=== PATIENT | male | born 1945 | race Caucasian/White ===

== ENCOUNTER 2016-07-11 18:16 | Emergency (ER) | payer MEDICARE, MEDICAID ==
--- NOTE | 2016-07-11 18:32 | ED Physician Chart ---
Chief Complaint/HPI - Patient Information Date Seen:: 07/11/16 Time Seen:: 18:25 Chief Complaint:: Urinary retention for at least 3 hours. History of Present Illness:: Pt has h/o BPH with prior urinary retention, requiring Jerome catheterization. Pt was managed by his urologist Dr. Shaikh. Pt has had recurrence of urinary retention for at least 3 hours prior to arrival to this ER. No new medication use. Pt has had much pressure in suprapubic area. No fever. No N/V/D with last BM this morning, normal in color/consistency. No hematochezia or melena. Allergies:: NKA Vitals:: see Nurse Note. Historian:: Patient Family MD/PCP:: unknown LMP:: N/A Review:: Nurse's Note Reviewed Review of Systems - Review of Systems General/Constitutional: No fever, No chills, No weight loss, No weakness, No diaphoresis, No edema, No loss of appetite Skin: No skin lesions, No rash, No bruising Head: No headache, No light-headedness Eyes: No loss of vision, No pain, No diplopia ENT: Earache Neck: No neck pain, No swelling, No thyromegaly, No stiffness, No mass noted Cardio Vascular: No chest pain, No palpitations, No PND, No orthopnea, No edema Pulmonary: No SOB, No cough, No sputum, No wheezing GI: No nausea, No vomiting, No diarrhea, Pain (suprapubic pressure pain due to urinary retention, see HPI.), No melena, No hematochezia, No constipation, No hematemesis G/U: No dysuria, No frequency, No hematuria, Other (urinary retention, see HPI.) Musculoskeletal: No bone or joint pain, No back pain, No muscle pain Endocrine: No polyuria, No polydipsia Psychiatric: No prior psych history Hematopoietic: No bruising, No lymphadenopathy Allergic/Immuno: No urticaria, No angioedema Neurological: No syncope, No focal symptoms, No weakness, No paresthesia, No headache, No seizure, No dizziness, No confusion, No vertigo Past Medical History - Past Medical History Past Medical History: Other (BPH, colon CA '94, s/p surgical resection, on remission.) Family History: None Social History: Smoker (One cigar every 3 days. Pt has been informed about health risks associated with tobacco and has been advised to quit. Pt acknowledges understanding.), Alcohol (Occasional), Single, Other (lives with her brother.) Employment:: unemployed. Surgical History: other (partial colonic resection in .) Psychiatricy History: None Medication: None Family Medical History - Family Member Mother History Unknown: Yes Ethnicity: Non- Living Status: Still Living Physical Exam - Physical Examination General/Constitutional: Awake, Well-developed, well-nourished, Alert, GCS 15, Non-toxic appearing, Ambulatory Other Gen/Cons comments:: Breathes comfortably, speaks clearly, and ambulates without difficulty. Pt has mild distress due to urinary retention. Eyes: Lids, conjuctiva normal Skin: Nl inspection, No rash, No skin lesions, No ecchymosis, Well hydrated, No lymphadenopathy ENMT: External ears, nose nl, Nasal exam nl, Lips, teeth, gums nl, Oropharynx nl Neck: Nontender, Full ROM w/o pain, No nuchal rigidity, No mass, No stridor Respiratory: Nl effort/Exclusion, Clear to Auscultation, No Wheeze/Rhonchi/Rales Cardio Vascular: RRR, No murmur, gallop, rubs, NL S1 S2 GI: No organomegaly, No hernia, Normal BS's, No mass/bruits, No McBurney tenderness Other GI comments:: suprapubic distension noticed with tenderness. No R/G. Pt declined rectal exam as he was diagnosed with BPH in the past with the same symptom. Pt prefers to be followed by his urologist Dr. Shaikh for further evaluation tomorrow. : No CVA tenderness, NL external genitalia Other comments:: Normal male external genitalia. Testes are descended bilaterally. No scrotal tenderness or swelling. No penile discharge or bleeding. No inguinal lymphadenopathy. Extremities: No edema Neuro/Psych: Alert/oriented (oriented x 3), Judgement/insight normal, Mood normal, Normal gait, No focal deficits Labs/Radiology/EKG Results - Lab Results Results: Laboratory Tests 07/11/16 07/11/16 07/11/16 18:45 19:17 19:17 WBC 7.6 RBC 5.29 Hgb 15.8 Hct 46.5 MCV 87.9 MCH 29.9 MCHC Differential 34.0 RDW 12.7 Plt Count 161 MPV 8.5 Neutrophils % 72.4 Lymphocytes % 19.2 L Monocytes % 6.6 Eosinophils % 1.7 Basophils % 0.1 PT 10.9 INR 1.05 PTT (Actin FS) 27.9 Sodium Potassium Chloride Carbon Dioxide Anion Gap BUN Creatinine Est GFR ( Amer) Est GFR (Non-Af Amer) BUN/Creatinine Ratio Glucose Calcium Urine Source JEROME [place] Urine Color STRAW Urine Clarity CLEAR Urine pH 5.5 Ur Specific [place] Urine Protein NEGATIVE Urine Glucose (UA) NEGATIVE Urine Ketones NEGATIVE Urine Blood TRACE Urine Nitrate NEGATIVE Urine Bilirubin NEGATIVE Urine Urobilinogen 0.2 Ur Leukocyte Esterase NEGATIVE Urine RBC 0-1 Urine WBC 0-2 Ur Epithelial Cells RARE Urine Bacteria FEW 07/11/16 19:17 WBC RBC Hgb Hct MCV MCH MCHC Differential RDW Plt Count MPV Neutrophils % Lymphocytes % Monocytes % Eosinophils % Basophils % PT INR PTT (Actin FS) Sodium 138 Potassium 3.8 Chloride 108 H Carbon Dioxide 23.0 Anion Gap 10.8 BUN 11 Creatinine 0.9 Est GFR ( Amer) TNP Est GFR (Non-Af Amer) TNP BUN/Creatinine Ratio 12.2 Glucose 108 H Calcium 9.4 Urine Source Urine Color Urine Clarity Urine pH Ur Specific [place] Urine Protein Urine Glucose (UA) Urine Ketones Urine Blood Urine Nitrate Urine Bilirubin Urine Urobilinogen Ur Leukocyte Esterase Urine RBC Urine WBC Ur Epithelial Cells Urine Bacteria ED Septic Shock - . Is Septic Shock (SBP<90, OR Lactate>4 mmol\L) present?: No Reassessment (Disposition) - Reassessment Reassessment:: 1930 Pt has been repeatedly evaluated. Pt feels much better after Jerome catherization. Awaiting lab results. 2004 Pt remains stable without suprapubic pain or discomfort. Jerome catheter functions properly with good urine flow. Lab results just became available. Lab findings have been reviewed with pt. Pt requests to go home now and does not want further observation/management in hospital. Aftercare instructions given. Instructions on Jerome catheter and bag care is to be provided by nursing staff prior to discharge. Reassessment Condition:: Improved - Diagnosis Diagnosis:: Urinary retention due to BPH, stable and resolved with Jerome catheter insertion. - Aftercare/Follow up Instructions Aftercare/Follow-Up Instructions:: Refer to Discharge Instructions Notes:: Jerome catheter and bag care as instructed. F/U with urologist Dr. Shaikh in one day for follow up and further care. Return to ER immediately if condition worsens or if any further questions/ problems. Medication Prescribed:: None - Patient Disposition Discharge/Transfer:: Home Time:: 20:10 Condition at Disposition:: Stable, Improved
[2016-07-11 19:20] LABS: % BASOPHILS 0.1 % (0.0-2.0); % EOSINOPHILS 1.7 % (0.0-5.0); % LYMPHOCYTES 19.2 % (20.0-50.0); % MONOCYTES 6.6 % (2.0-10.0); % NEUTROPHILS 72.4 % (40.0-80.0); HEMATOCRIT 46.5 % (39.0-49.0); HEMOGLOBIN 15.8 gm/dL (12.6-17.4); MEAN CELL VOLUME 87.9 fl (80-99); MEAN CORPUSCULAR HEMOGLOBIN 29.9 pg (27.0-31.0); MEAN PLATELET VOLUME 8.5 fl; NEUTROPHILE ABSOLUTE 5.5 Th/cmm (1.8-8.0); PLATELET COUNT 161 Th/cmm (150-400); RED BLOOD COUNT 5.29 Mil/cmm (3.80-5.80); RED CELL DISTRIBUTION WIDTH 12.7 % (11.5-20.0); WHITE BLOOD COUNT 7.6 Th/cmm (4.8-10.8)
[2016-07-11 19:36] LABS: INR 1.05 (0.5-1.4); PROTHROMBIN TIME (TEST) 10.9 SECONDS (9.5-11.5)
[2016-07-11 19:39] LABS: ANION GAP 10.8 (7.0-16.0); BUN - UREA NITROGEN 11 mg/dL (7-25); BUN/CREATININE RATIO 12.2; CALCIUM SERUM 9.4 mg/dL (8.6-10.3); CHLORIDE 108 mEq/L (98-107); CREATININE - SERUM 0.9 mg/dL (0.7-1.3); GLUCOSE 108 mg/dL (70-105); POTASSIUM SERUM 3.8 mEq/L (3.5-5.1); SODIUM SERUM 138 mEq/L (136-145)
[2016-07-11 19:48] LABS: URINE BILIRUBIN NEGATIVE (NEGATIVE); URINE BLOOD TRACE (NEGATIVE); URINE COLOR STRAW; URINE GLUCOSE (UA) NEGATIVE (NEGATIVE); URINE KETONE NEGATIVE (NEGATIVE); URINE PH 5.5; URINE PROTEIN NEGATIVE (NEGATIVE); URINE UROBILINOGEN 0.2 E.U./dL (0.2 - 1.0)
[2016-07-11 19:49] LABS: URINE BACTERIA FEW /hpf (NONE SEEN); URINE EPITHELIAL CELLS RARE /lpf (FEW); URINE RBC 0-1 /hpf (0-5); URINE WBC 0-2 /hpf (0-5)
== END 2016-07-11 20:25 | disposition home or self-care (01) ==
LOC: ER 18:16
DX: N40.0 Benign prostatic hyperplasia without lower urinary tract symptoms (principal); R33.9 Retention of urine, unspecified; F17.210 Nicotine dependence, cigarettes, uncomplicated; Z43.5 Encounter for attention to cystostomy; Z98.890 Other specified postprocedural states
CPT/HCPCS: 36415-UA; 80048-TC; 81001-TC; 85025-TC; 85610-TC; Z7502; Z7610

== ENCOUNTER 2016-07-12 11:15 | Emergency (ER) | payer MEDICARE, MEDICAID ==
--- NOTE | 2016-07-12 11:41 | ED Physician Chart ---
Male Urogenital HPI - General Chief complaint: Urinary Retention Stated complaint: DISCOMFORT ON CATHETER Time Seen by Provider: 07/12/16 11:20 Source: patient, family Mode of arrival: ambulatory Limitations: no limitations - History of Present Illness Complaint: other (Null Catheter Discomfort) Onset (ago): day(s) Duration: intermittent Location: penis Severity: mild Severity scale (1-10): 2 Quality: dull Improves with: none Worsens with: none indwelling catheter Reports: denies other symptoms - Related Data Home Medications Medication Instructions Recorded Confirmed NK [No Home Meds] 07/12/16 07/12/16 Allergies Allergy/AdvReac Type Severity Reaction Status Date / Time No Known Allergies Allergy Verified 07/11/16 18:30 Family Medical History - Family Member Mother History Unknown: Yes Ethnicity: Non- Living Status: Still Living Physical Exam - General Limitations: no limitations General appearance: alert, in no apparent distress - Head Head exam: atraumatic - Eye Eye exam: Present: normal appearance, PERRL, EOMI - ENT ENT exam: normal exam - Expanded ENT Exam Mouth exam: Present: normal external inspection Teeth exam: Present: normal inspection Throat exam: Present: normal inspection - Neck Neck exam: Present: normal inspection - Chest Chest inspection: Present: normal inspection - Respiratory Respiratory exam: Present: normal lung sounds bilaterally - Cardiovascular Cardiovascular exam: Present: regular rate, normal rhythm - Abdominal Exam Abdominal exam: Present: soft - Rectal Exam Rectal exam: Present: prostate enlargement - exam: Present: normal inspection, other (Null Catheter in place) - Extremities Exam Extremities exam: Present: normal inspection, full ROM - Expanded Upper Extremity Exam Shoulder exam: Present: normal inspection, full ROM Arm exam: Present: Normal inspection, Full ROM Elbow exam: Present: Normal Inspection, Full ROM Forearm/Wrist exam: Present: Normal inspection, Full ROM Hand exam: Present: normal inspection, full ROM - Expanded Lower Extremity Exam Hip/Pelvis exam: Present: normal inspection, full ROM Upper leg exam: Present: normal inspection, full ROM Knee exam: Present: normal inspection, full ROM Lower leg exam: Present: normal inspection, full ROM Ankle exam: Present: normal inspection, full ROM Foot/toe exam: Present: normal inspection, full ROM Neurovascular/Tendon exam: Present: normal capillary refill Gait: observed and normal - Back Exam Back exam: Present: normal inspection, full ROM - Neurological Exam Neurological exam: Present: alert, oriented X3, CN II-XII intact, normal gait, reflexes normal - Psychiatric Psychiatric exam: Present: normal affect, normal mood - Skin Skin exam: Present: warm, intact Disposition Clinical Impression: URINARY RETENTION AND DISCONTINUATION FOLEYY Disposition: PT DISCHARGED HOME Condition: Stable Instructions: Prostatitis, [id number], Urinary Retention, Acute, Male Additional Instructions: ACIs given for BPH, UR, and Null Catheter Removal DXs; RTER prn if existing s/ s reoccur and/or get worse and/or any other new s/s occur; Refer to Urologist JC; F/U with PMD in one day or prn; RTER prn if concerned Referrals: , Primary [Other] ED Discharge Plan - Patient Disposition Instructions: Prostatitis, [id number], Urinary Retention, Acute, Male Accepting Physician: , Primary [Other]
== END 2016-07-12 12:22 | disposition home or self-care (01) ==
LOC: ER 11:15
DX: R33.9 Retention of urine, unspecified (principal)
CPT/HCPCS: Z7502

== ENCOUNTER 2016-09-27 10:25 | Emergency (ER) | payer MEDICARE, MEDICAID ==
--- NOTE | 2016-09-27 11:24 | ED Physician Chart ---
Chief Complaint/HPI - Patient Information Date Seen:: 09/27/16 Time Seen:: 10:35 Chief Complaint:: chest pain for 3 months intermittantly, sleep disorder and anxiety. History of Present Illness:: Patient with complicated, multifaceted symptom complaint some of which have been present for years intermittently getting worse over the last 3 months. Patient states that he has had antecedent history of depression diagnosed over 10 years ago that stopped taking medication because he felt it might not be helping him. Over the last 3 months, perhaps as long as a year the patient describes vague abdominal tightness which radiates up into the central chest area and the throat. The patient does not say that this is painful but it does produce an associated anxiety. Patient states that it is worse after eating, worse when trying to sleep at night, and sometimes worse after drinking the water. The patient has been taking Pepto-Bismol almost every day for several months which seems to help. Patient also uses Tylenol PM at night which she states is helpful as well. Specifically the patient denies nausea, vomiting, diarrhea, shortness of breath, diaphoresis, association with exercise, cough, unexplained weight loss or night sweats. The tightness does not radiate to the back or into the lower abdomen. Allergies:: Allergies Allergy/AdvReac Type Severity Reaction Status Date / Time No Known Allergies Allergy Verified 07/11/16 18:30 Vitals:: Vital Signs - 8 hr 09/27/16 10:46 Temp 97.3 F HR 85 RR 16 BP 192/92 O2 Sat % 100 Historian:: Patient Review:: Nurse's Note Reviewed Review of Systems - Review of Systems General/Constitutional: No fever, No chills, No weight loss, No weakness, No diaphoresis, No edema, No loss of appetite Skin: Skin lesions ("mole' on abd for years, unchanging per pt.), No rash, No bruising Head: No headache, No light-headedness Eyes: No loss of vision, No pain Neck: No neck pain, No thyromegaly, No mass noted Cardio Vascular: Chest pain, No palpitations, No edema (not pain but pressure, worse laying flat) Pulmonary: No SOB, No cough, No sputum, No wheezing GI: No nausea, No vomiting, No diarrhea, Pain (midepigastrium) G/U: No dysuria, No frequency, No hematuria Musculoskeletal: No bone or joint pain, No back pain Psychiatric: Depression, Anxiety, No suicidal ideation Hematopoietic: No bruising Allergic/Immuno: No angioedema Neurological: No syncope, No focal symptoms, No weakness, No headache, No confusion Past Medical History - Past Medical History Obtainable: Yes Past Medical History: Other (colon ca, bad teeth, depression/anxiety) Family History: None, Cancer Social History: Smoker (ex), Alcohol (occ), No Drug Use, Single Surgical History: other (hemicolectomy 1993, bowel obstruction 1999) Medication: Reviewed (OTC) Family Medical History - Family Member Mother History Unknown: Yes Ethnicity: Non- Living Status: Still Living Physical Exam - Physical Examination General/Constitutional: Awake, Well-developed, well-nourished, Alert, No distress, GCS 15, Non-toxic appearing Other Gen/Cons comments:: In general the patient is a 71-year-old male lying quietly on the gurney in no apparent distress. Vital signs are stable and the skin vital signs are entirely normal. HEENT is remarkable for poor dentition with multiple rotted tooth stumps at the gingival margin. The neck is unremarkable for lymph adenopathy, thyromegaly, stridor, and he has full range of motion with non- tenderness. Chest exam is remarkable for clear breath sounds bilaterally with no rales no rubs no rhonchi and no asymmetry of the breath sounds. Cardiovascular exam is unremarkable for murmur, and the peripheral pulses are all symmetrical. The abdominal exam is unremarkable for distention, tenderness , mass, bruit, and there is no evidence of hernia. There is a black brown irregular mole on the anterior abdominal scan which the patient says this been unchanged for quite some time. There is evidence of a lower abdominal surgical scar which is well-healed and lacks any malignant features of mass, necrosis, or fixed underlying lesion. Bowel sounds are normal and has no evidence of organomegaly. Examination of the extremities is normal and symmetrical. Neurological exam is remarkable for 5 over 5 strength, normal deep tendon reflexes, no evidence of tremor, no cerebellar signs, negative drift, and cranial nerves II through XII show symmetrical motor function. Mental status exam is essentially normal except for perhaps mild anxiety but the patient has no cognitive impairment and gives a cogent, reliable history. Labs/Radiology/EKG Results - Lab Results Results: There is a normal troponin and we are currently awaiting a TSH which may be a send out. - EKG Interpretations EKG Time:: 10:36 Rate & Rhythm: nsr @ 85 Pool: P35, QRS 98, QTc 451 Comments:: There are no prior EKGs available for comparison. There are traumatic S deflections in V3 lead V1 and V2 which may represent the beginning of an incomplete right bundle-branch block or interventricular conduction defect. There are no dictations of acute coronary syndrome. Assessment - Assessment General Assessment: Medical decision makin-year-old male with years to months of long-standing problems needs emergency reevaluation for acute coronary syndrome, but the vast majority of his symptoms are most consistent with GERD, hiatal hernia, just abated by underlying depression and anxiety disorder. The patient has not had regular medical follow-up since his hemicolectomy for colon cancer in 1993 and I have recommended to him that he seek clinical follow-up for all of his chronic issues and the patient verbalizes understanding of this recommendation. I have also asked the patient to serially evaluate the mole on his abdomen and to consider dental extraction of rotted teeth for overall health reasons. ED Septic Shock - . Is Septic Shock (SBP<90, OR Lactate>4 mmol\\L) present?: No - <6hrs of presentation: Vital Signs: Vital Signs - 8 hr 09/27/16 10:46 Temp 97.3 F HR 85 RR 16 BP 192/92 O2 Sat % 100 Reassessment (Disposition) - Reassessment Reassessment Condition:: Improved - Diagnosis Diagnosis:: #1. Chronic intermittent chest tightness, uncharacterized. #2. Generalized anxiety with prior history of depression. #3. Severe dental caries. #4. Suspected hiatal hernia and or reflux disease. - Aftercare/Follow up Instructions Aftercare/Follow-Up Instructions:: Refer to Discharge Instructions, Counseled pt & family regarding lab results/diagnosis & need follow up Medication Prescribed:: Tums, liquid antacids, or OTC antacid ida. - Patient Disposition Discharge/Transfer:: Home Condition at Disposition:: Stable ED Discharge Plan - Patient Disposition Admit/Discharge/Transfer: PT DISCHARGED HOME Condition at Disposition: Stable
[2016-09-27 11:29] LABS: % BASOPHILS 0.3 % (0.0-2.0); % EOSINOPHILS 5.1 % (0.0-5.0); % LYMPHOCYTES 20.5 % (20.0-50.0); % MONOCYTES 8.4 % (2.0-10.0); % NEUTROPHILS 65.7 % (40.0-80.0); HEMATOCRIT 43.6 % (39.0-49.0); HEMOGLOBIN 14.8 gm/dL (12.6-17.4); MEAN CORPUSCULAR HEMOGLOBIN 29.8 pg (27.0-31.0); MEAN CORPUSCULAR HGB CONC 33.9 pg (28.0-36.0); MEAN PLATELET VOLUME 8.9 fl; NEUTROPHILE ABSOLUTE 3.7 Th/cmm (1.8-8.0); PLATELET COUNT 162 Th/cmm (150-400); RED BLOOD COUNT 4.96 Mil/cmm (3.80-5.80); RED CELL DISTRIBUTION WIDTH 12.8 % (11.5-20.0)
[2016-09-27 11:31] LABS: WHITE BLOOD COUNT 5.6 Th/cmm (4.8-10.8)
[2016-09-27 11:52] LABS: ALB/GLOB RATIO 1.4 (1.0-1.8); ALKALINE PHOSPHATASE 84 U/L (34-104); ANION GAP 6.2 (7.0-16.0); BILIRUBIN,TOTAL 0.8 mg/dL (0.3-1.0); BUN - UREA NITROGEN 13 mg/dL (7-25); CALCIUM SERUM 9.4 mg/dL (8.6-10.3); CARBON DIOXIDE 29.4 mEq/L (21.0-31.0); CHLORIDE 104 mEq/L (98-107); GLUCOSE 120 mg/dL (70-105); POTASSIUM SERUM 3.6 mEq/L (3.5-5.1); SGOT 17 U/L (13-39); SGPT/ALT 16 U/L (7-52); SODIUM SERUM 136 mEq/L (136-145)
== END 2016-09-27 13:04 | disposition home or self-care (01) ==
LOC: ER 10:25
DX: R07.89 Other chest pain (principal); F41.8 Other specified anxiety disorders; K02.9 Dental caries, unspecified; F17.200 Nicotine dependence, unspecified, uncomplicated
CPT/HCPCS: 36415-UA; 80053-TC; 84443-TC; 84484-TC; 85025-TC; 93005

== ENCOUNTER 2016-10-24 20:03 | Emergency (ER) | payer MEDICARE, MEDICAID ==
--- NOTE | 2016-10-24 20:31 | ED Physician Chart ---
Chief Complaint/HPI - Patient Information Date Seen:: 10/24/16 Time Seen:: 20:20 Chief Complaint:: Abdominal pain for 3 months. History of Present Illness:: Pt has had diffuse abdominal pain for about 3 months that has been worse over past few days. Pain is characterized as constant and pressure-like. Pain can be aggravated with lying down, improved with sitting or standing. No fever. No N/ V. No lightheadedness. Last BM 2 days ago which was small in quantity. Normal in color/consistency. No hematochezia or melena. Pt reportedly had colon CA about 23 years ago, s/p surgical resection and has been on remission. Pt denies gross hematuria. No urinary frequency, urgency, or dysuria. Allergies:: Allergies Allergy/AdvReac Type Severity Reaction Status Date / Time No Known Allergies Allergy Verified 10/24/16 20:09 Vitals:: Vital Signs - 8 hr 10/24/16 20:05 Temp 99.6 F HR 77 RR 18 BP 159/81 O2 Sat % 99 Historian:: Patient Family MD/PCP:: Dr. Antoine LMP:: N/A Review:: Nurse's Note Reviewed Review of Systems - Review of Systems General/Constitutional: No fever, No chills, Weight loss (about 15 pounds in 3 months.), No weakness, No edema, No loss of appetite Skin: No bruising Head: No headache, No light-headedness Eyes: No loss of vision, No diplopia ENT: No earache, No nasal drainage, No sore throat, No tinnitus Neck: No neck pain, No swelling, No stiffness, No mass noted Cardio Vascular: No chest pain, No palpitations, No orthopnea, No edema Pulmonary: No SOB, No cough, No wheezing GI: No nausea, No vomiting, No diarrhea, Pain, No melena, No hematochezia, Constipation (?), No hematemesis G/U: No dysuria, No frequency, No hematuria Musculoskeletal: No bone or joint pain, No back pain, No muscle pain Endocrine: No polyuria, No polydipsia Psychiatric: Prior psych history, No depression, No anxiety, No suicidal ideation, No homicidal ideation, No auditory hallucination Hematopoietic: No bruising, No lymphadenopathy Allergic/Immuno: No urticaria, No angioedema Neurological: No syncope, No focal symptoms, No weakness, No paresthesia, No headache, No seizure, No dizziness, No confusion, No vertigo Past Medical History - Past Medical History Past Medical History: Other (Prior colon CA about 22 y/a, s/p partial colectomy , on remission. BPH) Family History: Cancer (sister.) Social History: Non Smoker (former smoker. Pt has stopped tobacco use about 2 months ago.), Alcohol (occasional), No Drug Use, Single, Other (lives with his brother.) Surgical History: other (partial colectomy due to CA about 22 y/a. Surgery for SBO in 1999) Psychiatricy History: Depression Medication: Reviewed Family Medical History - Family Member Mother History Unknown: Yes Ethnicity: Non- Living Status: Still Living Physical Exam - Physical Examination General/Constitutional: Awake, Well-developed, well-nourished, Alert, No distress, GCS 15, Non-toxic appearing, Ambulatory Other Gen/Cons comments:: Breathes comfortably, speaks clearly, and interacts normally. Head: Atraumatic Eyes: Lids, conjuctiva normal, PERRL, EOMI Other Eyes comments:: anicteric sclera. Skin: Nl inspection, No rash, No skin lesions, No ecchymosis, Well hydrated, No lymphadenopathy ENMT: External ears, nose nl, Nasal exam nl, Oropharynx nl Neck: Nontender, Full ROM w/o pain, No JVD, No nuchal rigidity, No mass, No stridor Respiratory: Nl effort/Exclusion, Clear to Auscultation, No Wheeze/Rhonchi/Rales Cardio Vascular: RRR, No murmur, gallop, rubs GI: No tenderness/rebounding/guarding, No organomegaly, No hernia, Normal BS's, Nondistended, No mass/bruits, No McBurney tenderness Other GI comments:: Vague diffuse discomfort with palpation. Negative James's, Demario's, and Grimes Sullivan's signs. Well healed extensive surgical scar noticed extending from upper to lower abdomen at midline. No R/G. No detectable mass or HSM. : No CVA tenderness Extremities: No tenderness or effusion, Full ROM, normal strength in all extremities, No edema Neuro/Psych: Alert/oriented (oriented x 3), Judgement/insight normal, Mood normal, Normal gait, No focal deficits Labs/Radiology/EKG Results - Lab Results Results: Laboratory Tests 10/24/16 10/24/16 10/24/16 20:10 20:10 20:10 WBC 8.5 D RBC 4.87 Hgb 14.6 Hct 43.8 MCV 89.8 MCH 29.9 MCHC Differential 33.3 RDW 12.7 Plt Count 184 MPV 9.3 Neutrophils % 63.8 Lymphocytes % 22.4 Monocytes % 9.5 Eosinophils % 3.7 Basophils % 0.6 PT 10.4 INR 1.00 PTT (Actin FS) 25.9 L Sodium 135 L Potassium 3.6 Chloride 105 Carbon Dioxide 26.7 Anion Gap 6.9 L BUN 17 Creatinine 1.1 Est GFR ( Amer) TNP Est GFR (Non-Af Amer) TNP BUN/Creatinine Ratio 15.5 Glucose 100 Calcium 9.4 Total Bilirubin 0.9 AST 17 ALT 13 Alkaline Phosphatase 87 Creatine Kinase 72 Troponin I Total Protein 7.2 Albumin 4.2 Globulin 3.0 Albumin/Globulin Ratio 1.4 Amylase 55 Lipase 14 10/24/16 20:10 WBC RBC Hgb Hct MCV MCH MCHC Differential RDW Plt Count MPV Neutrophils % Lymphocytes % Monocytes % Eosinophils % Basophils % PT INR PTT (Actin FS) Sodium Potassium Chloride Carbon Dioxide Anion Gap BUN Creatinine Est GFR ( Amer) Est GFR (Non-Af Amer) BUN/Creatinine Ratio Glucose Calcium Total Bilirubin AST ALT Alkaline Phosphatase Creatine Kinase Troponin I < 0.01 L Total Protein Albumin Globulin Albumin/Globulin Ratio Amylase Lipase Laboratory Last Values WBC 8.5 Th/cmm (4.8-10.8) D 10/24/16 20:10 RBC 4.87 Mil/cmm (3.80-5.80) 10/24/16 20:10 Hgb 14.6 gm/dL (12.6-17.4) 10/24/16 20:10 Hct 43.8 % (39.0-49.0) 10/24/16 20:10 MCV 89.8 fl (80-99) 10/24/16 20:10 MCH 29.9 pg (27.0-31.0) 10/24/16 20:10 MCHC Differential 33.3 pg (28.0-36.0) 10/24/16 20:10 RDW 12.7 % (11.5-20.0) 10/24/16 20:10 Plt Count 184 Th/cmm (150-400) 10/24/16 20:10 MPV 9.3 fl 10/24/16 20:10 Neutrophils % 63.8 % (40.0-80.0) 10/24/16 20:10 Lymphocytes % 22.4 % (20.0-50.0) 10/24/16 20:10 Monocytes % 9.5 % (2.0-10.0) 10/24/16 20:10 Eosinophils % 3.7 % (0.0-5.0) 10/24/16 20:10 Basophils % 0.6 % (0.0-2.0) 10/24/16 20:10 PT 10.4 SECONDS (9.5-11.5) 10/24/16 20:10 INR 1.00 (0.5-1.4) 10/24/16 20:10 PTT (Actin FS) 25.9 SECONDS (26.0-38.0) L 10/24/16 20:10 Sodium 135 mEq/L (136-145) L 10/24/16 20:10 Potassium 3.6 mEq/L (3.5-5.1) 10/24/16 20:10 Chloride 105 mEq/L (98-107) 10/24/16 20:10 Carbon Dioxide 26.7 mEq/L (21.0-31.0) 10/24/16 20:10 Anion Gap 6.9 (7.0-16.0) L 10/24/16 20:10 BUN 17 mg/dL (7-25) 10/24/16 20:10 Creatinine 1.1 mg/dL (0.7-1.3) 10/24/16 20:10 Est GFR ( Amer) TNP 10/24/16 20:10 Est GFR (Non-Af Amer) TNP 10/24/16 20:10 BUN/Creatinine Ratio 15.5 10/24/16 20:10 Glucose 100 mg/dL (70-105) 10/24/16 20:10 Calcium 9.4 mg/dL (8.6-10.3) 10/24/16 20:10 Total Bilirubin 0.9 mg/dL (0.3-1.0) 10/24/16 20:10 AST 17 U/L (13-39) 10/24/16 20:10 ALT 13 U/L (7-52) 10/24/16 20:10 Alkaline Phosphatase 87 U/L (34-104) 10/24/16 20:10 Creatine Kinase 72 U/L (30-223) 10/24/16 20:10 Troponin I < 0.01 ng/mL (0.01-0.05) L 10/24/16 20:10 Total Protein 7.2 gm/dL (6.0-8.3) 10/24/16 20:10 Albumin 4.2 gm/dL (4.2-5.5) 10/24/16 20:10 Globulin 3.0 gm/dL 10/24/16 20:10 Albumin/Globulin Ratio 1.4 (1.0-1.8) 10/24/16 20:10 Amylase 55 U/L (29-103) 10/24/16 20:10 Lipase 14 U/L (11-82) 10/24/16 20:10 Urine Source CLEAN C 10/24/16 22:00 Urine Color YELLOW 10/24/16 22:00 Urine Clarity SLIGHT HAZY (CLEAR) 10/24/16 22:00 Urine pH 5.0 10/24/16 22:00 Ur Specific [place] 1.030 (1.005-1.030) 10/24/16 22:00 Urine Protein 30 mg/dL (NEGATIVE) H 10/24/16 22:00 Urine Glucose (UA) NEGATIVE mg/dL (NEGATIVE) 10/24/16 22:00 Urine Ketones NEGATIVE mg/dL (NEGATIVE) 10/24/16 22:00 Urine Blood NEGATIVE (NEGATIVE) 10/24/16 22:00 Urine Nitrate NEGATIVE (NEGATIVE) 10/24/16 22:00 Urine Bilirubin NEGATIVE (NEGATIVE) 10/24/16 22:00 Urine Urobilinogen 0.2 E.U./dL (0.2 - 1.0) 10/24/16 22:00 Ur Leukocyte Esterase NEGATIVE (NEGATIVE) 10/24/16 22:00 Urine RBC NONE SEEN /hpf (0-5) 10/24/16 22:00 Urine WBC 0-2 /hpf (0-5) 10/24/16 22:00 Ur Epithelial Cells OCCASIONAL /lpf (FEW) 10/24/16 22:00 Calcium Oxalate Crystal FEW /hpf 10/24/16 22:00 Urine Bacteria FEW /hpf (NONE SEEN) 10/24/16 22:00 Urine Mucus MODERATE /lpf (FEW) 10/24/16 22:00 - Radiology Results Results: CT of abdomen and pelvis: Multiple liver cysts, largest one 9 cm near medial inferior edge of the liver at the bipin hepatis. GB impacted with stones. No hydro. No free fluid. Air distended colon, fecal impaction rectum. No diverticulitis. Appendix not seen. Enlarged prostates. T-11 bone island. Official report per Dr. West sexton, radiologist. - EKG Interpretations EKG Time:: 20:50 Rate & Rhythm: NSR with VR 70 Comments:: No acute ischemic changes. ED Septic Shock - . Is Septic Shock (SBP<90, OR Lactate>4 mmol\L) present?: No - <6hrs of presentation: Vital Signs: Vital Signs - 8 hr 10/24/16 20:05 Temp 99.6 F HR 77 RR 18 BP 159/81 O2 Sat % 99 Reassessment (Disposition) - Reassessment Reassessment:: 2049 Pain medication was offered, but pt declined and stated that his pain is tolerable. 2154 Pt remains stable. EKG, CT report and available lab findings have been reviewed with pt. Awaiting remaining lab studies. 2299 Remaining lab results just became available. Pt denies any abdominal pain at the present and does not want any pain control. Pt states that he just feels constipated. Pt has been taking po well without N/V. Discussed with pt at length and admission to hospital was offered, pt decides to go home now and does not want any further observation/management in hospital. He prefers to try using fleet enema at home and will follow with PCP Dr. Antoine tomorrow. Aftercare instructions have been given. Copies of lab findings and CT report are to be given to pt per nursing staff to take to PCP Dr. Antoine tomorrow for followup. Reassessment Condition:: Improved - Diagnosis Diagnosis:: Chronic abdominal pain by hx with fecal impaction, incidental findings of hepatic cyst, and gallstones on abdominal CT. Pt currently does not have abdominal pain but has h/o constipation. Stable. - Aftercare/Follow up Instructions Aftercare/Follow-Up Instructions:: Refer to Discharge Instructions Notes:: No solid food for now. Clear liquid only. May take milk of magnesia 30 ml po q6h as directed for fecal impaction up to 2 doses. May use Fleet enema one per rectum 3 hours after milk of magnesia [id number] up to 2 doses. Abdominal pain instructions given. Bowel retraining instructions given. F/U with PCP Dr. Antoine in one day for recheck. Return to ER immediately if conditon worsens or if any further questions/problems. Medication Prescribed:: None - Patient Disposition Discharge/Transfer:: Home Time:: 11:10 Condition at Disposition:: Stable, Improved
[2016-10-24 20:43] LABS: % BASOPHILS 0.6 % (0.0-2.0); % EOSINOPHILS 3.7 % (0.0-5.0); % LYMPHOCYTES 22.4 % (20.0-50.0); % MONOCYTES 9.5 % (2.0-10.0); % NEUTROPHILS 63.8 % (40.0-80.0); HEMATOCRIT 43.8 % (39.0-49.0); HEMOGLOBIN 14.6 gm/dL (12.6-17.4); MEAN CELL VOLUME 89.8 fl (80-99); MEAN CORPUSCULAR HEMOGLOBIN 29.9 pg (27.0-31.0); MEAN CORPUSCULAR HGB CONC 33.3 pg (28.0-36.0); MEAN PLATELET VOLUME 9.3 fl; NEUTROPHILE ABSOLUTE 5.4 Th/cmm (1.8-8.0); PLATELET COUNT 184 Th/cmm (150-400); RED BLOOD COUNT 4.87 Mil/cmm (3.80-5.80); RED CELL DISTRIBUTION WIDTH 12.7 % (11.5-20.0)
[2016-10-24 20:46] LABS: WHITE BLOOD COUNT 8.5 Th/cmm (4.8-10.8)
[2016-10-24 20:50] LABS: PROTHROMBIN TIME (TEST) 10.4 SECONDS (9.5-11.5)
[2016-10-24 20:57] LABS: ALB/GLOB RATIO 1.4 (1.0-1.8); ALKALINE PHOSPHATASE 87 U/L (34-104); AMYLASE SERUM 55 U/L (29-103); ANION GAP 6.9 (7.0-16.0); BILIRUBIN,TOTAL 0.9 mg/dL (0.3-1.0); BUN - UREA NITROGEN 17 mg/dL (7-25); BUN/CREATININE RATIO 15.5; CALCIUM SERUM 9.4 mg/dL (8.6-10.3); CARBON DIOXIDE 26.7 mEq/L (21.0-31.0); CHLORIDE 105 mEq/L (98-107); CREATININE - SERUM 1.1 mg/dL (0.7-1.3); GLUCOSE 100 mg/dL (70-105); LIPASE 14 U/L (11-82); POTASSIUM SERUM 3.6 mEq/L (3.5-5.1); SGOT 17 U/L (13-39); SGPT/ALT 13 U/L (7-52); SODIUM SERUM 135 mEq/L (136-145)
[2016-10-24 22:33] LABS: URINE COLOR YELLOW
[2016-10-24 22:34] LABS: URINE BACTERIA FEW /hpf (NONE SEEN); URINE BILIRUBIN NEGATIVE (NEGATIVE); URINE BLOOD NEGATIVE (NEGATIVE); URINE CALCIUM OXALATE CRYSTALS FEW /hpf; URINE EPITHELIAL CELLS OCCASIONAL /lpf (FEW); URINE GLUCOSE (UA) NEGATIVE (NEGATIVE); URINE KETONE NEGATIVE (NEGATIVE); URINE PROTEIN 30 mg/dL (NEGATIVE); URINE RBC NONE SEEN /hpf (0-5); URINE UROBILINOGEN 0.2 E.U./dL (0.2 - 1.0); URINE WBC 0-2 /hpf (0-5)
--- NOTE | 2016-10-25 14:28 | Diagnostic Imaging Report ---
Exam: CT examination of the pelvis HISTORY: pain Total DLP equals 401 CTDI equals 8.8 Findings. Multiple contiguous thin section abdomen pelvis obtained from lower thorax to the symphysis without the administration of intravenous oral contrast material therefore the study is limited. The study demonstrates normal aeration of lung parenchyma the bases. Mild atelectatic change in the right base appreciated There is evidence of for multiple liver cysts, largest one measuring 9 cm in diameter near the bipin hepatis. The adrenal glands are normal The kidneys demonstrate no evidence of obstructive uropathy or nephrolithiasis. Mild calcification of the abdominal aorta appreciated. Large amount of fecal content is noted in the rectum. There is evidence for impaction of the gallbladder with calculi. There is evidence for air distention of colon likely most likely nonspecific. Appendix is not seen. There is no evidence of diverticulitis. Prostate gland is enlarged. Incidentally noted T11 bone island. IMPRESSION: 1. Atelectasis right lung base 2. Cholelithiasis, gallbladder impacted with calculi 3. Multiple liver cysts. Largest one measuring 9 cm diameter in the bipin hepatis. 4. Air distended colon with fecal impaction content in the rectum.
== END 2016-10-24 23:35 | disposition home or self-care (01) ==
LOC: ER 20:03
DX: R10.84 Generalized abdominal pain (principal); K59.00 Constipation, unspecified
CPT/HCPCS: 36415-UA; 80053-TC; 81001-TC; 82150-TC; 82550-TC; 83690-TC; 84484-TC; 85025-TC; 85610-TC; 93005

== ENCOUNTER 2016-11-04 11:56 | Inpatient (IN) | payer MEDICARE, MEDICAID ==
--- NOTE | 2016-11-04 12:36 | ED Physician Chart ---
Chief Complaint/HPI - Patient Information Date Seen:: 11/04/16 Time Seen:: 12:10 Chief Complaint:: tired and weak History of Present Illness:: Patient states he's been tired and weak for last 3 months. He complains of yawning frequently. Patient has been constipated for 2 days. Patient had a CAT scan of the abdomen and pelvis on 10/25/2016 at this facility which showed gallbladder impacted with calculi and fecal impaction. Patient apparently has some vague ill-defined abdominal discomfort also. Allergies:: Allergies Allergy/AdvReac Type Severity Reaction Status Date / Time No Known Allergies Allergy Verified 11/04/16 12:16 Vitals:: Vital Signs - 8 hr 11/04/16 11/04/16 12:11 12:19 Temp 98.5 F HR 61 72 RR 16 17 BP 149/72 158/80 O2 Sat % 98 96 Historian:: Patient, Family Member Review of Systems - Review of Systems General/Constitutional: No fever, No chills Skin: No skin lesions Head: No headache Eyes: No loss of vision ENT: No earache, No sore throat Neck: No neck pain, No swelling Cardio Vascular: No chest pain, No palpitations Pulmonary: No SOB, No cough, No sputum GI: Other (see history) G/U: No dysuria, No hematuria Endocrine: No polyuria, No polydipsia Psychiatric: No prior psych history Hematopoietic: No bruising Allergic/Immuno: No urticaria Neurological: No syncope, Weakness Past Medical History - Past Medical History Past Medical History: HTN Family History: Other (atherosclerotic cardiovascular disease) Social History: Other (patient is a former smoker with a [id number] history; he drinks alcohol occasionally) Surgical History: other (colon cancer 23 years ago; laparotomy for adhesions) Medication: Reviewed Family Medical History - Family Member Mother History Unknown: Yes Ethnicity: Non- Living Status: Still Living Physical Exam - Physical Examination General/Constitutional: Well-developed, well-nourished, Alert, No distress Head: Atraumatic Eyes: Lids, conjuctiva normal, PERRL Skin: Nl inspection, No rash, No skin lesions, No ecchymosis ENMT: External ears, nose nl, Lips, teeth, gums nl, Oropharynx nl, Tonsils nl Neck: No nuchal rigidity Respiratory: Nl effort/Exclusion Other Respiratory comments:: Diffusely decreased breath sounds Cardio Vascular: RRR, No murmur, gallop, rubs, NL S1 S2 GI: No organomegaly, Normal BS's, Nondistended, No mass/bruits, No McBurney tenderness Other GI comments:: 1.5 out of 4 upper abdominal tenderness : No CVA tenderness Extremities: No edema Labs/Radiology/EKG Results - Lab Results Results: Laboratory Results - last 24 hr 11/04/16 11/04/16 11/04/16 12:37 12:37 12:41 WBC 5.6 D RBC 4.64 Hgb 13.7 Hct 42.2 MCV 90.9 MCH 29.5 MCHC Differential 32.4 RDW 12.4 Plt Count 157 MPV 8.7 Neutrophils % 62.8 Lymphocytes % 21.4 Monocytes % 9.8 Eosinophils % 5.2 H Basophils % 0.8 Sodium 136 Potassium 4.3 Chloride 106 Carbon Dioxide 28.1 Anion Gap 6.2 L BUN 14 Creatinine 1.0 Est GFR ( Amer) TNP Est GFR (Non-Af Amer) TNP BUN/Creatinine Ratio 14.0 Glucose 101 Calcium 9.6 Total Bilirubin 0.7 AST 17 ALT 13 Alkaline Phosphatase 83 Total Protein 7.0 Albumin 4.0 L Globulin 3.0 Albumin/Globulin Ratio 1.3 Lipase 14 Urine Source RANDOM Urine Color YELLOW Urine Clarity SL. CLOUDY Urine pH 6.5 Ur Specific [place] 1.025 Urine Protein NEGATIVE Urine Glucose (UA) NEGATIVE Urine Ketones NEGATIVE Urine Blood NEGATIVE Urine Nitrate NEGATIVE Urine Bilirubin NEGATIVE Urine Urobilinogen 0.2 Ur Leukocyte Esterase NEGATIVE Urine RBC NONE SEEN Urine WBC NONE SEEN Ur Epithelial Cells RARE Urine Bacteria NONE SEEN - Radiology Results Results: KUB: Some stool in colon ED Septic Shock - . Is Septic Shock (SBP<90, OR Lactate>4 mmol\L) present?: No - <6hrs of presentation: Vital Signs: Vital Signs - 8 hr 11/04/16 11/04/16 12:11 12:19 Temp 98.5 F HR 61 72 RR 16 17 BP 149/72 158/80 O2 Sat % 98 96 Reassessment (Disposition) - Reassessment Reassessment Condition:: Unchanged - Diagnosis Diagnosis:: Multiple gallstones - Patient Disposition Admitted to:: Med/Surg Spoke to:: Luis Antoine Admitting Medical Physician:: Luis Antoine Condition at Disposition:: Stable, Unchanged
[2016-11-04 12:45] LABS: % BASOPHILS 0.8 % (0.0-2.0); % EOSINOPHILS 5.2 % (0.0-5.0); % LYMPHOCYTES 21.4 % (20.0-50.0); % MONOCYTES 9.8 % (2.0-10.0); % NEUTROPHILS 62.8 % (40.0-80.0); HEMATOCRIT 42.2 % (39.0-49.0); HEMOGLOBIN 13.7 gm/dL (12.6-17.4); MEAN CELL VOLUME 90.9 fl (80-99); MEAN CORPUSCULAR HEMOGLOBIN 29.5 pg (27.0-31.0); MEAN CORPUSCULAR HGB CONC 32.4 pg (28.0-36.0); MEAN PLATELET VOLUME 8.7 fl; NEUTROPHILE ABSOLUTE 3.6 Th/cmm (1.8-8.0); PLATELET COUNT 157 Th/cmm (150-400); RED BLOOD COUNT 4.64 Mil/cmm (3.80-5.80); RED CELL DISTRIBUTION WIDTH 12.4 % (11.5-20.0)
[2016-11-04 12:46] LABS: WHITE BLOOD COUNT 5.6 Th/cmm (4.8-10.8)
[2016-11-04 12:50] LABS: URINE BILIRUBIN NEGATIVE (NEGATIVE); URINE COLOR YELLOW; URINE GLUCOSE (UA) NEGATIVE (NEGATIVE); URINE KETONE NEGATIVE (NEGATIVE)
[2016-11-04 12:51] LABS: URINE BLOOD NEGATIVE (NEGATIVE); URINE PH 6.5; URINE PROTEIN NEGATIVE (NEGATIVE); URINE UROBILINOGEN 0.2 E.U./dL (0.2 - 1.0)
[2016-11-04 12:55] LABS: URINE BACTERIA NONE SEEN /hpf (NONE SEEN); URINE EPITHELIAL CELLS RARE /lpf (FEW); URINE RBC NONE SEEN /hpf (0-5); URINE WBC NONE SEEN /hpf (0-5)
[2016-11-04 13:02] LABS: ALB/GLOB RATIO 1.3 (1.0-1.8); ALKALINE PHOSPHATASE 83 U/L (34-104); ANION GAP 6.2 (7.0-16.0); BILIRUBIN,TOTAL 0.7 mg/dL (0.3-1.0); BUN - UREA NITROGEN 14 mg/dL (7-25); CALCIUM SERUM 9.6 mg/dL (8.6-10.3); CARBON DIOXIDE 28.1 mEq/L (21.0-31.0); CHLORIDE 106 mEq/L (98-107); GLUCOSE 101 mg/dL (70-105); LIPASE 14 U/L (11-82); POTASSIUM SERUM 4.3 mEq/L (3.5-5.1); SGOT 17 U/L (13-39); SGPT/ALT 13 U/L (7-52); SODIUM SERUM 136 mEq/L (136-145)
--- NOTE | 2016-11-04 13:18 | Diagnostic Imaging Report ---
KUB single view HISTORY: Abdominal pain., Constipation COMPARISON: None FINDINGS: Generalized gas-filled loops of bowel are seen with mild distal fecal impaction. Degenerative changes spine are noted. IMPRESSION: Generalized gas-filled loops of bowel with mild distal fecal infection.
[2016-11-04] MEDS ORDERED: Ipratropium Neb 0.5 mg/2.5 mL UD HHN PRN (17:07)
[2016-11-04] MEDS ORDERED: Maalox 30 mL Cup PO PRN (17:07)
[2016-11-04] MEDS ORDERED: Albuterol Nebulizer 2.5mg/3mL HHN PRN (17:07)
[2016-11-04] MEDS ORDERED: guaiFENesin 200 MG/10 ML UDC PO PRN (17:07)
--- NOTE | 2016-11-04 19:02 | History and Physical ---
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: Report: No Pertinent Hx GI: Report: Constipation, Gastritis, Other (colon ca) Psych: Report: Anxiety Musculoskeletal: Report: No Pertinent Hx Infectious Disease: Report: No Pertinent Hx Renal/: Report: No Pertinent Hx Endocrine: Report: No Pertinent Hx Dermatology: Report: No Pertinent Hx - Past Surgical History Past Surgical History: Other (colon resection) Family Medical History - Family Member Mother History Unknown: Yes Ethnicity: Non- Living Status: Still Living Hx Family Cancer: No Hx Family Coronary Artery Disease: No Hx Family Congestive Heart Failure: No Hx Family Hypertension: No Hx Family Stroke: No Hx Family Diabetes: No Hx Family Seizures: No Hx Family Dementia: No Hx Family AIDS: No Hx Family HIV: No Hx Family COPD: No Hx Family Hepatitis: No Hx Family Psychiatric Problems: No Hx Family Tuberculosis: No Social History Smoke: No Alcohol: None Drugs: None Lives: Friends Domestic Violence: Negative - Medications Home Medications: Home Medication Medication Instructions Recorded Type Zolpidem Tartrate [Ambienpak] 10 mg PO HS PRN 10/24/16 History - Allergies Allergies/Adverse Reactions: Allergies Allergy/AdvReac Type Severity Reaction Status Date / Time No Known Allergies Allergy Verified 11/04/16 12:16 Review of Systems - Review of Systems Constitutional: Report: Weakness Eyes: Report: No Significant ENT: Report: No Significant Respiratory: Report: No Significant Cardiovascular: Report: Light Headedness Gastrointestinal: Report: Nausea, Abdominal Pain, Constipation Genitourinary: Report: No Significant Musculoskeletal: Report: No Significant Skin: Report: No Significant Neurological: Report: Weakness, Incoordination Physical Exam - Physical Exam HEENT: Report: Ears Nose Throat within normal limits Neck: Report: Within normal limits Cardiovascular Systems: Report: +s1/s2 noted, Regular, Rate and Rhythm, no murmurs noted Respiratory: Report: Breath Sounds are within normal limits Abdomen: Report: Non-tender to palpation, Bowel Sounds are within normal limits Back: Report: Inspection of back is within normal limits. Extremities: Report: Non-tender to palpation., Patient had full range of motion , No pedal edema was noted on inspection Skin: Report: Color of skin is within normal limits Neuro/Psych: Report: A+Ox3, Depressed affect, No new focal deficits - Lab Results All Lab Results last 24 hours: Laboratory Last Values WBC 5.6 Th/cmm (4.8-10.8) D 11/04/16 12:37 RBC 4.64 Mil/cmm (3.80-5.80) 11/04/16 12:37 Hgb 13.7 gm/dL (12.6-17.4) 11/04/16 12:37 Hct 42.2 % (39.0-49.0) 11/04/16 12:37 MCV 90.9 fl (80-99) 11/04/16 12:37 MCH 29.5 pg (27.0-31.0) 11/04/16 12:37 MCHC Differential 32.4 pg (28.0-36.0) 11/04/16 12:37 RDW 12.4 % (11.5-20.0) 11/04/16 12:37 Plt Count 157 Th/cmm (150-400) 11/04/16 12:37 MPV 8.7 fl 11/04/16 12:37 Neutrophils % 62.8 % (40.0-80.0) 11/04/16 12:37 Lymphocytes % 21.4 % (20.0-50.0) 11/04/16 12:37 Monocytes % 9.8 % (2.0-10.0) 11/04/16 12:37 Eosinophils % 5.2 % (0.0-5.0) H 11/04/16 12:37 Basophils % 0.8 % (0.0-2.0) 11/04/16 12:37 Sodium 136 mEq/L (136-145) 11/04/16 12:37 Potassium 4.3 mEq/L (3.5-5.1) 11/04/16 12:37 Chloride 106 mEq/L (98-107) 11/04/16 12:37 Carbon Dioxide 28.1 mEq/L (21.0-31.0) 11/04/16 12:37 Anion Gap 6.2 (7.0-16.0) L 11/04/16 12:37 BUN 14 mg/dL (7-25) 11/04/16 12:37 Creatinine 1.0 mg/dL (0.7-1.3) 11/04/16 12:37 Est GFR ( Amer) TNP 11/04/16 12:37 Est GFR (Non-Af Amer) TNP 11/04/16 12:37 BUN/Creatinine Ratio 14.0 11/04/16 12:37 Glucose 101 mg/dL (70-105) 11/04/16 12:37 Calcium 9.6 mg/dL (8.6-10.3) 11/04/16 12:37 Total Bilirubin 0.7 mg/dL (0.3-1.0) 11/04/16 12:37 AST 17 U/L (13-39) 11/04/16 12:37 ALT 13 U/L (7-52) 11/04/16 12:37 Alkaline Phosphatase 83 U/L (34-104) 11/04/16 12:37 Total Protein 7.0 gm/dL (6.0-8.3) 11/04/16 12:37 Albumin 4.0 gm/dL (4.2-5.5) L 11/04/16 12:37 Globulin 3.0 gm/dL 11/04/16 12:37 Albumin/Globulin Ratio 1.3 (1.0-1.8) 11/04/16 12:37 Lipase 14 U/L (11-82) 11/04/16 12:37 Urine Source RANDOM 11/04/16 12:41 Urine Color YELLOW 11/04/16 12:41 Urine Clarity SL. CLOUDY (CLEAR) 11/04/16 12:41 Urine pH 6.5 11/04/16 12:41 Ur Specific [place] 1.025 (1.005-1.030) 11/04/16 12:41 Urine Protein NEGATIVE mg/dL (NEGATIVE) 11/04/16 12:41 Urine Glucose (UA) NEGATIVE mg/dL (NEGATIVE) 11/04/16 12:41 Urine Ketones NEGATIVE mg/dL (NEGATIVE) 11/04/16 12:41 Urine Blood NEGATIVE (NEGATIVE) 11/04/16 12:41 Urine Nitrate NEGATIVE (NEGATIVE) 11/04/16 12:41 Urine Bilirubin NEGATIVE (NEGATIVE) 11/04/16 12:41 Urine Urobilinogen 0.2 E.U./dL (0.2 - 1.0) 11/04/16 12:41 Ur Leukocyte Esterase NEGATIVE (NEGATIVE) 11/04/16 12:41 Urine RBC NONE SEEN /hpf (0-5) 11/04/16 12:41 Urine WBC NONE SEEN /hpf (0-5) 11/04/16 12:41 Ur Epithelial Cells RARE /lpf (FEW) 11/04/16 12:41 Urine Bacteria NONE SEEN /hpf (NONE SEEN) 11/04/16 12:41 - Assessment Assessment: abd pain generalized weakness cholelithiasis htn low albumin anxiety insomnia - Plan Plan: cont on iv abx will refer to surgery for possible lap migel ppi pain control briana rn and dr hughes
[2016-11-04] MEDS: D5-0.9%NS 1,000 ML IV SCH (21:33)
[2016-11-04 22:40] VITALS: BP 140/73
[2016-11-05] MEDS: D5-0.9%NS 1,000 ML IV SCH ×2 (06:15→20:42)
[2016-11-05 06:32] LABS: INR 1.06 (0.5-1.4)
--- NOTE | 2016-11-05 09:03 | Consultation ---
Consult Note - Consult Note Service Date: 11/05/16 Consult Note: PHYSICIAN Consultation Note: Date of Admission: 11/04/16 Purpose of Consultation: Chief Complaint: History of Present Illness: Patient LILIANA ALONSO was admitted to [facility] I with CHOLECYSTITIS. Past Medical History: Diagnoses ANXIETY DISORDER, UNSPECIFIED (11/04/16) INSOMNIA, UNSPECIFIED (11/04/16) ESSENTIAL (PRIMARY) HYPERTENSION (11/04/16) CONSTIPATION, UNSPECIFIED (11/04/16) CALCULUS OF GALLBLADDER W/O CHOLECYSTITIS W/O OBSTRUCTION (11/04/16) UNSPECIFIED ABDOMINAL PAIN (11/04/16) PERSONAL HISTORY OF MALIGNANT NEOPLASM OF LARGE INTESTINE (11/04/16) PERSONAL HISTORY OF NICOTINE DEPENDENCE (11/04/16) ACQUIRED ABSENCE OF OTHER SPECIFIED PARTS OF DIGESTIVE TRACT (11/04/16) Allergies Allergy/AdvReac Type Severity Reaction Status Date / Time No Known Allergies Allergy Verified 11/04/16 12:16 Vital Signs Temp 98.4 F 11/05/16 04:00 Pulse 59 11/05/16 04:00 Resp 19 11/05/16 04:00 BP 140/64 11/05/16 04:00 Pulse Ox 98 11/05/16 04:00 Intake & Output 11/04/16 11/05/16 11/05/16 18:59 06:59 18:59 Intake Total 990 Balance 990 Weight (lbs) 66.678 kg Intake: Intake, IV Amount 870 D5-0.9%Ns 1,000 ml @ 100 870 mls/hr IV .Q10H ALYSA Rx#: [id number] Oral 120 Other: # Voids 2 Laboratory Results - last 24 hr 11/05/16 11/05/16 05:55 05:55 PT 11.0 INR 1.06 PTT (Actin FS) 27.9 Ammonia 43 Home Medication Medication Instructions Recorded Type Zolpidem Tartrate [Ambienpak] 10 mg PO HS PRN 10/24/16 History Current Medications Generic Name Dose Route Start Last Admin Trade Name Freq PRN Reason Stop Dose Admin Acetaminophen 650 mg 11/04/16 17:07 Tylenol PO 01/03/17 17:06 Q4H PRN Pain Or Fever above 101 Al Hydrox/Mg Hydrox/Simethicone 30 ml 11/04/16 17:07 Maalox PO 01/03/17 17:06 Q6H PRN Dyspepsia Albuterol Sulfate 2.5 mg 11/04/16 17:07 Albuterol 2.5mg/3ml Neb Ud HHN 01/03/17 17:06 Q2HRT PRN Shortness of Breath or Wheeze Guaifenesin 200 mg 11/04/16 17:07 Robitussin PO 01/03/17 17:06 Q4HR PRN Cough or Congestion Dextrose/Sodium Chloride 1,000 mls @ 100 mls/hr 11/04/16 17:15 11/05/16 06:15 D5-0.9%Ns IV 01/03/17 17:14 100 mls/hr .Q10H ALYSA Administration Ipratropium [place] 0.5 mg 11/04/16 17:07 Atrovent Neb 0.5mg/2.5ml N 01/03/17 17:06 Q2HRT PRN Shortness of Breath or Wheeze Meclizine HCl 25 mg 11/04/16 17:07 Antivert PO 01/03/17 17:06 DAILY PRN Nausea / Vomiting Morphine Sulfate 2 mg 11/04/16 17:07 Morphine IVP 01/03/17 17:06 Q4H PRN Pain (Severe) Ondansetron HCl 4 mg 11/04/16 17:07 Zofran IV 01/03/17 17:06 Q8H PRN Nausea / Vomiting Pantoprazole Sodium 40 mg 11/05/16 09:00 Protonix IVP 01/04/17 08:59 BID ALYSA Review of Systems: A 12 point ROS was reviewed with the pertinent positive and negatives noted in the HPI. Social History Smoking Status Former smoker Drug Use No Alcohol Use Yes: OCCASSIONAL Family Medical History Family Medical History Start: 11/04/16 18: 35 Freq: ONCE Status: Active Document 11/04/16 22:08 BRIANNE (Rec: 11/04/16 22:08 BRIANNE [id number]) Family Medical History Mother History Unknown Yes Physical Exam: General: HEENT: Cardio: Respiratory: Abdominal: scars from previous colon resection for CA, large prostate Genital/Urinary: Extremities: Neurological: Assessment: epigastric discomfort for 3 months, denies nausea and vomiting, diagnosed with GB stones on previous ER visit 10 days ago Plan: HIDA scan, might need open cholecystectomy, and repair of hernias at same time. Discussed with patient and brother Signed, Camelia Orosco [id number]
--- NOTE | 2016-11-05 09:29 | Diagnostic Imaging Report ---
CHEST X-RAY: AP view INDICATION: pain COMPARISON: None FINDINGS: No focal consolidation or pleural effusions. Right basal subsegmental atelectasis versus scarring is noted. Borderline cardiomegaly is noted. The osseous structures are intact. IMPRESSION: Chronic lung changes and possible COPD. Right basal subsegmental atelectasis versus scarring. No focal consolidation identified.
[2016-11-05 10:19] LABS: TSH 1.42 uIU/ml (0.34-5.60)
[2016-11-05] MEDS: Morphine Sulfate 2 mg/mL 1mL Syr IVP PRN (11:43)
--- NOTE | 2016-11-05 15:02 | Diagnostic Imaging Report ---
Exam HIDA scan HISTORY cholecystitis gallstones Utilizing 5.1 mCi of technetium 99 M mebrofenin examination of liver and biliary tree was obtained. The study demonstrates normal uptake of the radiopharmaceutical throughout the liver parenchyma with visualization of common bile duct at 5 minutes. The 15 minutes there is evidence for opacification of the bowel Delayed the 60 minutes examination demonstrates lack of the visualization of gallbladder. Upon the administration of morphine there is evidence for gallbladder at 90 minutes interval. IMPRESSION: 1:delayed visualization of the gallbladder at 90 minutes with administration morphine most likely represent chronic gallbladder disease, chronic cholecystitis cannot excluded.
--- NOTE | 2016-11-05 15:19 | Internal Medicine Prog Note ---
Internal Medicine Subjective - Subjective Service Date: 11/05/16 Patient seen and examined:: with staff Patient is:: awake Patient Complaints of:: other (ABDOMINAL PAIN) Per staff patient has:: tolerating meds Internal Medicine Objective - Results Result Diagrams: 11/04/16 12:37 11/04/16 12:37 Recent Labs: Laboratory Last Values WBC 5.6 Th/cmm (4.8-10.8) D 11/04/16 12:37 RBC 4.64 Mil/cmm (3.80-5.80) 11/04/16 12:37 Hgb 13.7 gm/dL (12.6-17.4) 11/04/16 12:37 Hct 42.2 % (39.0-49.0) 11/04/16 12:37 MCV 90.9 fl (80-99) 11/04/16 12:37 MCH 29.5 pg (27.0-31.0) 11/04/16 12:37 MCHC Differential 32.4 pg (28.0-36.0) 11/04/16 12:37 RDW 12.4 % (11.5-20.0) 11/04/16 12:37 Plt Count 157 Th/cmm (150-400) 11/04/16 12:37 MPV 8.7 fl 11/04/16 12:37 Neutrophils % 62.8 % (40.0-80.0) 11/04/16 12:37 Lymphocytes % 21.4 % (20.0-50.0) 11/04/16 12:37 Monocytes % 9.8 % (2.0-10.0) 11/04/16 12:37 Eosinophils % 5.2 % (0.0-5.0) H 11/04/16 12:37 Basophils % 0.8 % (0.0-2.0) 11/04/16 12:37 PT 11.0 SECONDS (9.5-11.5) 11/05/16 05:55 INR 1.06 (0.5-1.4) 11/05/16 05:55 PTT (Actin FS) 27.9 SECONDS (26.0-38.0) 11/05/16 05:55 Sodium 136 mEq/L (136-145) 11/04/16 12:37 Potassium 4.3 mEq/L (3.5-5.1) 11/04/16 12:37 Chloride 106 mEq/L (98-107) 11/04/16 12:37 Carbon Dioxide 28.1 mEq/L (21.0-31.0) 11/04/16 12:37 Anion Gap 6.2 (7.0-16.0) L 11/04/16 12:37 BUN 14 mg/dL (7-25) 11/04/16 12:37 Creatinine 1.0 mg/dL (0.7-1.3) 11/04/16 12:37 Est GFR ( Amer) TNP 11/04/16 12:37 Est GFR (Non-Af Amer) TNP 11/04/16 12:37 BUN/Creatinine Ratio 14.0 11/04/16 12:37 Glucose 101 mg/dL (70-105) 11/04/16 12:37 Calcium 9.6 mg/dL (8.6-10.3) 11/04/16 12:37 Total Bilirubin 0.7 mg/dL (0.3-1.0) 11/04/16 12:37 AST 17 U/L (13-39) 11/04/16 12:37 ALT 13 U/L (7-52) 11/04/16 12:37 Alkaline Phosphatase 83 U/L (34-104) 11/04/16 12:37 Ammonia 43 umol/L (16-53) 11/05/16 05:55 Total Protein 7.0 gm/dL (6.0-8.3) 11/04/16 12:37 Albumin 4.0 gm/dL (4.2-5.5) L 11/04/16 12:37 Globulin 3.0 gm/dL 11/04/16 12:37 Albumin/Globulin Ratio 1.3 (1.0-1.8) 11/04/16 12:37 Lipase 14 U/L (11-82) 11/04/16 12:37 TSH 1.42 uIU/ml (0.34-5.60) 11/05/16 05:55 Urine Source RANDOM 11/04/16 12:41 Urine Color YELLOW 11/04/16 12:41 Urine Clarity SL. CLOUDY (CLEAR) 11/04/16 12:41 Urine pH 6.5 11/04/16 12:41 Ur Specific [place] 1.025 (1.005-1.030) 11/04/16 12:41 Urine Protein NEGATIVE mg/dL (NEGATIVE) 11/04/16 12:41 Urine Glucose (UA) NEGATIVE mg/dL (NEGATIVE) 11/04/16 12:41 Urine Ketones NEGATIVE mg/dL (NEGATIVE) 11/04/16 12:41 Urine Blood NEGATIVE (NEGATIVE) 11/04/16 12:41 Urine Nitrate NEGATIVE (NEGATIVE) 11/04/16 12:41 Urine Bilirubin NEGATIVE (NEGATIVE) 11/04/16 12:41 Urine Urobilinogen 0.2 E.U./dL (0.2 - 1.0) 11/04/16 12:41 Ur Leukocyte Esterase NEGATIVE (NEGATIVE) 11/04/16 12:41 Urine RBC NONE SEEN /hpf (0-5) 11/04/16 12:41 Urine WBC NONE SEEN /hpf (0-5) 11/04/16 12:41 Ur Epithelial Cells RARE /lpf (FEW) 11/04/16 12:41 Urine Bacteria NONE SEEN /hpf (NONE SEEN) 11/04/16 12:41 - Physical Exam Vitals and I&O: Vital Signs Temp 98.7 F 11/05/16 08:00 Pulse 47 11/05/16 08:00 Resp 21 11/05/16 08:00 BP 140/68 11/05/16 08:00 Pulse Ox 96 11/05/16 08:00 Intake & Output 11/04/16 11/05/16 11/05/16 18:59 06:59 18:59 Intake Total 990 Balance 990 Weight (lbs) 147 lb 147 lb Intake: Intake, IV Amount 870 D5-0.9%Ns 1,000 ml @ 100 870 mls/hr IV .Q10H ALYSA Rx#: [id number] Oral 120 Other: # Voids 2 Active Medications: Current Medications Acetaminophen (Tylenol) 650 mg PO Q4H PRN PRN Reason: Pain Or Fever above 101 Stop: 01/03/17 17:06 Al Hydrox/Mg Hydrox/Simethicone (Maalox) 30 ml PO Q6H PRN PRN Reason: Dyspepsia Stop: 01/03/17 17:06 Albuterol Sulfate (Albuterol 2.5mg/3ml Neb Ud) 2.5 mg HHN Q2HRT PRN PRN Reason: Shortness of Breath or Wheeze Stop: 01/03/17 17:06 Guaifenesin (Robitussin) 200 mg PO Q4HR PRN PRN Reason: Cough or Congestion Stop: 01/03/17 17:06 Dextrose/Sodium Chloride (D5-0.9%Ns) 1,000 mls @ 100 mls/hr IV .Q10H [facility] Stop: 01/03/17 17:14 Last Admin: 11/05/16 06:15 Dose: 100 mls/hr Ipratropium [place] (Atrovent Neb 0.5mg/2.5ml) 0.5 mg HHN Q2HRT PRN PRN Reason: Shortness of Breath or Wheeze Stop: 01/03/17 17:06 Meclizine HCl (Antivert) 25 mg PO DAILY PRN PRN Reason: Nausea / Vomiting Stop: 01/03/17 17:06 Morphine Sulfate (Morphine) 2 mg IVP Q4H PRN PRN Reason: Pain (Severe) Stop: 01/03/17 17:06 Last Admin: 11/05/16 11:43 Dose: 2 mg Ondansetron HCl (Zofran) 4 mg IV Q8H PRN PRN Reason: Nausea / Vomiting Stop: 01/03/17 17:06 Pantoprazole Sodium (Protonix) 40 mg IVP BID [facility] Stop: 01/04/17 08:59 Last Admin: 11/05/16 11:45 Dose: 40 mg General: alert HEENT: NC/AT, PERRLA Neck: Supple Cardiovascular: RRR, Normal S1, Normal S2 Abdomen: soft, non-tender, non-distended Extremities: excoriation Neurological: no change - Procedures Procedures: Procedures Procedure Code Date EMERGENCY DEPT VISIT 62475 06/14/11 INSERT INDWELLING CATH 57.94 06/14/11 INSERT TEMP BLADDER CATH 72004 06/14/11 Internal Medicine Assmt/Plan - Assessment Assessment: abd pain generalized weakness cholelithiasis htn low albumin anxiety insomnia FECAL IMPACTION - Plan Plan: hida scan am labs laxatives ivf for hydration iv antibiotics
[2016-11-05] MEDS ORDERED: Magnesium Hydroxide (MOM) 30 mL UDC PO PRN (15:20)
[2016-11-05] MEDS ORDERED: VTE Chemical Prophylaxis Screen/Admission MC PRN (17:00)
--- NOTE | 2016-11-05 21:10 | Consultation ---
DATE OF CONSULTATION: 11/05/2016 The patient was seen, chart reviewed, discussed with staff. HISTORY OF PRESENT ILLNESS: The patient is a 71-year-old male who was admitted to the hospital status post colon resection, has vague discomfort, abdominal pain. The patient has a history of anxiety, depression, taking medications. Reports some helplessness and uselessness, lack of energy and poor motivation, but no suicidal thoughts. The patient said he took Paxil in the past, not sure if it helped him much, also took Zyprexa, which helped him sleep better. PAST PSYCHIATRIC HISTORY: Outpatient treatment in the past. PAST MEDICAL HISTORY: As per Dr. Antoine. PSYCHOSOCIAL HISTORY: The patient is single, lives in [place] with his brother, who was present during interview. Brother is supportive. The patient denied alcohol use. MENTAL STATUS EXAMINATION: Speech is monotonous, low tone. Affect is superficial, depressed. Thought process concrete. The patient has slight paranoia, but no other hallucinations. He is oriented x 3. ASSESSMENT: MDD . PLAN: We will use Zoloft 25 mg daily and Zyprexa 2.5 mg p.o. at bedtime. Discussed side effects in detail. Consider inpatient psychiatric hospitalization. We will monitor closely. Thank you for the consultation. JOB# [id number]
[2016-11-06] MEDS: D5-0.9%NS 1,000 ML IV SCH ×2 (05:09→16:20)
[2016-11-06 06:09] LABS: % EOSINOPHILS 5.4 % (0.0-5.0); % LYMPHOCYTES 23.3 % (20.0-50.0); % MONOCYTES 10.5 % (2.0-10.0); % NEUTROPHILS 60.8 % (40.0-80.0); HEMOGLOBIN 13.9 gm/dL (12.6-17.4); MEAN CELL VOLUME 90.6 fl (80-99); MEAN CORPUSCULAR HGB CONC 33.1 pg (28.0-36.0); MEAN PLATELET VOLUME 9.1 fl; NEUTROPHILE ABSOLUTE 3.7 Th/cmm (1.8-8.0); PLATELET COUNT 156 Th/cmm (150-400); RED BLOOD COUNT 4.64 Mil/cmm (3.80-5.80); RED CELL DISTRIBUTION WIDTH 12.5 % (11.5-20.0)
[2016-11-06 06:30] LABS: ANION GAP 5.4 (7.0-16.0); BUN - UREA NITROGEN 7 mg/dL (7-25); BUN/CREATININE RATIO 7.8; CARBON DIOXIDE 29.5 mEq/L (21.0-31.0); CHLORIDE 106 mEq/L (98-107); CREATININE - SERUM 0.9 mg/dL (0.7-1.3); GLUCOSE 106 mg/dL (70-105); POTASSIUM SERUM 3.9 mEq/L (3.5-5.1); SODIUM SERUM 137 mEq/L (136-145)
--- NOTE | 2016-11-06 09:42 | General Progress Note ---
Subjective - Review of Systems Service Date: 11/06/16 Events since last encounter: RADHAA delayed visualization. discussed informed consent with patient and brother recommendation: open cholecystectomy with repair of incisional hernias Objective - Results Result Diagrams: 11/06/16 05:44 11/06/16 05:44 Recent Labs: Laboratory Last Values WBC 6.0 Th/cmm (4.8-10.8) 11/06/16 05:44 RBC 4.64 Mil/cmm (3.80-5.80) 11/06/16 05:44 Hgb 13.9 gm/dL (12.6-17.4) 11/06/16 05:44 Hct 42.0 % (39.0-49.0) 11/06/16 05:44 MCV 90.6 fl (80-99) 11/06/16 05:44 MCH 30.0 pg (27.0-31.0) 11/06/16 05:44 MCHC Differential 33.1 pg (28.0-36.0) 11/06/16 05:44 RDW 12.5 % (11.5-20.0) 11/06/16 05:44 Plt Count 156 Th/cmm (150-400) 11/06/16 05:44 MPV 9.1 fl 11/06/16 05:44 Neutrophils % 60.8 % (40.0-80.0) 11/06/16 05:44 Lymphocytes % 23.3 % (20.0-50.0) 11/06/16 05:44 Monocytes % 10.5 % (2.0-10.0) H 11/06/16 05:44 Eosinophils % 5.4 % (0.0-5.0) H 11/06/16 05:44 Basophils % 0.0 % (0.0-2.0) 11/06/16 05:44 PT 11.0 SECONDS (9.5-11.5) 11/05/16 05:55 INR 1.06 (0.5-1.4) 11/05/16 05:55 PTT (Actin FS) 27.9 SECONDS (26.0-38.0) 11/05/16 05:55 Sodium 137 mEq/L (136-145) 11/06/16 05:44 Potassium 3.9 mEq/L (3.5-5.1) 11/06/16 05:44 Chloride 106 mEq/L (98-107) 11/06/16 05:44 Carbon Dioxide 29.5 mEq/L (21.0-31.0) 11/06/16 05:44 Anion Gap 5.4 (7.0-16.0) L 11/06/16 05:44 BUN 7 mg/dL (7-25) 11/06/16 05:44 Creatinine 0.9 mg/dL (0.7-1.3) 11/06/16 05:44 Est GFR ( Amer) TNP 11/06/16 05:44 Est GFR (Non-Af Amer) TN 11/06/16 05:44 BUN/Creatinine Ratio 7.8 11/06/16 05:44 Glucose 106 mg/dL (70-105) H 11/06/16 05:44 Calcium 9.0 mg/dL (8.6-10.3) 11/06/16 05:44 Total Bilirubin 0.7 mg/dL (0.3-1.0) 11/04/16 12:37 AST 17 U/L (13-39) 11/04/16 12:37 ALT 13 U/L (7-52) 11/04/16 12:37 Alkaline Phosphatase 83 U/L (34-104) 11/04/16 12:37 Ammonia 43 umol/L (16-53) 11/05/16 05:55 Total Protein 7.0 gm/dL (6.0-8.3) 11/04/16 12:37 Albumin 4.0 gm/dL (4.2-5.5) L 11/04/16 12:37 Globulin 3.0 gm/dL 11/04/16 12:37 Albumin/Globulin Ratio 1.3 (1.0-1.8) 11/04/16 12:37 Lipase 14 U/L (11-82) 11/04/16 12:37 TSH 1.42 uIU/ml (0.34-5.60) 11/05/16 05:55 Urine Source RANDOM 11/04/16 12:41 Urine Color YELLOW 11/04/16 12:41 Urine Clarity SL. CLOUDY (CLEAR) 11/04/16 12:41 Urine pH 6.5 11/04/16 12:41 Ur Specific [place] 1.025 (1.005-1.030) 11/04/16 12:41 Urine Protein NEGATIVE mg/dL (NEGATIVE) 11/04/16 12:41 Urine Glucose (UA) NEGATIVE mg/dL (NEGATIVE) 11/04/16 12:41 Urine Ketones NEGATIVE mg/dL (NEGATIVE) 11/04/16 12:41 Urine Blood NEGATIVE (NEGATIVE) 11/04/16 12:41 Urine Nitrate NEGATIVE (NEGATIVE) 11/04/16 12:41 Urine Bilirubin NEGATIVE (NEGATIVE) 11/04/16 12:41 Urine Urobilinogen 0.2 E.U./dL (0.2 - 1.0) 11/04/16 12:41 Ur Leukocyte Esterase NEGATIVE (NEGATIVE) 11/04/16 12:41 Urine RBC NONE SEEN /hpf (0-5) 11/04/16 12:41 Urine WBC NONE SEEN /hpf (0-5) 11/04/16 12:41 Ur Epithelial Cells RARE /lpf (FEW) 11/04/16 12:41 Urine Bacteria NONE SEEN /hpf (NONE SEEN) 11/04/16 12:41 - Physical Exam Vitals and I&O: Vital Signs Temp 97.4 F 11/06/16 08:49 Pulse 45 11/06/16 08:49 Resp 18 11/06/16 08:49 BP 141/67 11/06/16 08:49 Pulse Ox 99 11/06/16 08:49 Intake & Output 11/05/16 11/06/16 11/06/16 18:59 06:59 18:59 Intake Total 1000 1445 Balance 1000 1445 Weight (lbs) 66.678 kg 66.678 kg Intake: Intake, IV Amount 1000 845 D5-0.9%Ns 1,000 ml @ 100 1000 845 mls/hr IV .Q10H ALYSA Rx#: [id number] Oral 600 Other: # Voids 3 # Bowel Movements 0 Active Medications: Current Medications Acetaminophen (Tylenol) 650 mg PO Q4H PRN PRN Reason: Pain Or Fever above 101 Stop: 01/03/17 17:06 Al Hydrox/Mg Hydrox/Simethicone (Maalox) 30 ml PO Q6H PRN PRN Reason: Dyspepsia Stop: 01/03/17 17:06 Albuterol Sulfate (Albuterol 2.5mg/3ml Neb Ud) 2.5 mg HHN Q2HRT PRN PRN Reason: Shortness of Breath or Wheeze Stop: 01/03/17 17:06 Bisacodyl (Dulcolax 10 Mg Supp) 10 mg RC DAILY PRN PRN Reason: Constipation IF MOM INEFFECTIV Stop: 01/04/17 15:19 Guaifenesin (Robitussin) 200 mg PO Q4HR PRN PRN Reason: Cough or Congestion Stop: 01/03/17 17:06 Heparin Sodium (Porcine) (Heparin) 5,000 units SUBQ Q12H ALYSA Stop: 01/04/17 20:59 Last Admin: 11/06/16 09:15 Dose: 5,000 units Dextrose/Sodium Chloride (D5-0.9%Ns) 1,000 mls @ 100 mls/hr IV .Q10H ALYSA Stop: 01/03/17 17:14 Last Admin: 11/06/16 05:09 Dose: 100 mls/hr Ipratropium [place] (Atrovent Neb 0.5mg/2.5ml) 0.5 mg HHN Q2HRT PRN PRN Reason: Shortness of Breath or Wheeze Stop: 01/03/17 17:06 Magnesium Hydroxide (Milk Of Magnesia) 30 ml PO HS PRN PRN Reason: Constipation Stop: 01/04/17 15:19 Last Admin: 11/05/16 20:42 Dose: 30 ml Meclizine HCl (Antivert) 25 mg PO DAILY PRN PRN Reason: Nausea / Vomiting Stop: 01/03/17 17:06 Miscellaneous (Vte Chemical Prophylaxis Screen/ Admission) 1 ea MC PRN PRN PRN Reason: PROTOCOL Stop: 01/04/17 16:59 Morphine Sulfate (Morphine) 2 mg IVP Q4H PRN PRN Reason: Pain (Severe) Stop: 01/03/17 17:06 Last Admin: 11/05/16 11:43 Dose: 2 mg Olanzapine (Zyprexa) 2.5 mg PO HS ALYSA PRN Reason: Protocol Stop: 01/04/17 20:59 Ondansetron HCl (Zofran) 4 mg IV Q8H PRN PRN Reason: Nausea / Vomiting Stop: 01/03/17 17:06 Pantoprazole Sodium (Protonix) 40 mg IVP BID ALYSA Stop: 01/04/17 08:59 Last Admin: 11/05/16 17:34 Dose: 40 mg Sertraline HCl (Zoloft) 25 mg PO DAILY ALYSA PRN Reason: Protocol Stop: 01/05/17 08:59 Last Admin: 11/06/16 09:14 Dose: 25 mg - Procedures Procedures: Procedures Procedure Code Date EMERGENCY DEPT VISIT 07014 06/14/11 INSERT INDWELLING CATH 57.94 06/14/11 INSERT TEMP BLADDER CATH 77504 06/14/11 Assessment/Plan - Problem List Patient Problems: All Active Problems EPIGASTRIC AND LOWER CHEST TIGHTNESS (Acute) URINARY RETENTION AND DISCONTINUATION FOLEYY (Acute) URINARY RETENTION WITH BLEEDING (Acute)
[2016-11-06 10:17] LABS: AFP TUMOR MARKER 7.6 ng/mL (0.0-8.3); CARCINOEMBRYONIC ANTIGEN 1.8 ng/mL (0.0-4.7)
[2016-11-06 12:11] LABS: FOLIC ACID >20.0 ng/mL (>3.0)
--- NOTE | 2016-11-06 15:15 | Internal Medicine Prog Note ---
Internal Medicine Subjective - Subjective Patient seen and examined:: with staff, chart reviewed Patient is:: awake, verbal, interactive Patient Complaints of:: other (ABDOMINAL PAIN) Per staff patient has:: no adverse event, no episodes of fall, poor appetite, agitated, tolerating meds, other (not able to sleep) Internal Medicine Objective - Results Result Diagrams: 11/06/16 05:44 11/06/16 05:44 Recent Labs: Laboratory Last Values WBC 6.0 Th/cmm (4.8-10.8) 11/06/16 05:44 RBC 4.64 Mil/cmm (3.80-5.80) 11/06/16 05:44 Hgb 13.9 gm/dL (12.6-17.4) 11/06/16 05:44 Hct 42.0 % (39.0-49.0) 11/06/16 05:44 MCV 90.6 fl (80-99) 11/06/16 05:44 MCH 30.0 pg (27.0-31.0) 11/06/16 05:44 MCHC Differential 33.1 pg (28.0-36.0) 11/06/16 05:44 RDW 12.5 % (11.5-20.0) 11/06/16 05:44 Plt Count 156 Th/cmm (150-400) 11/06/16 05:44 MPV 9.1 fl 11/06/16 05:44 Neutrophils % 60.8 % (40.0-80.0) 11/06/16 05:44 Lymphocytes % 23.3 % (20.0-50.0) 11/06/16 05:44 Monocytes % 10.5 % (2.0-10.0) H 11/06/16 05:44 Eosinophils % 5.4 % (0.0-5.0) H 11/06/16 05:44 Basophils % 0.0 % (0.0-2.0) 11/06/16 05:44 PT 11.0 SECONDS (9.5-11.5) 11/05/16 05:55 INR 1.06 (0.5-1.4) 11/05/16 05:55 PTT (Actin FS) 27.9 SECONDS (26.0-38.0) 11/05/16 05:55 Sodium 137 mEq/L (136-145) 11/06/16 05:44 Potassium 3.9 mEq/L (3.5-5.1) 11/06/16 05:44 Chloride 106 mEq/L (98-107) 11/06/16 05:44 Carbon Dioxide 29.5 mEq/L (21.0-31.0) 11/06/16 05:44 Anion Gap 5.4 (7.0-16.0) L 11/06/16 05:44 BUN 7 mg/dL (7-25) 11/06/16 05:44 Creatinine 0.9 mg/dL (0.7-1.3) 11/06/16 05:44 Est GFR ( Amer) TNP 11/06/16 05:44 Est GFR (Non-Af Amer) TNP 11/06/16 05:44 BUN/Creatinine Ratio 7.8 11/06/16 05:44 Glucose 106 mg/dL (70-105) H 11/06/16 05:44 Calcium 9.0 mg/dL (8.6-10.3) 11/06/16 05:44 Total Bilirubin 0.7 mg/dL (0.3-1.0) 11/04/16 12:37 AST 17 U/L (13-39) 11/04/16 12:37 ALT 13 U/L (7-52) 11/04/16 12:37 Alkaline Phosphatase 83 U/L (34-104) 11/04/16 12:37 Ammonia 43 umol/L (16-53) 11/05/16 05:55 Total Protein 7.0 gm/dL (6.0-8.3) 11/04/16 12:37 Albumin 4.0 gm/dL (4.2-5.5) L 11/04/16 12:37 Globulin 3.0 gm/dL 11/04/16 12:37 Albumin/Globulin Ratio 1.3 (1.0-1.8) 11/04/16 12:37 Lipase 14 U/L (11-82) 11/04/16 12:37 Tumor Marker AFP 7.6 ng/mL (0.0-8.3) 11/05/16 05:55 Carcinoembryonic Ag 1.8 ng/mL (0.0-4.7) 11/05/16 05:55 Vitamin B12 615 pg/mL (211-946) 11/05/16 05:55 Folic Acid >20.0 ng/mL (>3.0) 11/05/16 05:55 TSH 1.42 uIU/ml (0.34-5.60) 11/05/16 05:55 Urine Source RANDOM 11/04/16 12:41 Urine Color YELLOW 11/04/16 12:41 Urine Clarity SL. CLOUDY (CLEAR) 11/04/16 12:41 Urine pH 6.5 11/04/16 12:41 Ur Specific [place] 1.025 (1.005-1.030) 11/04/16 12:41 Urine Protein NEGATIVE mg/dL (NEGATIVE) 11/04/16 12:41 Urine Glucose (UA) NEGATIVE mg/dL (NEGATIVE) 11/04/16 12:41 Urine Ketones NEGATIVE mg/dL (NEGATIVE) 11/04/16 12:41 Urine Blood NEGATIVE (NEGATIVE) 11/04/16 12:41 Urine Nitrate NEGATIVE (NEGATIVE) 11/04/16 12:41 Urine Bilirubin NEGATIVE (NEGATIVE) 11/04/16 12:41 Urine Urobilinogen 0.2 E.U./dL (0.2 - 1.0) 11/04/16 12:41 Ur Leukocyte Esterase NEGATIVE (NEGATIVE) 11/04/16 12:41 Urine RBC NONE SEEN /hpf (0-5) 11/04/16 12:41 Urine WBC NONE SEEN /hpf (0-5) 11/04/16 12:41 Ur Epithelial Cells RARE /lpf (FEW) 11/04/16 12:41 Urine Bacteria NONE SEEN /hpf (NONE SEEN) 11/04/16 12:41 - Physical Exam Vitals and I&O: Vital Signs Temp 97.7 F 11/06/16 12:06 Pulse 56 11/06/16 12:06 Resp 20 11/06/16 12:06 BP 131/73 11/06/16 12:06 Pulse Ox 99 11/06/16 12:06 Intake & Output 11/05/16 11/06/16 11/06/16 18:59 06:59 18:59 Intake Total 1000 1445 Balance 1000 1445 Weight (lbs) 66.678 kg 66.678 kg Intake: Intake, IV Amount 1000 845 D5-0.9%Ns 1,000 ml @ 100 1000 845 mls/hr IV .Q10H [facility] Rx#: [id number] Oral 600 Other: # Voids 3 # Bowel Movements 0 Active Medications: Current Medications Acetaminophen (Tylenol) 650 mg PO Q4H PRN PRN Reason: Pain Or Fever above 101 Stop: 01/03/17 17:06 Al Hydrox/Mg Hydrox/Simethicone (Maalox) 30 ml PO Q6H PRN PRN Reason: Dyspepsia Stop: 01/03/17 17:06 Albuterol Sulfate (Albuterol 2.5mg/3ml Neb Ud) 2.5 mg HHN Q2HRT PRN PRN Reason: Shortness of Breath or Wheeze Stop: 01/03/17 17:06 Bisacodyl (Dulcolax 10 Mg Supp) 10 mg RC DAILY PRN PRN Reason: Constipation IF MOM INEFFECTIV Stop: 01/04/17 15:19 Guaifenesin (Robitussin) 200 mg PO Q4HR PRN PRN Reason: Cough or Congestion Stop: 01/03/17 17:06 Heparin Sodium (Porcine) (Heparin) 5,000 units SUBQ Q12H [facility] Stop: 01/04/17 20:59 Last Admin: 11/06/16 09:15 Dose: 5,000 units Dextrose/Sodium Chloride (D5-0.9%Ns) 1,000 mls @ 100 mls/hr IV .Q10H [facility] Stop: 01/03/17 17:14 Last Admin: 11/06/16 05:09 Dose: 100 mls/hr Ipratropium [place] (Atrovent Neb 0.5mg/2.5ml) 0.5 mg HHN Q2HRT PRN PRN Reason: Shortness of Breath or Wheeze Stop: 01/03/17 17:06 Magnesium Hydroxide (Milk Of Magnesia) 30 ml PO HS PRN PRN Reason: Constipation Stop: 01/04/17 15:19 Last Admin: 11/05/16 20:42 Dose: 30 ml Meclizine HCl (Antivert) 25 mg PO DAILY PRN PRN Reason: Nausea / Vomiting Stop: 01/03/17 17:06 Miscellaneous (Vte Chemical Prophylaxis Screen/ Admission) 1 ea [facility] PRN PRN PRN Reason: PROTOCOL Stop: 01/04/17 16:59 Morphine Sulfate (Morphine) 2 mg IVP Q4H PRN PRN Reason: Pain (Severe) Stop: 01/03/17 17:06 Last Admin: 11/05/16 11:43 Dose: 2 mg Olanzapine (Zyprexa) 2.5 mg PO HS ALYSA PRN Reason: Protocol Stop: 01/04/17 20:59 Ondansetron HCl (Zofran) 4 mg IV Q8H PRN PRN Reason: Nausea / Vomiting Stop: 01/03/17 17:06 Pantoprazole Sodium (Protonix) 40 mg IVP BID [facility] Stop: 01/04/17 08:59 Last Admin: 11/06/16 10:59 Dose: Not Given Sertraline HCl (Zoloft) 25 mg PO DAILY ALYSA PRN Reason: Protocol Stop: 01/05/17 08:59 Last Admin: 11/06/16 09:14 Dose: 25 mg General: alert, appears older HEENT: NC/AT, PERRLA Neck: Supple Cardiovascular: RRR, Normal S1, Normal S2 Abdomen: soft, non-tender, non-distended Extremities: excoriation Neurological: no change - Procedures Procedures: Procedures Procedure Code Date EMERGENCY DEPT VISIT 55734 06/14/11 INSERT INDWELLING CATH 57.94 06/14/11 INSERT TEMP BLADDER CATH 13601 06/14/11 Internal Medicine Assmt/Plan - Assessment Assessment: abd pain generalized weakness cholelithiasis htn low albumin anxiety insomnia - Plan Plan: cont on iv abx will refer to surgery for possible lap migel ppi pain control briana rn and dr hughes will add restoril dw brother
[2016-11-07] MEDS: D5-0.9%NS 1,000 ML IV SCH ×2 (04:20→17:37)
--- NOTE | 2016-11-07 09:00 | General Progress Note ---
Subjective - Review of Systems Service Date: 11/07/16 Subjective: brother has signed consent for surgery - will likely need open cholecystectomy due to previous surgeries Objective - Results Result Diagrams: 11/06/16 05:44 11/06/16 05:44 Recent Labs: Laboratory Last Values WBC 6.0 Th/cmm (4.8-10.8) 11/06/16 05:44 RBC 4.64 Mil/cmm (3.80-5.80) 11/06/16 05:44 Hgb 13.9 gm/dL (12.6-17.4) 11/06/16 05:44 Hct 42.0 % (39.0-49.0) 11/06/16 05:44 MCV 90.6 fl (80-99) 11/06/16 05:44 MCH 30.0 pg (27.0-31.0) 11/06/16 05:44 MCHC Differential 33.1 pg (28.0-36.0) 11/06/16 05:44 RDW 12.5 % (11.5-20.0) 11/06/16 05:44 Plt Count 156 Th/cmm (150-400) 11/06/16 05:44 MPV 9.1 fl 11/06/16 05:44 Neutrophils % 60.8 % (40.0-80.0) 11/06/16 05:44 Lymphocytes % 23.3 % (20.0-50.0) 11/06/16 05:44 Monocytes % 10.5 % (2.0-10.0) H 11/06/16 05:44 Eosinophils % 5.4 % (0.0-5.0) H 11/06/16 05:44 Basophils % 0.0 % (0.0-2.0) 11/06/16 05:44 PT 11.0 SECONDS (9.5-11.5) 11/05/16 05:55 INR 1.06 (0.5-1.4) 11/05/16 05:55 PTT (Actin FS) 27.9 SECONDS (26.0-38.0) 11/05/16 05:55 Sodium 137 mEq/L (136-145) 11/06/16 05:44 Potassium 3.9 mEq/L (3.5-5.1) 11/06/16 05:44 Chloride 106 mEq/L (98-107) 11/06/16 05:44 Carbon Dioxide 29.5 mEq/L (21.0-31.0) 11/06/16 05:44 Anion Gap 5.4 (7.0-16.0) L 11/06/16 05:44 BUN 7 mg/dL (7-25) 11/06/16 05:44 Creatinine 0.9 mg/dL (0.7-1.3) 11/06/16 05:44 Est GFR ( Amer) TNP 11/06/16 05:44 Est GFR (Non-Af Amer) TNP 11/06/16 05:44 BUN/Creatinine Ratio 7.8 11/06/16 05:44 Glucose 106 mg/dL (70-105) H 11/06/16 05:44 Calcium 9.0 mg/dL (8.6-10.3) 11/06/16 05:44 Total Bilirubin 0.7 mg/dL (0.3-1.0) 11/04/16 12:37 AST 17 U/L (13-39) 11/04/16 12:37 ALT 13 U/L (7-52) 11/04/16 12:37 Alkaline Phosphatase 83 U/L (34-104) 11/04/16 12:37 Ammonia 43 umol/L (16-53) 11/05/16 05:55 Total Protein 7.0 gm/dL (6.0-8.3) 11/04/16 12:37 Albumin 4.0 gm/dL (4.2-5.5) L 11/04/16 12:37 Globulin 3.0 gm/dL 11/04/16 12:37 Albumin/Globulin Ratio 1.3 (1.0-1.8) 11/04/16 12:37 Lipase 14 U/L (11-82) 11/04/16 12:37 Tumor Marker AFP 7.6 ng/mL (0.0-8.3) 11/05/16 05:55 Carcinoembryonic Ag 1.8 ng/mL (0.0-4.7) 11/05/16 05:55 Vitamin B12 615 pg/mL (211-946) 11/05/16 05:55 Folic Acid >20.0 ng/mL (>3.0) 11/05/16 05:55 TSH 1.42 uIU/ml (0.34-5.60) 11/05/16 05:55 Urine Source RANDOM 11/04/16 12:41 Urine Color YELLOW 11/04/16 12:41 Urine Clarity SL. CLOUDY (CLEAR) 11/04/16 12:41 Urine pH 6.5 11/04/16 12:41 Ur Specific [place] 1.025 (1.005-1.030) 11/04/16 12:41 Urine Protein NEGATIVE mg/dL (NEGATIVE) 11/04/16 12:41 Urine Glucose (UA) NEGATIVE mg/dL (NEGATIVE) 11/04/16 12:41 Urine Ketones NEGATIVE mg/dL (NEGATIVE) 11/04/16 12:41 Urine Blood NEGATIVE (NEGATIVE) 11/04/16 12:41 Urine Nitrate NEGATIVE (NEGATIVE) 11/04/16 12:41 Urine Bilirubin NEGATIVE (NEGATIVE) 11/04/16 12:41 Urine Urobilinogen 0.2 E.U./dL (0.2 - 1.0) 11/04/16 12:41 Ur Leukocyte Esterase NEGATIVE (NEGATIVE) 11/04/16 12:41 Urine RBC NONE SEEN /hpf (0-5) 11/04/16 12:41 Urine WBC NONE SEEN /hpf (0-5) 11/04/16 12:41 Ur Epithelial Cells RARE /lpf (FEW) 11/04/16 12:41 Urine Bacteria NONE SEEN /hpf (NONE SEEN) 11/04/16 12:41 - Physical Exam Vitals and I&O: Vital Signs Temp 96.8 F 11/07/16 08:00 Pulse 45 11/07/16 08:00 Resp 19 11/07/16 08:00 BP 146/65 11/07/16 08:00 Pulse Ox 100 11/07/16 08:00 Intake & Output 11/06/16 11/07/16 11/07/16 18:59 06:59 18:59 Intake Total 180 1160 Output Total 1 Balance 180 1159 Weight (lbs) 66.678 kg 72.121 kg Intake: Intake, IV Amount 960 D5-0.9%Ns 1,000 ml @ 80 960 mls/hr IV .[id number] [facility] Rx #:[id number] Oral 180 200 Output: Stool 1 Other: # Voids 3 4 # Bowel Movements 1 Active Medications: Current Medications Acetaminophen (Tylenol) 650 mg PO Q4H PRN PRN Reason: Pain Or Fever above 101 Stop: 01/03/17 17:06 Al Hydrox/Mg Hydrox/Simethicone (Maalox) 30 ml PO Q6H PRN PRN Reason: Dyspepsia Stop: 01/03/17 17:06 Albuterol Sulfate (Albuterol 2.5mg/3ml Neb Ud) 2.5 mg HHN Q2HRT PRN PRN Reason: Shortness of Breath or Wheeze Stop: 01/03/17 17:06 Bisacodyl (Dulcolax 10 Mg Supp) 10 mg RC DAILY PRN PRN Reason: Constipation IF MOM INEFFECTIV Stop: 01/04/17 15:19 Guaifenesin (Robitussin) 200 mg PO Q4HR PRN PRN Reason: Cough or Congestion Stop: 01/03/17 17:06 Heparin Sodium (Porcine) (Heparin) 5,000 units SUBQ Q12H [facility] Stop: 01/04/17 20:59 Last Admin: 11/06/16 22:03 Dose: 5,000 units Dextrose/Sodium Chloride (D5-0.9%Ns) 1,000 mls @ 80 mls/hr IV .[id number] [facility] Stop: 01/03/17 17:14 Last Admin: 11/07/16 04:20 Dose: 80 mls/hr Ipratropium Hurt (Atrovent Neb 0.5mg/2.5ml) 0.5 mg HHN Q2HRT PRN PRN Reason: Shortness of Breath or Wheeze Stop: 01/03/17 17:06 Magnesium Hydroxide (Milk Of Magnesia) 30 ml PO HS PRN PRN Reason: Constipation Stop: 01/04/17 15:19 Last Admin: 11/05/16 20:42 Dose: 30 ml Meclizine HCl (Antivert) 25 mg PO DAILY PRN PRN Reason: Nausea / Vomiting Stop: 01/03/17 17:06 Miscellaneous (Vte Chemical Prophylaxis Screen/ Admission) 1 ea [facility] PRN PRN PRN Reason: PROTOCOL Stop: 01/04/17 16:59 Morphine Sulfate (Morphine) 2 mg IVP Q4H PRN PRN Reason: Pain (Severe) Stop: 01/03/17 17:06 Last Admin: 11/05/16 11:43 Dose: 2 mg Olanzapine (Zyprexa) 2.5 mg PO HS ALYSA PRN Reason: Protocol Stop: 01/04/17 20:59 Last Admin: 11/06/16 22:02 Dose: 2.5 mg Ondansetron HCl (Zofran) 4 mg IV Q8H PRN PRN Reason: Nausea / Vomiting Stop: 01/03/17 17:06 Pantoprazole Sodium (Protonix) 40 mg IVP BID ALYSA Stop: 01/04/17 08:59 Last Admin: 11/06/16 17:18 Dose: Not Given Sertraline HCl (Zoloft) 25 mg PO DAILY ALYSA PRN Reason: Protocol Stop: 01/05/17 08:59 Last Admin: 11/06/16 09:14 Dose: 25 mg - Procedures Procedures: Procedures Procedure Code Date EMERGENCY DEPT VISIT 22665 06/14/11 INSERT INDWELLING CATH 57.94 06/14/11 INSERT TEMP BLADDER CATH 07774 06/14/11 Assessment/Plan - Problem List Patient Problems: All Active Problems EPIGASTRIC AND LOWER CHEST TIGHTNESS (Acute) URINARY RETENTION AND DISCONTINUATION FOLEYY (Acute) URINARY RETENTION WITH BLEEDING (Acute)
--- NOTE | 2016-11-07 16:04 | Internal Medicine Prog Note ---
Internal Medicine Subjective - Subjective Patient seen and examined:: with staff, chart reviewed Patient is:: awake, verbal, interactive Patient Complaints of:: other (ABDOMINAL PAIN) Per staff patient has:: no adverse event, no episodes of fall, poor appetite, agitated, tolerating meds, other (not able to sleep) Internal Medicine Objective - Results Result Diagrams: 11/06/16 05:44 11/06/16 05:44 Recent Labs: Laboratory Last Values WBC 6.0 Th/cmm (4.8-10.8) 11/06/16 05:44 RBC 4.64 Mil/cmm (3.80-5.80) 11/06/16 05:44 Hgb 13.9 gm/dL (12.6-17.4) 11/06/16 05:44 Hct 42.0 % (39.0-49.0) 11/06/16 05:44 MCV 90.6 fl (80-99) 11/06/16 05:44 MCH 30.0 pg (27.0-31.0) 11/06/16 05:44 MCHC Differential 33.1 pg (28.0-36.0) 11/06/16 05:44 RDW 12.5 % (11.5-20.0) 11/06/16 05:44 Plt Count 156 Th/cmm (150-400) 11/06/16 05:44 MPV 9.1 fl 11/06/16 05:44 Neutrophils % 60.8 % (40.0-80.0) 11/06/16 05:44 Lymphocytes % 23.3 % (20.0-50.0) 11/06/16 05:44 Monocytes % 10.5 % (2.0-10.0) H 11/06/16 05:44 Eosinophils % 5.4 % (0.0-5.0) H 11/06/16 05:44 Basophils % 0.0 % (0.0-2.0) 11/06/16 05:44 PT 11.0 SECONDS (9.5-11.5) 11/05/16 05:55 INR 1.06 (0.5-1.4) 11/05/16 05:55 PTT (Actin FS) 27.9 SECONDS (26.0-38.0) 11/05/16 05:55 Sodium 137 mEq/L (136-145) 11/06/16 05:44 Potassium 3.9 mEq/L (3.5-5.1) 11/06/16 05:44 Chloride 106 mEq/L (98-107) 11/06/16 05:44 Carbon Dioxide 29.5 mEq/L (21.0-31.0) 11/06/16 05:44 Anion Gap 5.4 (7.0-16.0) L 11/06/16 05:44 BUN 7 mg/dL (7-25) 11/06/16 05:44 Creatinine 0.9 mg/dL (0.7-1.3) 11/06/16 05:44 Est GFR ( Amer) TNP 11/06/16 05:44 Est GFR (Non-Af Amer) TNP 11/06/16 05:44 BUN/Creatinine Ratio 7.8 11/06/16 05:44 Glucose 106 mg/dL (70-105) H 11/06/16 05:44 Calcium 9.0 mg/dL (8.6-10.3) 11/06/16 05:44 Total Bilirubin 0.7 mg/dL (0.3-1.0) 11/04/16 12:37 AST 17 U/L (13-39) 11/04/16 12:37 ALT 13 U/L (7-52) 11/04/16 12:37 Alkaline Phosphatase 83 U/L (34-104) 11/04/16 12:37 Ammonia 43 umol/L (16-53) 11/05/16 05:55 Total Protein 7.0 gm/dL (6.0-8.3) 11/04/16 12:37 Albumin 4.0 gm/dL (4.2-5.5) L 11/04/16 12:37 Globulin 3.0 gm/dL 11/04/16 12:37 Albumin/Globulin Ratio 1.3 (1.0-1.8) 11/04/16 12:37 Lipase 14 U/L (11-82) 11/04/16 12:37 Tumor Marker AFP 7.6 ng/mL (0.0-8.3) 11/05/16 05:55 Carcinoembryonic Ag 1.8 ng/mL (0.0-4.7) 11/05/16 05:55 Vitamin B12 615 pg/mL (211-946) 11/05/16 05:55 Folic Acid >20.0 ng/mL (>3.0) 11/05/16 05:55 TSH 1.42 uIU/ml (0.34-5.60) 11/05/16 05:55 Urine Source RANDOM 11/04/16 12:41 Urine Color YELLOW 11/04/16 12:41 Urine Clarity SL. CLOUDY (CLEAR) 11/04/16 12:41 Urine pH 6.5 11/04/16 12:41 Ur Specific [place] 1.025 (1.005-1.030) 11/04/16 12:41 Urine Protein NEGATIVE mg/dL (NEGATIVE) 11/04/16 12:41 Urine Glucose (UA) NEGATIVE mg/dL (NEGATIVE) 11/04/16 12:41 Urine Ketones NEGATIVE mg/dL (NEGATIVE) 11/04/16 12:41 Urine Blood NEGATIVE (NEGATIVE) 11/04/16 12:41 Urine Nitrate NEGATIVE (NEGATIVE) 11/04/16 12:41 Urine Bilirubin NEGATIVE (NEGATIVE) 11/04/16 12:41 Urine Urobilinogen 0.2 E.U./dL (0.2 - 1.0) 11/04/16 12:41 Ur Leukocyte Esterase NEGATIVE (NEGATIVE) 11/04/16 12:41 Urine RBC NONE SEEN /hpf (0-5) 11/04/16 12:41 Urine WBC NONE SEEN /hpf (0-5) 11/04/16 12:41 Ur Epithelial Cells RARE /lpf (FEW) 11/04/16 12:41 Urine Bacteria NONE SEEN /hpf (NONE SEEN) 11/04/16 12:41 - Physical Exam Vitals and I&O: Vital Signs Temp 97.0 F 11/07/16 12:00 Pulse 51 11/07/16 12:00 Resp 20 11/07/16 12:00 BP 128/70 11/07/16 12:00 Pulse Ox 95 11/07/16 12:00 Intake & Output 11/06/16 11/07/16 11/07/16 18:59 06:59 18:59 Intake Total 180 1160 Output Total 1 Balance 180 1159 Weight (lbs) 66.678 kg 72.121 kg Intake: Intake, IV Amount 960 D5-0.9%Ns 1,000 ml @ 80 960 mls/hr IV .[id number] [facility] Rx #:[id number] Oral 180 200 Output: Stool 1 Other: # Voids 3 4 # Bowel Movements 1 Active Medications: Current Medications Acetaminophen (Tylenol) 650 mg PO Q4H PRN PRN Reason: Pain Or Fever above 101 Stop: 01/03/17 17:06 Al Hydrox/Mg Hydrox/Simethicone (Maalox) 30 ml PO Q6H PRN PRN Reason: Dyspepsia Stop: 01/03/17 17:06 Albuterol Sulfate (Albuterol 2.5mg/3ml Neb Ud) 2.5 mg HHN Q2HRT PRN PRN Reason: Shortness of Breath or Wheeze Stop: 01/03/17 17:06 Bisacodyl (Dulcolax 10 Mg Supp) 10 mg RC DAILY PRN PRN Reason: Constipation IF MOM INEFFECTIV Stop: 01/04/17 15:19 Guaifenesin (Robitussin) 200 mg PO Q4HR PRN PRN Reason: Cough or Congestion Stop: 01/03/17 17:06 Heparin Sodium (Porcine) (Heparin) 5,000 units SUBQ Q12H [facility] Stop: 01/04/17 20:59 Last Admin: 11/07/16 09:04 Dose: 5,000 units Dextrose/Sodium Chloride (D5-0.9%Ns) 1,000 mls @ 80 mls/hr IV .[id number] [facility] Stop: 01/03/17 17:14 Last Admin: 11/07/16 04:20 Dose: 80 mls/hr Ipratropium [place] (Atrovent Neb 0.5mg/2.5ml) 0.5 mg HHN Q2HRT PRN PRN Reason: Shortness of Breath or Wheeze Stop: 01/03/17 17:06 Magnesium Hydroxide (Milk Of Magnesia) 30 ml PO HS PRN PRN Reason: Constipation Stop: 01/04/17 15:19 Last Admin: 11/05/16 20:42 Dose: 30 ml Meclizine HCl (Antivert) 25 mg PO DAILY PRN PRN Reason: Nausea / Vomiting Stop: 01/03/17 17:06 Miscellaneous (Vte Chemical Prophylaxis Screen/ Admission) 1 ea MC PRN PRN PRN Reason: PROTOCOL Stop: 01/04/17 16:59 Morphine Sulfate (Morphine) 2 mg IVP Q4H PRN PRN Reason: Pain (Severe) Stop: 01/03/17 17:06 Last Admin: 11/05/16 11:43 Dose: 2 mg Olanzapine (Zyprexa) 2.5 mg PO HS ALYSA PRN Reason: Protocol Stop: 01/04/17 20:59 Last Admin: 11/06/16 22:02 Dose: 2.5 mg Ondansetron HCl (Zofran) 4 mg IV Q8H PRN PRN Reason: Nausea / Vomiting Stop: 01/03/17 17:06 Pantoprazole Sodium (Protonix) 40 mg IVP BID ALYSA Stop: 01/04/17 08:59 Last Admin: 11/07/16 09:05 Dose: Not Given Sertraline HCl (Zoloft) 25 mg PO DAILY ALYSA PRN Reason: Protocol Stop: 01/05/17 08:59 Last Admin: 11/07/16 09:04 Dose: 25 mg General: alert, appears older HEENT: NC/AT, PERRLA Neck: Supple Cardiovascular: RRR, Normal S1, Normal S2 Abdomen: soft, non-tender, non-distended Extremities: excoriation Neurological: no change - Procedures Procedures: Procedures Procedure Code Date EMERGENCY DEPT VISIT 90094 06/14/11 INSERT INDWELLING CATH 57.94 06/14/11 INSERT TEMP BLADDER CATH 00089 06/14/11 Internal Medicine Assmt/Plan - Assessment Assessment: abd pain generalized weakness cholelithiasis htn low albumin anxiety insomnia - Plan Plan: cont on iv abx will refer to surgery for possible lap migel ppi pain control briana rn and dr hughes will add restoril dw brother
[2016-11-08] MEDS: Morphine Sulfate 2 mg/mL 1mL Syr IVP PRN ×3 (00:14→20:47)
--- NOTE | 2016-11-08 00:57 | Admit Criteria Form ---
Admit Criteria Forms - Admit Criteria Diagnosis: ABDOMINAL PAIN Clinical Indications for Admission to Inpatient Care (Place 'X' for any and all applicable criteria): Admission is indicated for ANY ONE of the following(1)(2)(3)(4)(5): [X ]I. Inpatient admission required rather than observation care (Also use Abdominal Pain: Observation Care, as appropriate) because of ANY ONE of the following: [ ]a) Severe pain requiring acute inpatient management [X ]b) Identification of etiology/finding that requires inpatient care (eg, aortic dissection, free air) [ ]c) Absent bowel sounds with complete ileus(6) [ ]d) Suspected toxic megacolon [ ]e) Severe electrolyte abnormalities requiring inpatient care [ ]f) High fever or infection requiring inpatient admission as indicated by ANY ONE of following(7)(8): [ ] i) Appropriate outpatient or observational care antimicrobial treatment unavailable, not effective, or not feasible [ ] ii) Documented bacteremia [ ] iii) Temperature > 104.9 degrees F (oral) [ ] iv) T >103.1 F (oral) or < 96.8 F(rectal) that does not respond to all emergency treatment measures [ ]g) Signs of intestinal obstruction [B] [ ]h) Hemodynamic instability [ ]i) IV fluid to replace significant ongoing losses (greater than 3 L/m2 per day) (12)(13) [ ]j) Percutaneous or open drainage (eg, abscess, biliary tract ) procedures [ ]k) Parenteral nutrition regimen that must be implemented on inpatient basis [ ]l) Other condition,treatment or monitoring requiring inpatient admission. [ ]II. Peritoneal signs present [ ]III. Surgery needed that cannot be performed on an ambulatory basis. [ ]IV. Evaluation requires patient to not eat or drink for extended period ( eg, more than 24 hours). [ ]V. Contraindications and/or Inappropriate clinical situations for Observational Care in patients with abdominal pain, when ANY ONE of the following is required: [ ]a) Thorough evaluation is required to prevent catastrophic events due to delays in diagnosing (e.g.Mesenteric ischemia) 1,3 [ ]b) Patient with severe pathology or with chronic symptoms unlikely to improve in the ED stay (3) [X ]. General contraindications and/or Inappropriate clinical situations for Observational Care in patients with abdominal pain, when ANY ONE of the following is required: [X ]a) Prediction of prolongation of LOS based on ANY ONE of the following may be considered as a contraindication for observational care 2, 3, 4, 5, 6, 7, 8, 9, 10, 11 [X ]i) Age > 65 yrs. [ ]ii) Patient arriving by ambulance [ ]iii) Patient with high acuity [ ]iv) Patient requiring vital sign monitoring [ ]v) Patient on IV medication [ ]b) Systolic blood pressures 180mmHg 3,12 [ ]c) Patient with altered mental status including delirium and other alteration of consciousness, (3) [ ]d) Patient whose discharge disposition will be to a intermediate home or rehabilitation home should not be managed in Emergency Department Observation Unit. CMS rule requires 3 days hospital stay before such placement.3,13 [ ]e) Patient with failure to thrive due to broad array of etiologies 3,16,17 [ ]f) Inability to ambulate 3,14 Extended stay beyond goal length of stay may be needed for(2)(3): [ ]a) Persistent abdominal pain with suspected intra-abdominal process [ ]b) Diagnosed condition requiring continued stay (e.g., pancreatitis, complicated diverticulitis) [ ]c) Surgery (e.g., colectomy) The original [employer] [facility] content created by [employer] has been revised. The portions of the content which have been revised are identified through the use of italic text or in bold, and [facility] has neither reviewed nor approved the modified material.All other unmodified content is copyright [facility]. Please see references footnoted in the original [facility] edition 2016 Admit Criteria Met?: Yes
[2016-11-08] MEDS: D5-0.9%NS 1,000 ML IV SCH ×2 (05:26→20:16)
--- NOTE | 2016-11-08 12:04 | Internal Medicine Prog Note ---
Internal Medicine Subjective - Subjective Service Date: 11/08/16 (SCHEDULED FOR LAP MIGEL TODAY) Patient is:: awake, verbal, interactive Patient Complaints of:: other (ABDOMINAL PAIN) Per staff patient has:: no adverse event, no episodes of fall, poor appetite, agitated, tolerating meds, other (not able to sleep) Internal Medicine Objective - Results Result Diagrams: 11/06/16 05:44 11/06/16 05:44 Recent Labs: Laboratory Last Values WBC 6.0 Th/cmm (4.8-10.8) 11/06/16 05:44 RBC 4.64 Mil/cmm (3.80-5.80) 11/06/16 05:44 Hgb 13.9 gm/dL (12.6-17.4) 11/06/16 05:44 Hct 42.0 % (39.0-49.0) 11/06/16 05:44 MCV 90.6 fl (80-99) 11/06/16 05:44 MCH 30.0 pg (27.0-31.0) 11/06/16 05:44 MCHC Differential 33.1 pg (28.0-36.0) 11/06/16 05:44 RDW 12.5 % (11.5-20.0) 11/06/16 05:44 Plt Count 156 Th/cmm (150-400) 11/06/16 05:44 MPV 9.1 fl 11/06/16 05:44 Neutrophils % 60.8 % (40.0-80.0) 11/06/16 05:44 Lymphocytes % 23.3 % (20.0-50.0) 11/06/16 05:44 Monocytes % 10.5 % (2.0-10.0) H 11/06/16 05:44 Eosinophils % 5.4 % (0.0-5.0) H 11/06/16 05:44 Basophils % 0.0 % (0.0-2.0) 11/06/16 05:44 PT 11.0 SECONDS (9.5-11.5) 11/05/16 05:55 INR 1.06 (0.5-1.4) 11/05/16 05:55 PTT (Actin FS) 27.9 SECONDS (26.0-38.0) 11/05/16 05:55 Sodium 137 mEq/L (136-145) 11/06/16 05:44 Potassium 3.9 mEq/L (3.5-5.1) 11/06/16 05:44 Chloride 106 mEq/L (98-107) 11/06/16 05:44 Carbon Dioxide 29.5 mEq/L (21.0-31.0) 11/06/16 05:44 Anion Gap 5.4 (7.0-16.0) L 11/06/16 05:44 BUN 7 mg/dL (7-25) 11/06/16 05:44 Creatinine 0.9 mg/dL (0.7-1.3) 11/06/16 05:44 Est GFR ( Amer) TNP 11/06/16 05:44 Est GFR (Non-Af Amer) TNP 11/06/16 05:44 BUN/Creatinine Ratio 7.8 11/06/16 05:44 Glucose 106 mg/dL (70-105) H 11/06/16 05:44 Calcium 9.0 mg/dL (8.6-10.3) 11/06/16 05:44 Total Bilirubin 0.7 mg/dL (0.3-1.0) 11/04/16 12:37 AST 17 U/L (13-39) 11/04/16 12:37 ALT 13 U/L (7-52) 11/04/16 12:37 Alkaline Phosphatase 83 U/L (34-104) 11/04/16 12:37 Ammonia 43 umol/L (16-53) 11/05/16 05:55 Total Protein 7.0 gm/dL (6.0-8.3) 11/04/16 12:37 Albumin 4.0 gm/dL (4.2-5.5) L 11/04/16 12:37 Globulin 3.0 gm/dL 11/04/16 12:37 Albumin/Globulin Ratio 1.3 (1.0-1.8) 11/04/16 12:37 Lipase 14 U/L (11-82) 11/04/16 12:37 Tumor Marker AFP 7.6 ng/mL (0.0-8.3) 11/05/16 05:55 Carcinoembryonic Ag 1.8 ng/mL (0.0-4.7) 11/05/16 05:55 Vitamin B12 615 pg/mL (211-946) 11/05/16 05:55 Folic Acid >20.0 ng/mL (>3.0) 11/05/16 05:55 TSH 1.42 uIU/ml (0.34-5.60) 11/05/16 05:55 Urine Source RANDOM 11/04/16 12:41 Urine Color YELLOW 11/04/16 12:41 Urine Clarity SL. CLOUDY (CLEAR) 11/04/16 12:41 Urine pH 6.5 11/04/16 12:41 Ur Specific [place] 1.025 (1.005-1.030) 11/04/16 12:41 Urine Protein NEGATIVE mg/dL (NEGATIVE) 11/04/16 12:41 Urine Glucose (UA) NEGATIVE mg/dL (NEGATIVE) 11/04/16 12:41 Urine Ketones NEGATIVE mg/dL (NEGATIVE) 11/04/16 12:41 Urine Blood NEGATIVE (NEGATIVE) 11/04/16 12:41 Urine Nitrate NEGATIVE (NEGATIVE) 11/04/16 12:41 Urine Bilirubin NEGATIVE (NEGATIVE) 11/04/16 12:41 Urine Urobilinogen 0.2 E.U./dL (0.2 - 1.0) 11/04/16 12:41 Ur Leukocyte Esterase NEGATIVE (NEGATIVE) 11/04/16 12:41 Urine RBC NONE SEEN /hpf (0-5) 11/04/16 12:41 Urine WBC NONE SEEN /hpf (0-5) 11/04/16 12:41 Ur Epithelial Cells RARE /lpf (FEW) 11/04/16 12:41 Urine Bacteria NONE SEEN /hpf (NONE SEEN) 11/04/16 12:41 - Physical Exam Vitals and I&O: Vital Signs Temp 98.4 F 11/08/16 04:00 Pulse 61 11/08/16 08:04 Resp 20 11/08/16 08:06 BP 158/83 11/08/16 04:00 Pulse Ox 99 11/08/16 08:04 Intake & Output 11/07/16 11/08/16 11/08/16 18:59 06:59 18:59 Intake Total 1000 1065.333 Balance 1000 1065.333 Weight (lbs) 159 lb Intake: Intake, IV Amount 1000 945.333 D5-0.9%Ns 1,000 ml @ 80 1000 945.333 mls/hr IV .[id number] [facility] Rx #:[id number] Oral 120 Other: # Bowel Movements 2 Stool Characteristics Soft Active Medications: Current Medications Acetaminophen (Tylenol) 650 mg PO Q4H PRN PRN Reason: Pain Or Fever above 101 Stop: 01/03/17 17:06 Al Hydrox/Mg Hydrox/Simethicone (Maalox) 30 ml PO Q6H PRN PRN Reason: Dyspepsia Stop: 01/03/17 17:06 Albuterol Sulfate (Albuterol 2.5mg/3ml Neb Ud) 2.5 mg HHN Q2HRT PRN PRN Reason: Shortness of Breath or Wheeze Stop: 01/03/17 17:06 Bisacodyl (Dulcolax 10 Mg Supp) 10 mg RC DAILY PRN PRN Reason: Constipation IF MOM INEFFECTIV Stop: 01/04/17 15:19 Guaifenesin (Robitussin) 200 mg PO Q4HR PRN PRN Reason: Cough or Congestion Stop: 01/03/17 17:06 Heparin Sodium (Porcine) (Heparin) 5,000 units SUBQ Q12H [facility] Stop: 01/04/17 20:59 Last Admin: 11/08/16 08:56 Dose: 5,000 units Dextrose/Sodium Chloride (D5-0.9%Ns) 1,000 mls @ 80 mls/hr IV .[id number] [facility] Stop: 01/03/17 17:14 Last Admin: 11/08/16 05:26 Dose: 80 mls/hr Ipratropium [place] (Atrovent Neb 0.5mg/2.5ml) 0.5 mg HHN Q2HRT PRN PRN Reason: Shortness of Breath or Wheeze Stop: 01/03/17 17:06 Magnesium Hydroxide (Milk Of Magnesia) 30 ml PO HS PRN PRN Reason: Constipation Stop: 01/04/17 15:19 Last Admin: 11/05/16 20:42 Dose: 30 ml Meclizine HCl (Antivert) 25 mg PO DAILY PRN PRN Reason: Nausea / Vomiting Stop: 01/03/17 17:06 Miscellaneous (Vte Chemical Prophylaxis Screen/ Admission) 1 ea [facility] PRN PRN PRN Reason: PROTOCOL Stop: 01/04/17 16:59 Morphine Sulfate (Morphine) 2 mg IVP Q4H PRN PRN Reason: Pain (Severe) Stop: 01/03/17 17:06 Last Admin: 11/08/16 00:14 Dose: 2 mg Olanzapine (Zyprexa) 2.5 mg PO HS ALYSA PRN Reason: Protocol Stop: 01/04/17 20:59 Last Admin: 11/07/16 20:45 Dose: 2.5 mg Ondansetron HCl (Zofran) 4 mg IV Q8H PRN PRN Reason: Nausea / Vomiting Stop: 01/03/17 17:06 Pantoprazole Sodium (Protonix) 40 mg IVP BID ALYSA Stop: 01/04/17 08:59 Last Admin: 11/08/16 08:57 Dose: Not Given Sertraline HCl (Zoloft) 25 mg PO DAILY ALYSA PRN Reason: Protocol Stop: 01/05/17 08:59 Last Admin: 11/08/16 08:56 Dose: Not Given General: alert, appears older HEENT: NC/AT, PERRLA Neck: Supple Cardiovascular: RRR, Normal S1, Normal S2 Abdomen: soft, non-tender, non-distended Extremities: excoriation Neurological: no change - Procedures Procedures: Procedures Procedure Code Date EMERGENCY DEPT VISIT 45573 06/14/11 INSERT INDWELLING CATH 57.94 06/14/11 INSERT TEMP BLADDER CATH [id number] 06/14/11 Internal Medicine Assmt/Plan - Assessment Assessment: abd pain generalized weakness cholelithiasis htn low albumin anxiety insomnia FECAL IMPACTION - Plan Plan: lap migel today incentive spirometry after surgery am labs ivf for hydration iv antibiotics
[2016-11-08] MEDS ORDERED: Midazolam 1mg/ml 2 ml vial IV ONE (13:45)
[2016-11-08] MEDS ORDERED: Meperidine 50 mg/mL 1mL Syr ONE (13:46)
[2016-11-08] MEDS ORDERED: Neostigmine 10mg/10mL Vial ONE (14:55)
[2016-11-08] MEDS ORDERED: Meperidine 25 mg/mL 1mL Syr IVP PRN (15:12)
[2016-11-08] MEDS ORDERED: Lactated Ringer 1,000 ML IV SCH (15:15)
[2016-11-08] MEDS ORDERED: Meperidine 25 mg/mL 1mL Syr ONE ×2 (15:29→15:45)
--- NOTE | 2016-11-08 16:50 | Operative Report ---
DATE OF SURGERY: 11/08/2016 PREOPERATIVE DIAGNOSES: 1. Calculous cholecystitis. 2. Incisional hernia. 3. Anxiety disorder. POSTOPERATIVE DIAGNOSES: 1. Calculous cholecystitis. 2. Incisional hernia. 3. Anxiety disorder. OPERATION DONE: Exploratory laparotomy with: 1. Open cholecystectomy. 2. Lysis of dense adhesions. 3. Repair of ventral hernia. 4. Incidental appendectomy. ESTIMATED BLOOD LOSS: 30 mL. SURGEON: Camelia Orosco M.D. ANESTHESIA: General. ANESTHESIOLOGIST: Dr. Polk. INDICATIONS FOR SURGERY: The patient with 3-4 month history of upper abdominal pain with nausea. Gallbladder showed multiple gallstones. HIDA scan relayed visualization of the gallbladder. OPERATIVE FINDINGS: 1. Multiple stones in the gallbladder. Dense adhesions to the anterior abdominal wall. 2. Incisional hernias in the midline. PROCEDURE: The patient was given general anesthesia. The abdomen was prepped with ChloraPrep and draped in appropriate manner. An incision was made through the old scar. A free area above the incision was entered in a free space. The incision was carried down incising adhesions to the anterior abdominal wall freeing up the 2 hernias in the midline. The gallbladder was exposed and retrograde removal was done. Bleeders were clipped and electrocoagulated. The cystic duct was identified and the cystic artery was then clipped. A right angle clamp was then applied and 2-0 silk was used to ligate the cystic duct. The appendix was found to be elongated and this was removed. The incisional hernia was repaired primarily with running suture of #1 PDS. The skin was closed with subcuticular suture of 4-0 Vicryl. Sterile dressing was placed over this. The patient tolerated the procedure. JOB# [id number]
[2016-11-09] MEDS: Morphine Sulfate 2 mg/mL 1mL Syr IVP PRN ×3 (00:45→20:57)
[2016-11-09 06:54] LABS: HEMATOCRIT 40.3 % (39.0-49.0); HEMOGLOBIN 13.7 gm/dL (12.6-17.4); MEAN CELL VOLUME 89.3 fl (80-99); MEAN CORPUSCULAR HEMOGLOBIN 30.5 pg (27.0-31.0); MEAN CORPUSCULAR HGB CONC 34.1 pg (28.0-36.0); MEAN PLATELET VOLUME 8.8 fl; PLATELET COUNT 165 Th/cmm (150-400); RED BLOOD COUNT 4.51 Mil/cmm (3.80-5.80); RED CELL DISTRIBUTION WIDTH 12.8 % (11.5-20.0)
[2016-11-09 07:09] LABS: ANION GAP 11.2 (7.0-16.0); BUN - UREA NITROGEN 8 mg/dL (7-25); CALCIUM SERUM 8.9 mg/dL (8.6-10.3); CARBON DIOXIDE 23.5 mEq/L (21.0-31.0); CHLORIDE 103 mEq/L (98-107); CREATININE - SERUM 0.8 mg/dL (0.7-1.3); GLUCOSE 141 mg/dL (70-105); POTASSIUM SERUM 3.7 mEq/L (3.5-5.1); SODIUM SERUM 134 mEq/L (136-145)
[2016-11-09 07:14] LABS: WHITE BLOOD COUNT 16.1 Th/cmm (4.8-10.8)
[2016-11-09 08:16] LABS: BAND NEUTROPHILE 3 % (0-10); NEUTROPHILS 85 % (40-80); PLATELET ESTIMATE ADEQUATE (NORMAL); PLATELET MORPHOLOGY NORMAL (NORMAL); TOTAL CELLS COUNTED 100
[2016-11-09] MEDS: D5-0.9%NS 1,000 ML IV SCH (09:23)
--- NOTE | 2016-11-09 11:38 | Internal Medicine Prog Note ---
Internal Medicine Subjective - Subjective Service Date: 11/09/16 Patient is:: awake, verbal, interactive Patient Complaints of:: other (ABDOMINAL PAIN) Per staff patient has:: no adverse event, no episodes of fall, poor appetite, agitated, tolerating meds, other (not able to sleep) Internal Medicine Objective - Results Result Diagrams: 11/09/16 06:15 11/09/16 06:15 Recent Labs: Laboratory Last Values WBC 16.1 Th/cmm (4.8-10.8) H D 11/09/16 06:15 RBC 4.51 Mil/cmm (3.80-5.80) 11/09/16 06:15 Hgb 13.7 gm/dL (12.6-17.4) 11/09/16 06:15 Hct 40.3 % (39.0-49.0) 11/09/16 06:15 MCV 89.3 fl (80-99) 11/09/16 06:15 MCH 30.5 pg (27.0-31.0) 11/09/16 06:15 MCHC Differential 34.1 pg (28.0-36.0) 11/09/16 06:15 RDW 12.8 % (11.5-20.0) 11/09/16 06:15 Plt Count 165 Th/cmm (150-400) 11/09/16 06:15 MPV 8.8 fl 11/09/16 06:15 Neutrophils % 60.8 % (40.0-80.0) 11/06/16 05:44 Band Neutrophils % 3 % (0-10) 11/09/16 06:15 Lymphocytes % 23.3 % (20.0-50.0) 11/06/16 05:44 Monocytes % 10.5 % (2.0-10.0) H 11/06/16 05:44 Eosinophils % 5.4 % (0.0-5.0) H 11/06/16 05:44 Basophils % 0.0 % (0.0-2.0) 11/06/16 05:44 Neutrophils (Manual) 85 % (40-80) H 11/09/16 06:15 Lymphocytes 9 % (20-50) L 11/09/16 06:15 Monocytes 3 % (2-10) 11/09/16 06:15 Platelet Estimate ADEQUATE (NORMAL) 11/09/16 06:15 Platelet Morphology NORMAL (NORMAL) 11/09/16 06:15 RBC Morph Micro Appear NORMAL (NORMAL) 11/09/16 06:15 PT 11.0 SECONDS (9.5-11.5) 11/05/16 05:55 INR 1.06 (0.5-1.4) 11/05/16 05:55 PTT (Actin FS) 27.9 SECONDS (26.0-38.0) 11/05/16 05:55 Sodium 134 mEq/L (136-145) L 11/09/16 06:15 Potassium 3.7 mEq/L (3.5-5.1) 11/09/16 06:15 Chloride 103 mEq/L (98-107) 11/09/16 06:15 Carbon Dioxide 23.5 mEq/L (21.0-31.0) 11/09/16 06:15 Anion Gap 11.2 (7.0-16.0) 11/09/16 06:15 BUN 8 mg/dL (7-25) 11/09/16 06:15 Creatinine 0.8 mg/dL (0.7-1.3) 11/09/16 06:15 Est GFR ( Amer) TNP 11/09/16 06:15 Est GFR (Non-Af Amer) TNP 11/09/16 06:15 BUN/Creatinine Ratio 10.0 11/09/16 06:15 Glucose 141 mg/dL (70-105) H 11/09/16 06:15 Calcium 8.9 mg/dL (8.6-10.3) 11/09/16 06:15 Total Bilirubin 0.7 mg/dL (0.3-1.0) 11/04/16 12:37 AST 17 U/L (13-39) 11/04/16 12:37 ALT 13 U/L (7-52) 11/04/16 12:37 Alkaline Phosphatase 83 U/L (34-104) 11/04/16 12:37 Ammonia 43 umol/L (16-53) 11/05/16 05:55 Total Protein 7.0 gm/dL (6.0-8.3) 11/04/16 12:37 Albumin 4.0 gm/dL (4.2-5.5) L 11/04/16 12:37 Globulin 3.0 gm/dL 11/04/16 12:37 Albumin/Globulin Ratio 1.3 (1.0-1.8) 11/04/16 12:37 Lipase 14 U/L (11-82) 11/04/16 12:37 Tumor Marker AFP 7.6 ng/mL (0.0-8.3) 11/05/16 05:55 Carcinoembryonic Ag 1.8 ng/mL (0.0-4.7) 11/05/16 05:55 Vitamin B12 615 pg/mL (211-946) 11/05/16 05:55 Folic Acid >20.0 ng/mL (>3.0) 11/05/16 05:55 TSH 1.42 uIU/ml (0.34-5.60) 11/05/16 05:55 Urine Source RANDOM 11/04/16 12:41 Urine Color YELLOW 11/04/16 12:41 Urine Clarity SL. CLOUDY (CLEAR) 11/04/16 12:41 Urine pH 6.5 11/04/16 12:41 Ur Specific [place] 1.025 (1.005-1.030) 11/04/16 12:41 Urine Protein NEGATIVE mg/dL (NEGATIVE) 11/04/16 12:41 Urine Glucose (UA) NEGATIVE mg/dL (NEGATIVE) 11/04/16 12:41 Urine Ketones NEGATIVE mg/dL (NEGATIVE) 11/04/16 12:41 Urine Blood NEGATIVE (NEGATIVE) 11/04/16 12:41 Urine Nitrate NEGATIVE (NEGATIVE) 11/04/16 12:41 Urine Bilirubin NEGATIVE (NEGATIVE) 11/04/16 12:41 Urine Urobilinogen 0.2 E.U./dL (0.2 - 1.0) 11/04/16 12:41 Ur Leukocyte Esterase NEGATIVE (NEGATIVE) 11/04/16 12:41 Urine RBC NONE SEEN /hpf (0-5) 11/04/16 12:41 Urine WBC NONE SEEN /hpf (0-5) 11/04/16 12:41 Ur Epithelial Cells RARE /lpf (FEW) 11/04/16 12:41 Urine Bacteria NONE SEEN /hpf (NONE SEEN) 11/04/16 12:41 - Physical Exam Vitals and I&O: Vital Signs Temp 96.8 F 11/09/16 08:00 Pulse 67 11/09/16 08:00 Resp 19 11/09/16 08:00 BP 158/94 11/09/16 08:00 Pulse Ox 97 11/09/16 08:00 Intake & Output 11/08/16 11/09/16 11/09/16 18:59 06:59 18:59 Intake Total 8886 222 7921 Output Total 700 Balance 1000 -340 1000 Weight (lbs) 159 lb 159 lb Intake: Intake, IV Amount 1000 1000 D5-0.9%Ns 1,000 ml @ 80 1000 1000 mls/hr IV .[id number] [facility] Rx #:[id number] Oral 360 Output: Urine 700 Other: # Voids 2 2 Active Medications: Current Medications Acetaminophen (Tylenol) 650 mg PO Q4H PRN PRN Reason: Pain Or Fever above 101 Stop: 01/03/17 17:06 Al Hydrox/Mg Hydrox/Simethicone (Maalox) 30 ml PO Q6H PRN PRN Reason: Dyspepsia Stop: 01/03/17 17:06 Albuterol Sulfate (Albuterol 2.5mg/3ml Neb Ud) 2.5 mg HHN Q2HRT PRN PRN Reason: Shortness of Breath or Wheeze Stop: 01/03/17 17:06 Last Admin: 11/08/16 17:43 Dose: 2.5 mg Bisacodyl (Dulcolax 10 Mg Supp) 10 mg RC DAILY PRN PRN Reason: Constipation IF MOM INEFFECTIV Stop: 01/04/17 15:19 Guaifenesin (Robitussin) 200 mg PO Q4HR PRN PRN Reason: Cough or Congestion Stop: 01/03/17 17:06 Heparin Sodium (Porcine) (Heparin) 5,000 units SUBQ Q12H [facility] Stop: 01/04/17 20:59 Last Admin: 11/09/16 09:11 Dose: 5,000 units Dextrose/Sodium Chloride (D5-0.9%Ns) 1,000 mls @ 80 mls/hr IV .[id number] [facility] Stop: 01/03/17 17:14 Last Admin: 11/09/16 09:23 Dose: 80 mls/hr Ipratropium [place] (Atrovent Neb 0.5mg/2.5ml) 0.5 mg HHN Q2HRT PRN PRN Reason: Shortness of Breath or Wheeze Stop: 01/03/17 17:06 Last Admin: 11/08/16 17:43 Dose: 0.5 mg Magnesium Hydroxide (Milk Of Magnesia) 30 ml PO HS PRN PRN Reason: Constipation Stop: 01/04/17 15:19 Last Admin: 11/05/16 20:42 Dose: 30 ml Meclizine HCl (Antivert) 25 mg PO DAILY PRN PRN Reason: Nausea / Vomiting Stop: 01/03/17 17:06 Miscellaneous (Vte Chemical Prophylaxis Screen/ Admission) 1 ea [facility] PRN PRN PRN Reason: PROTOCOL Stop: 01/04/17 16:59 Morphine Sulfate (Morphine) 2 mg IVP Q4H PRN PRN Reason: Pain (Severe) Stop: 01/03/17 17:06 Last Admin: 11/09/16 09:19 Dose: 2 mg Olanzapine (Zyprexa) 2.5 mg PO HS ALYSA PRN Reason: Protocol Stop: 01/04/17 20:59 Last Admin: 11/09/16 00:48 Dose: 2.5 mg Ondansetron HCl (Zofran) 4 mg IV Q8H PRN PRN Reason: Nausea / Vomiting Stop: 01/03/17 17:06 Pantoprazole Sodium (Protonix) 40 mg IVP BID ALYSA Stop: 01/04/17 08:59 Last Admin: 11/09/16 09:11 Dose: 40 mg Sertraline HCl (Zoloft) 25 mg PO DAILY ALYSA PRN Reason: Protocol Stop: 01/05/17 08:59 Last Admin: 11/09/16 09:11 Dose: 25 mg General: alert, appears older HEENT: NC/AT, PERRLA Neck: Supple Cardiovascular: RRR, Normal S1, Normal S2 Abdomen: soft, non-tender, non-distended Extremities: excoriation Neurological: no change - Procedures Procedures: Procedures Procedure Code Date EMERGENCY DEPT VISIT 96610 06/14/11 INSERT INDWELLING CATH 57.94 06/14/11 INSERT TEMP BLADDER CATH 71817 06/14/11 Internal Medicine Assmt/Plan - Assessment Assessment: abd pain S/P EXP. LAP. CHOLECYSTECTOMY INCISIONAL HERNIA REPAIR INCIDENTAL APPENDECTOMY generalized weakness cholelithiasis htn low albumin anxiety insomnia FECAL IMPACTION - Plan Plan: incentive spirometry am labs ivf for hydration iv antibiotics
[2016-11-10 07:31] LABS: ALB/GLOB RATIO 1.1 (1.0-1.8); ALKALINE PHOSPHATASE 84 U/L (34-104); ANION GAP 12.5 (7.0-16.0); BUN - UREA NITROGEN 9 mg/dL (7-25); CALCIUM SERUM 9.2 mg/dL (8.6-10.3); CARBON DIOXIDE 22.5 mEq/L (21.0-31.0); CHLORIDE 105 mEq/L (98-107); CREATININE - SERUM 0.9 mg/dL (0.7-1.3); GLUCOSE 128 mg/dL (70-105); MAGNESIUM 1.9 mg/dL (1.9-2.7); SGOT 30 U/L (13-39); SGPT/ALT 22 U/L (7-52); SODIUM SERUM 136 mEq/L (136-145)
[2016-11-10 07:32] LABS: HEMOGLOBIN 15.4 gm/dL (12.6-17.4); MEAN CELL VOLUME 88.5 fl (80-99); MEAN CORPUSCULAR HEMOGLOBIN 30.2 pg (27.0-31.0); MEAN CORPUSCULAR HGB CONC 34.1 pg (28.0-36.0); MEAN PLATELET VOLUME 9.9 fl; RED CELL DISTRIBUTION WIDTH 12.9 % (11.5-20.0)
[2016-11-10 07:37] LABS: HEMATOCRIT 45.2 % (39.0-49.0); PLATELET COUNT NOT ABLE TO PERFORM Th/cmm (150-400); WHITE BLOOD COUNT 18.1 Th/cmm (4.8-10.8)
[2016-11-10 09:20] LABS: BAND NEUTROPHILE 1 % (0-10); NEUTROPHILS 83 % (40-80); PLATELET ESTIMATE ADEQUATE (NORMAL); PLATELET MORPHOLOGY PLATELET CLUMPS SEEN (NORMAL); TOTAL CELLS COUNTED 100
[2016-11-10] MEDS: D5-0.9%NS 1,000 ML IV SCH (09:21)
--- NOTE | 2016-11-10 13:15 | Internal Medicine Prog Note ---
Internal Medicine Subjective - Subjective Service Date: 11/10/16 (bilateral lower ext noted with +3 edema, patient c/o difficulty urinating) Patient is:: awake, verbal, interactive Patient Complaints of:: other (dysuria) Per staff patient has:: no adverse event, no episodes of fall, tolerating meds Internal Medicine Objective - Results Result Diagrams: 11/10/16 06:55 11/10/16 06:55 Recent Labs: Laboratory Last Values WBC 18.1 Th/cmm (4.8-10.8) H 11/10/16 06:55 RBC 5.10 Mil/cmm (3.80-5.80) 11/10/16 06:55 Hgb 15.4 gm/dL (12.6-17.4) 11/10/16 06:55 Hct 45.2 % (39.0-49.0) D 11/10/16 06:55 MCV 88.5 fl (80-99) 11/10/16 06:55 MCH 30.2 pg (27.0-31.0) 11/10/16 06:55 MCHC Differential 34.1 pg (28.0-36.0) 11/10/16 06:55 RDW 12.9 % (11.5-20.0) 11/10/16 06:55 Plt Count NOT ABLE TO PERFORM Th/cmm (150-400) D 11/10/16 06:55 MPV 9.9 fl 11/10/16 06:55 Neutrophils % 60.8 % (40.0-80.0) 11/06/16 05:44 Band Neutrophils % 1 % (0-10) 11/10/16 06:55 Lymphocytes % 23.3 % (20.0-50.0) 11/06/16 05:44 Monocytes % 10.5 % (2.0-10.0) H 11/06/16 05:44 Eosinophils % 5.4 % (0.0-5.0) H 11/06/16 05:44 Basophils % 0.0 % (0.0-2.0) 11/06/16 05:44 Neutrophils (Manual) 83 % (40-80) H 11/10/16 06:55 Lymphocytes 9 % (20-50) L 11/10/16 06:55 Monocytes 7 % (2-10) 11/10/16 06:55 Platelet Estimate ADEQUATE (NORMAL) 11/10/16 06:55 Platelet Morphology PLATELET CLUMPS SEEN (NORMAL) 11/10/16 06:55 RBC Morph Micro Appear NORMAL (NORMAL) 11/10/16 06:55 PT 11.0 SECONDS (9.5-11.5) 11/05/16 05:55 INR 1.06 (0.5-1.4) 11/05/16 05:55 PTT (Actin FS) 27.9 SECONDS (26.0-38.0) 11/05/16 05:55 Sodium 136 mEq/L (136-145) 11/10/16 06:55 Potassium 4.0 mEq/L (3.5-5.1) 11/10/16 06:55 Chloride 105 mEq/L (98-107) 11/10/16 06:55 Carbon Dioxide 22.5 mEq/L (21.0-31.0) 11/10/16 06:55 Anion Gap 12.5 (7.0-16.0) 11/10/16 06:55 BUN 9 mg/dL (7-25) 11/10/16 06:55 Creatinine 0.9 mg/dL (0.7-1.3) 11/10/16 06:55 Est GFR ( Amer) TNP 11/10/16 06:55 Est GFR (Non-Af Amer) TNP 11/10/16 06:55 BUN/Creatinine Ratio 10.0 11/10/16 06:55 Glucose 128 mg/dL (70-105) H 11/10/16 06:55 Calcium 9.2 mg/dL (8.6-10.3) 11/10/16 06:55 Magnesium 1.9 mg/dL (1.9-2.7) 11/10/16 06:55 Total Bilirubin 2.0 mg/dL (0.3-1.0) H 11/10/16 06:55 AST 30 U/L (13-39) 11/10/16 06:55 ALT 22 U/L (7-52) 11/10/16 06:55 Alkaline Phosphatase 84 U/L (34-104) 11/10/16 06:55 Ammonia 43 umol/L (16-53) 11/05/16 05:55 Total Protein 6.9 gm/dL (6.0-8.3) 11/10/16 06:55 Albumin 3.6 gm/dL (4.2-5.5) L 11/10/16 06:55 Globulin 3.3 gm/dL 11/10/16 06:55 Albumin/Globulin Ratio 1.1 (1.0-1.8) 11/10/16 06:55 Lipase 14 U/L (11-82) 11/04/16 12:37 Tumor Marker AFP 7.6 ng/mL (0.0-8.3) 11/05/16 05:55 Carcinoembryonic Ag 1.8 ng/mL (0.0-4.7) 11/05/16 05:55 Vitamin B12 615 pg/mL (211-946) 11/05/16 05:55 Folic Acid >20.0 ng/mL (>3.0) 11/05/16 05:55 TSH 1.42 uIU/ml (0.34-5.60) 11/05/16 05:55 Urine Source RANDOM 11/04/16 12:41 Urine Color YELLOW 11/04/16 12:41 Urine Clarity SL. CLOUDY (CLEAR) 11/04/16 12:41 Urine pH 6.5 11/04/16 12:41 Ur Specific [place] 1.025 (1.005-1.030) 11/04/16 12:41 Urine Protein NEGATIVE mg/dL (NEGATIVE) 11/04/16 12:41 Urine Glucose (UA) NEGATIVE mg/dL (NEGATIVE) 11/04/16 12:41 Urine Ketones NEGATIVE mg/dL (NEGATIVE) 11/04/16 12:41 Urine Blood NEGATIVE (NEGATIVE) 11/04/16 12:41 Urine Nitrate NEGATIVE (NEGATIVE) 11/04/16 12:41 Urine Bilirubin NEGATIVE (NEGATIVE) 11/04/16 12:41 Urine Urobilinogen 0.2 E.U./dL (0.2 - 1.0) 11/04/16 12:41 Ur Leukocyte Esterase NEGATIVE (NEGATIVE) 11/04/16 12:41 Urine RBC NONE SEEN /hpf (0-5) 11/04/16 12:41 Urine WBC NONE SEEN /hpf (0-5) 11/04/16 12:41 Ur Epithelial Cells RARE /lpf (FEW) 11/04/16 12:41 Urine Bacteria NONE SEEN /hpf (NONE SEEN) 11/04/16 12:41 - Physical Exam Vitals and I&O: Vital Signs Temp 98.2 F 11/10/16 11:59 Pulse 84 11/10/16 11:59 Resp 19 11/10/16 11:59 BP 155/82 11/10/16 11:59 Pulse Ox 98 11/10/16 11:59 Intake & Output 11/09/16 11/10/16 11/10/16 18:59 06:59 18:59 Intake Total 1050 1100 240 Output Total 1000 Balance 1050 1100 -760 Weight (lbs) 159 lb 159 lb Intake: Intake, IV Amount 1050 1100 D5-0.9%Ns 1,000 ml @ 80 1000 1000 mls/hr IV .[id number] [facility] Rx #:[id number] Piperacillin Sodium/ 50 100 Tazobact 3.375 gm In Sodium Chloride 0.9% 50 ml @ 100 mls/hr IV Q8H [facility] Rx#:[id number] Oral 240 Output: Urine 1000 Other: # Bowel Movements 0 Active Medications: Current Medications Acetaminophen (Tylenol) 650 mg PO Q4H PRN PRN Reason: Pain Or Fever above 101 Stop: 01/03/17 17:06 Last Admin: 11/10/16 03:25 Dose: 650 mg Al Hydrox/Mg Hydrox/Simethicone (Maalox) 30 ml PO Q6H PRN PRN Reason: Dyspepsia Stop: 01/03/17 17:06 Albuterol Sulfate (Albuterol 2.5mg/3ml Neb Ud) 2.5 mg HHN Q2HRT PRN PRN Reason: Shortness of Breath or Wheeze Stop: 01/03/17 17:06 Last Admin: 11/08/16 17:43 Dose: 2.5 mg Bisacodyl (Dulcolax 10 Mg Supp) 10 mg RC DAILY PRN PRN Reason: Constipation IF MOM INEFFECTIV Stop: 01/04/17 15:19 Guaifenesin (Robitussin) 200 mg PO Q4HR PRN PRN Reason: Cough or Congestion Stop: 01/03/17 17:06 Heparin Sodium (Porcine) (Heparin) 5,000 units SUBQ Q12H ALY[facility] Stop: 01/04/17 20:59 Last Admin: 11/10/16 09:26 Dose: 5,000 units Dextrose/Sodium Chloride (D5-0.9%Ns) 1,000 mls @ 80 mls/hr IV .[id number] [facility] Stop: 01/03/17 17:14 Last Admin: 11/10/16 09:21 Dose: 80 mls/hr Piperacillin Sod/Tazobactam (Sod 3.375 gm/ Sodium Chloride) 50 mls @ 100 mls/ hr IV Q8H ALYSA Stop: 01/08/17 11:59 Last Admin: 11/10/16 11:41 Dose: 100 mls/hr Ipratropium [place] (Atrovent Neb 0.5mg/2.5ml) 0.5 mg HHN Q2HRT PRN PRN Reason: Shortness of Breath or Wheeze Stop: 01/03/17 17:06 Last Admin: 11/08/16 17:43 Dose: 0.5 mg Magnesium Hydroxide (Milk Of Magnesia) 30 ml PO HS PRN PRN Reason: Constipation Stop: 01/04/17 15:19 Last Admin: 11/05/16 20:42 Dose: 30 ml Meclizine HCl (Antivert) 25 mg PO DAILY PRN PRN Reason: Nausea / Vomiting Stop: 01/03/17 17:06 Miscellaneous (Vte Chemical Prophylaxis Screen/ Admission) 1 ea [facility] PRN PRN PRN Reason: PROTOCOL Stop: 01/04/17 16:59 Morphine Sulfate (Morphine) 2 mg IVP Q4H PRN PRN Reason: Pain (Severe) Stop: 01/03/17 17:06 Last Admin: 11/09/16 20:57 Dose: 2 mg Olanzapine (Zyprexa) 2.5 mg PO HS ALYSA PRN Reason: Protocol Stop: 01/04/17 20:59 Last Admin: 11/09/16 20:47 Dose: 2.5 mg Ondansetron HCl (Zofran) 4 mg IV Q8H PRN PRN Reason: Nausea / Vomiting Stop: 01/03/17 17:06 Pantoprazole Sodium (Protonix) 40 mg IVP BID [facility] Stop: 01/04/17 08:59 Last Admin: 11/10/16 09:27 Dose: 40 mg Sertraline HCl (Zoloft) 25 mg PO DAILY ALYSA PRN Reason: Protocol Stop: 01/05/17 08:59 Last Admin: 11/10/16 09:26 Dose: 25 mg Tamsulosin HCl (Flomax) 0.4 mg PO BID ALY[facility] Stop: 01/09/17 12:59 General: alert, appears older HEENT: NC/AT, PERRLA Neck: Supple Cardiovascular: RRR, Normal S1, Normal S2 Abdomen: soft, non-tender, non-distended Extremities: excoriation Neurological: no change - Procedures Procedures: Procedures Procedure Code Date EMERGENCY DEPT VISIT 25287 06/14/11 INSERT INDWELLING CATH 57.94 06/14/11 INSERT TEMP BLADDER CATH 01902 06/14/11 REMOVAL OF GALLBLADDER [id number] 11/04/16 REPAIR ABDOMINAL WALL, OPEN APPROACH [id number] 11/04/16 RESECTION OF GALLBLADDER, OPEN APPROACH [id number] 11/04/16 RPR VENTRAL CALIN INIT REDUC [id number] 11/04/16 Internal Medicine Assmt/Plan - Assessment Assessment: abd pain S/P EXP. LAP. CHOLECYSTECTOMY INCISIONAL HERNIA REPAIR INCIDENTAL APPENDECTOMY generalized weakness cholelithiasis htn low albumin anxiety insomnia FECAL IMPACTION DYSURIA - Plan Plan: keep ivf tko bladder us incentive spirometry am labs ivf for hydration iv antibiotics Nutritional Asmnt/Malnutr-PDOC - Dietary Evaluation Malnutrition Findings (Please click <Entered> for more info): Nutritional Asmnt/Malnutrition Start: 11/09/16 14: 45 Text: Status: Complete Freq: Document 11/09/16 14:45 GSUN (Rec: 11/09/16 14:58 GSUN [email or web address]) Nutritional Asmnt/Malnutrition Patient General Information Nutritional Screening Moderate Risk Screening Diagnosis Abd pain, cholelithiasis, HTN Pertinent Medical Hx/Surgical Hx HTN, colon ca s/p resection, constipation, gastritis, anxiety Subjective Information 71 year old male. 11/08: cholecystectomy incisional hernia repair incidental appendectomy. Pt was sitting in chair next to bed resting, family at bedside. Pt was pleasant, appeared anxious, gave short responses. 11/08 breakfast: clear liquid diet ordered, pt has been toelrating well. Pt stated usually good appetite, denied nutritional concerns. Teeth intact. No muscle/fat wasting noted. Last BM 11/07 x2. Current Diet Order/ Nutrition Support Clear liquid Pertinent Medications Dulcolax, D5-0.9%ns, MOM, Morphine, Zofran, Protonix Pertinent Labs Reviewed. Nutritional Hx/Data Height 5 ft 10 in Height (Calculated Centimeters) 177.8 Current Weight (lbs) 159 lb Weight (Calculated Kilograms) 72.1 Weight (Calculated Grams) 38347.2 [place] Body Weight 166 Weight Status Approriate GI Symptoms Skin Integrity/Comment: Ashwin Saenz. track layer: skin intact. Estimated Nutritional Goals BEE in Kcals: Using Current wt Calories/Kcals/Kg CBW 159lb/72.3kg Kcals Calculated 1808-2169kcal (25-30kcal/kg) Protein: Using Current wt Protein Calculated 72g (1g/kg) Fluid: ml 1808-2169ml (1ml/kcal) Nutritional Problem 1. Problem Problem Inadequate oral food beverage intake related to Etiology GI function s/p cholecystectomy incisional hernia repair incidental appendectomy aeb Signs/Symptoms: currently on clear liquid Intervention/Recommendation Comments 1. Recommend diet advance at tolerated to low fat diet. 2. Provided brief nutrition education on low fat diet post cholecystectomy, pt and family has no questions at this time. Expected Outcomes/Goals Expected Outcomes/Goals 1. PO intake to meet at least 75% of estimated nutritional needs.
--- NOTE | 2016-11-10 13:31 | General Progress Note ---
Subjective - Review of Systems Service Date: 11/10/16 Events since last encounter: unable to urinate - US of bladder WBC high, on antibiotics edema lower ext. labs noted Subjective: brother has signed consent for surgery - will likely need open cholecystectomy due to previous surgeries Objective - Results Result Diagrams: 11/10/16 06:55 11/10/16 06:55 Recent Labs: Laboratory Last Values WBC 18.1 Th/cmm (4.8-10.8) H 11/10/16 06:55 RBC 5.10 Mil/cmm (3.80-5.80) 11/10/16 06:55 Hgb 15.4 gm/dL (12.6-17.4) 11/10/16 06:55 Hct 45.2 % (39.0-49.0) D 11/10/16 06:55 MCV 88.5 fl (80-99) 11/10/16 06:55 MCH 30.2 pg (27.0-31.0) 11/10/16 06:55 MCHC Differential 34.1 pg (28.0-36.0) 11/10/16 06:55 RDW 12.9 % (11.5-20.0) 11/10/16 06:55 Plt Count NOT ABLE TO PERFORM Th/cmm (150-400) D 11/10/16 06:55 MPV 9.9 fl 11/10/16 06:55 Neutrophils % 60.8 % (40.0-80.0) 11/06/16 05:44 Band Neutrophils % 1 % (0-10) 11/10/16 06:55 Lymphocytes % 23.3 % (20.0-50.0) 11/06/16 05:44 Monocytes % 10.5 % (2.0-10.0) H 11/06/16 05:44 Eosinophils % 5.4 % (0.0-5.0) H 11/06/16 05:44 Basophils % 0.0 % (0.0-2.0) 11/06/16 05:44 Neutrophils (Manual) 83 % (40-80) H 11/10/16 06:55 Lymphocytes 9 % (20-50) L 11/10/16 06:55 Monocytes 7 % (2-10) 11/10/16 06:55 Platelet Estimate ADEQUATE (NORMAL) 11/10/16 06:55 Platelet Morphology PLATELET CLUMPS SEEN (NORMAL) 11/10/16 06:55 RBC Morph Micro Appear NORMAL (NORMAL) 11/10/16 06:55 PT 11.0 SECONDS (9.5-11.5) 11/05/16 05:55 INR 1.06 (0.5-1.4) 11/05/16 05:55 PTT (Actin FS) 27.9 SECONDS (26.0-38.0) 11/05/16 05:55 Sodium 136 mEq/L (136-145) 11/10/16 06:55 Potassium 4.0 mEq/L (3.5-5.1) 11/10/16 06:55 Chloride 105 mEq/L (98-107) 11/10/16 06:55 Carbon Dioxide 22.5 mEq/L (21.0-31.0) 11/10/16 06:55 Anion Gap 12.5 (7.0-16.0) 11/10/16 06:55 BUN 9 mg/dL (7-25) 11/10/16 06:55 Creatinine 0.9 mg/dL (0.7-1.3) 11/10/16 06:55 Est GFR ( Amer) TNP 11/10/16 06:55 Est GFR (Non-Af Amer) TNP 11/10/16 06:55 BUN/Creatinine Ratio 10.0 11/10/16 06:55 Glucose 128 mg/dL (70-105) H 11/10/16 06:55 Calcium 9.2 mg/dL (8.6-10.3) 11/10/16 06:55 Magnesium 1.9 mg/dL (1.9-2.7) 11/10/16 06:55 Total Bilirubin 2.0 mg/dL (0.3-1.0) H 11/10/16 06:55 AST 30 U/L (13-39) 11/10/16 06:55 ALT 22 U/L (7-52) 11/10/16 06:55 Alkaline Phosphatase 84 U/L (34-104) 11/10/16 06:55 Ammonia 43 umol/L (16-53) 11/05/16 05:55 Total Protein 6.9 gm/dL (6.0-8.3) 11/10/16 06:55 Albumin 3.6 gm/dL (4.2-5.5) L 11/10/16 06:55 Globulin 3.3 gm/dL 11/10/16 06:55 Albumin/Globulin Ratio 1.1 (1.0-1.8) 11/10/16 06:55 Lipase 14 U/L (11-82) 11/04/16 12:37 Tumor Marker AFP 7.6 ng/mL (0.0-8.3) 11/05/16 05:55 Carcinoembryonic Ag 1.8 ng/mL (0.0-4.7) 11/05/16 05:55 Vitamin B12 615 pg/mL (211-946) 11/05/16 05:55 Folic Acid >20.0 ng/mL (>3.0) 11/05/16 05:55 TSH 1.42 uIU/ml (0.34-5.60) 11/05/16 05:55 Urine Source RANDOM 11/04/16 12:41 Urine Color YELLOW 11/04/16 12:41 Urine Clarity SL. CLOUDY (CLEAR) 11/04/16 12:41 Urine pH 6.5 11/04/16 12:41 Ur Specific [place] 1.025 (1.005-1.030) 11/04/16 12:41 Urine Protein NEGATIVE mg/dL (NEGATIVE) 11/04/16 12:41 Urine Glucose (UA) NEGATIVE mg/dL (NEGATIVE) 11/04/16 12:41 Urine Ketones NEGATIVE mg/dL (NEGATIVE) 11/04/16 12:41 Urine Blood NEGATIVE (NEGATIVE) 11/04/16 12:41 Urine Nitrate NEGATIVE (NEGATIVE) 11/04/16 12:41 Urine Bilirubin NEGATIVE (NEGATIVE) 11/04/16 12:41 Urine Urobilinogen 0.2 E.U./dL (0.2 - 1.0) 11/04/16 12:41 Ur Leukocyte Esterase NEGATIVE (NEGATIVE) 11/04/16 12:41 Urine RBC NONE SEEN /hpf (0-5) 11/04/16 12:41 Urine WBC NONE SEEN /hpf (0-5) 11/04/16 12:41 Ur Epithelial Cells RARE /lpf (FEW) 11/04/16 12:41 Urine Bacteria NONE SEEN /hpf (NONE SEEN) 11/04/16 12:41 - Physical Exam Vitals and I&O: Vital Signs Temp 98.2 F 11/10/16 11:59 Pulse 84 11/10/16 11:59 Resp 19 11/10/16 11:59 BP 155/82 11/10/16 11:59 Pulse Ox 98 11/10/16 11:59 Intake & Output 11/09/16 11/10/16 11/10/16 18:59 06:59 18:59 Intake Total 1050 1100 240 Output Total 1000 Balance 1050 1100 -760 Weight (lbs) 72.121 kg 72.121 kg Intake: Intake, IV Amount 1050 1100 D5-0.9%Ns 1,000 ml @ 80 1000 1000 mls/hr IV .[id number] [facility] Rx #:[id number] Piperacillin Sodium/ 50 100 Tazobact 3.375 gm In Sodium Chloride 0.9% 50 ml @ 100 mls/hr IV Q8H [facility] Rx#:[id number] Oral 240 Output: Urine 1000 Other: # Bowel Movements 0 Active Medications: Current Medications Acetaminophen (Tylenol) 650 mg PO Q4H PRN PRN Reason: Pain Or Fever above 101 Stop: 01/03/17 17:06 Last Admin: 11/10/16 03:25 Dose: 650 mg Al Hydrox/Mg Hydrox/Simethicone (Maalox) 30 ml PO Q6H PRN PRN Reason: Dyspepsia Stop: 01/03/17 17:06 Albuterol Sulfate (Albuterol 2.5mg/3ml Neb Ud) 2.5 mg HHN Q2HRT PRN PRN Reason: Shortness of Breath or Wheeze Stop: 01/03/17 17:06 Last Admin: 11/08/16 17:43 Dose: 2.5 mg Bisacodyl (Dulcolax 10 Mg Supp) 10 mg RC DAILY PRN PRN Reason: Constipation IF MOM INEFFECTIV Stop: 01/04/17 15:19 Guaifenesin (Robitussin) 200 mg PO Q4HR PRN PRN Reason: Cough or Congestion Stop: 01/03/17 17:06 Heparin Sodium (Porcine) (Heparin) 5,000 units SUBQ Q12H [facility] Stop: 01/04/17 20:59 Last Admin: 11/10/16 09:26 Dose: 5,000 units Dextrose/Sodium Chloride (D5-0.9%Ns) 1,000 mls @ 80 mls/hr IV .[id number] [facility] Stop: 01/03/17 17:14 Last Admin: 11/10/16 09:21 Dose: 80 mls/hr Piperacillin Sod/Tazobactam (Sod 3.375 gm/ Sodium Chloride) 50 mls @ 100 mls/ hr IV Q8H [facility] Stop: 01/08/17 11:59 Last Admin: 11/10/16 11:41 Dose: 100 mls/hr Ipratropium [place] (Atrovent Neb 0.5mg/2.5ml) 0.5 mg HHN Q2HRT PRN PRN Reason: Shortness of Breath or Wheeze Stop: 01/03/17 17:06 Last Admin: 11/08/16 17:43 Dose: 0.5 mg Magnesium Hydroxide (Milk Of Magnesia) 30 ml PO HS PRN PRN Reason: Constipation Stop: 01/04/17 15:19 Last Admin: 11/05/16 20:42 Dose: 30 ml Meclizine HCl (Antivert) 25 mg PO DAILY PRN PRN Reason: Nausea / Vomiting Stop: 01/03/17 17:06 Miscellaneous (Vte Chemical Prophylaxis Screen/ Admission) 1 ea [facility] PRN PRN PRN Reason: PROTOCOL Stop: 01/04/17 16:59 Morphine Sulfate (Morphine) 2 mg IVP Q4H PRN PRN Reason: Pain (Severe) Stop: 01/03/17 17:06 Last Admin: 11/09/16 20:57 Dose: 2 mg Olanzapine (Zyprexa) 2.5 mg PO HS [facility] PRN Reason: Protocol Stop: 01/04/17 20:59 Last Admin: 11/09/16 20:47 Dose: 2.5 mg Ondansetron HCl (Zofran) 4 mg IV Q8H PRN PRN Reason: Nausea / Vomiting Stop: 01/03/17 17:06 Pantoprazole Sodium (Protonix) 40 mg IVP BID [facility] Stop: 01/04/17 08:59 Last Admin: 11/10/16 09:27 Dose: 40 mg Sertraline HCl (Zoloft) 25 mg PO DAILY [facility] PRN Reason: Protocol Stop: 01/05/17 08:59 Last Admin: 11/10/16 09:26 Dose: 25 mg Tamsulosin HCl (Flomax) 0.4 mg PO BID [facility] Stop: 01/09/17 12:59 - Procedures Procedures: Procedures Procedure Code Date EMERGENCY DEPT VISIT 99037 06/14/11 INSERT INDWELLING CATH 57.94 06/14/11 INSERT TEMP BLADDER CATH 18986 06/14/11 REMOVAL OF GALLBLADDER 78727 11/04/16 REPAIR ABDOMINAL WALL, OPEN APPROACH [id number] 11/04/16 RESECTION OF GALLBLADDER, OPEN APPROACH [id number] 11/04/16 RPR VENTRAL CALIN INIT REDUC 45304 11/04/16 Assessment/Plan - Problem List Patient Problems: All Active Problems EPIGASTRIC AND LOWER CHEST TIGHTNESS (Acute) URINARY RETENTION AND DISCONTINUATION FOLEYY (Acute) URINARY RETENTION WITH BLEEDING (Acute) Nutritional Asmnt/Malnutr-PDOC - Dietary Evaluation Malnutrition Findings (Please click <Entered> for more info): Nutritional Asmnt/Malnutrition Start: 11/09/16 14: 45 Text: Status: Complete Freq: Document 11/09/16 14:45 GSUN (Rec: 11/09/16 14:58 GSUN [email or web address]) Nutritional Asmnt/Malnutrition Patient General Information Nutritional Screening Moderate Risk Screening Diagnosis Abd pain, cholelithiasis, HTN Pertinent Medical Hx/Surgical Hx HTN, colon ca s/p resection, constipation, gastritis, anxiety Subjective Information 71 year old male. 11/08: cholecystectomy incisional hernia repair incidental appendectomy. Pt was sitting in chair next to bed resting, family at bedside. Pt was pleasant, appeared anxious, gave short responses. 11/08 breakfast: clear liquid diet ordered, pt has been toelrating well. Pt stated usually good appetite, denied nutritional concerns. Teeth intact. No muscle/fat wasting noted. Last BM 11/07 x2. Current Diet Order/ Nutrition Support Clear liquid Pertinent Medications Dulcolax, D5-0.9%ns, MOM, Morphine, Zofran, Protonix Pertinent Labs Reviewed. 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 Estimated Nutritional Goals BEE in Kcals: Using Current wt Calories/Kcals/Kg CBW 159lb/72.3kg Kcals Calculated 1808-2169kcal (25-30kcal/kg) Protein: Using Current wt Protein Calculated 72g (1g/kg) Fluid: ml 1808-2169ml (1ml/kcal) Nutritional Problem 1. Problem Problem Inadequate oral food beverage intake related to Etiology GI function s/p cholecystectomy incisional hernia repair incidental appendectomy aeb Signs/Symptoms: currently on clear liquid Intervention/Recommendation Comments 1. Recommend diet advance at tolerated to low fat diet. 2. Provided brief nutrition education on low fat diet post cholecystectomy, pt and family has no questions at this time. Expected Outcomes/Goals Expected Outcomes/Goals 1. PO intake to meet at least 75% of estimated nutritional needs.
--- NOTE | 2016-11-10 15:04 | Diagnostic Imaging Report ---
Ultrasound urinary bladder HISTORY: Painful urination (dysuria) Urinary bladder exhibits a normal contour. There is partial visualization of what appears to be a markedly enlarged prostate gland with marked encroachment on the lower lumen of the urinary bladder. IMPRESSION: 1. Marked enlargement of the prostate gland with encroachment on the floor the urinary bladder. Post void urine residual not calculated at this time.
[2016-11-10] MEDS: Morphine Sulfate 2 mg/mL 1mL Syr IVP PRN (15:43)
--- NOTE | 2016-11-10 16:12 | Pathology Report ---
[id number] Collection Date: 11/08/2016 Surgeon: Dr. Samantha Orosco Specimen Description: 1. Gallbladder 2. Appendix Gross Description: Part I: Received in formalin is an 8 x 3 cm oval gallbladder with smooth deolng-baez outer surface. Opening the gallbladder reveals multiple dark green gallstones measuring up to 1.0 cm in greatest dimension. The gallbladder wall ranges from 0.1 to 0.2 cm in thickness. Site Leasing Agent sections are submitted in one cassette. Gross Pathologic Diagnosis: Cholelithiasis, gallbladder. Microscopic Description: The histologic sections show gallbladder wall and mucosa with chronic inflammation present consisting of lymphocytes and plasma cells. Diagnosis: Part I: Chronic cholecystitis, gallbladder. Gross Description: Part II: Received in formalin is a 4.5 cm in length x 0.5 cm in diameter intact appendix with a smooth delong outer surface. Sectioning shows an intact appendix wall and lumen with no evidence for exudate or adhesions. Microscopic Description: Part II: The histologic sections show appendix with intact wall and mucosa. There is no evidence for acute inflammation. Diagnosis: Part II: Normal appendix, incidental appendectomy. [facility]# [id number]
[2016-11-10] MEDS: metroNIDAZOLE 500mg/NS 100mL 500 MG/100 ML BAG IV SCH (21:51)
[2016-11-11] MEDS: metroNIDAZOLE 500mg/NS 100mL 500 MG/100 ML BAG IV SCH ×3 (06:14→21:52)
[2016-11-11 07:28] LABS: % BASOPHILS 0.9 % (0.0-2.0); % EOSINOPHILS 4.5 % (0.0-5.0); % MONOCYTES 8.8 % (2.0-10.0); % NEUTROPHILS 72.8 % (40.0-80.0); HEMATOCRIT 44.4 % (39.0-49.0); HEMOGLOBIN 14.9 gm/dL (12.6-17.4); MEAN CORPUSCULAR HEMOGLOBIN 30.2 pg (27.0-31.0); MEAN CORPUSCULAR HGB CONC 33.5 pg (28.0-36.0); MEAN PLATELET VOLUME 9.5 fl; RED BLOOD COUNT 4.93 Mil/cmm (3.80-5.80); RED CELL DISTRIBUTION WIDTH 12.6 % (11.5-20.0)
[2016-11-11 07:29] LABS: ANION GAP 10.4 (7.0-16.0); BUN - UREA NITROGEN 10 mg/dL (7-25); BUN/CREATININE RATIO 11.1; CALCIUM SERUM 9.4 mg/dL (8.6-10.3); CARBON DIOXIDE 29.1 mEq/L (21.0-31.0); CHLORIDE 102 mEq/L (98-107); CREATININE - SERUM 0.9 mg/dL (0.7-1.3); GLUCOSE 102 mg/dL (70-105); POTASSIUM SERUM 3.5 mEq/L (3.5-5.1); SODIUM SERUM 138 mEq/L (136-145)
--- NOTE | 2016-11-11 09:33 | Diagnostic Imaging Report ---
Bilateral lower extremity Doppler venous ultrasound exam HISTORY: Pain/swelling Sonographic sector images were obtained through the deep venous systems of both legs. Associated Doppler data was obtained. The exam demonstrates patency of the common femoral, superficial femoral, popliteal, and posterior tibial veins bilaterally. Specifically, no thrombus is seen. There are normal compressibility and augmentation responses. IMPRESSION: Negative exam for deep vein thrombophlebitis.
[2016-11-11 09:43] LABS: PLATELET COUNT 120 Th/cmm (150-400)
--- NOTE | 2016-11-11 12:04 | Internal Medicine Prog Note ---
Internal Medicine Subjective - Subjective Service Date: 11/11/16 (no bm x4days ) Patient is:: awake, verbal, interactive Patient Complaints of:: other (dysuria) Per staff patient has:: no adverse event, no episodes of fall, tolerating meds Internal Medicine Objective - Results Result Diagrams: 11/11/16 06:09 11/11/16 06:09 Recent Labs: Laboratory Last Values WBC 11.0 Th/cmm (4.8-10.8) H D 11/11/16 06:09 RBC 4.93 Mil/cmm (3.80-5.80) 11/11/16 06:09 Hgb 14.9 gm/dL (12.6-17.4) 11/11/16 06:09 Hct 44.4 % (39.0-49.0) 11/11/16 06:09 MCV 90.0 fl (80-99) 11/11/16 06:09 MCH 30.2 pg (27.0-31.0) 11/11/16 06:09 MCHC Differential 33.5 pg (28.0-36.0) 11/11/16 06:09 RDW 12.6 % (11.5-20.0) 11/11/16 06:09 Plt Count 120 Th/cmm (150-400) L D 11/11/16 06:09 MPV 9.5 fl 11/11/16 06:09 Neutrophils % 72.8 % (40.0-80.0) 11/11/16 06:09 Band Neutrophils % 1 % (0-10) 11/10/16 06:55 Lymphocytes % 13.0 % (20.0-50.0) L 11/11/16 06:09 Monocytes % 8.8 % (2.0-10.0) 11/11/16 06:09 Eosinophils % 4.5 % (0.0-5.0) 11/11/16 06:09 Basophils % 0.9 % (0.0-2.0) 11/11/16 06:09 Neutrophils (Manual) 83 % (40-80) H 11/10/16 06:55 Lymphocytes 9 % (20-50) L 11/10/16 06:55 Monocytes 7 % (2-10) 11/10/16 06:55 Platelet Estimate ADEQUATE (NORMAL) 11/10/16 06:55 Platelet Morphology PLATELET CLUMPS SEEN (NORMAL) 11/10/16 06:55 RBC Morph Micro Appear NORMAL (NORMAL) 11/10/16 06:55 PT 11.0 SECONDS (9.5-11.5) 11/05/16 05:55 INR 1.06 (0.5-1.4) 11/05/16 05:55 PTT (Actin FS) 27.9 SECONDS (26.0-38.0) 11/05/16 05:55 Sodium 138 mEq/L (136-145) 11/11/16 06:09 Potassium 3.5 mEq/L (3.5-5.1) 11/11/16 06:09 Chloride 102 mEq/L (98-107) 11/11/16 06:09 Carbon Dioxide 29.1 mEq/L (21.0-31.0) 11/11/16 06:09 Anion Gap 10.4 (7.0-16.0) 11/11/16 06:09 BUN 10 mg/dL (7-25) 11/11/16 06:09 Creatinine 0.9 mg/dL (0.7-1.3) 11/11/16 06:09 Est GFR ( Amer) TNP 11/11/16 06:09 Est GFR (Non-Af Amer) TNP 11/11/16 06:09 BUN/Creatinine Ratio 11.1 11/11/16 06:09 Glucose 102 mg/dL (70-105) 11/11/16 06:09 Calcium 9.4 mg/dL (8.6-10.3) 11/11/16 06:09 Magnesium 1.9 mg/dL (1.9-2.7) 11/10/16 06:55 Total Bilirubin 2.0 mg/dL (0.3-1.0) H 11/10/16 06:55 AST 30 U/L (13-39) 11/10/16 06:55 ALT 22 U/L (7-52) 11/10/16 06:55 Alkaline Phosphatase 84 U/L (34-104) 11/10/16 06:55 Ammonia 43 umol/L (16-53) 11/05/16 05:55 Total Protein 6.9 gm/dL (6.0-8.3) 11/10/16 06:55 Albumin 3.6 gm/dL (4.2-5.5) L 11/10/16 06:55 Globulin 3.3 gm/dL 11/10/16 06:55 Albumin/Globulin Ratio 1.1 (1.0-1.8) 11/10/16 06:55 Lipase 14 U/L (11-82) 11/04/16 12:37 Tumor Marker AFP 7.6 ng/mL (0.0-8.3) 11/05/16 05:55 Carcinoembryonic Ag 1.8 ng/mL (0.0-4.7) 11/05/16 05:55 Vitamin B12 615 pg/mL (211-946) 11/05/16 05:55 Folic Acid >20.0 ng/mL (>3.0) 11/05/16 05:55 TSH 1.42 uIU/ml (0.34-5.60) 11/05/16 05:55 Urine Source RANDOM 11/04/16 12:41 Urine Color YELLOW 11/04/16 12:41 Urine Clarity SL. CLOUDY (CLEAR) 11/04/16 12:41 Urine pH 6.5 11/04/16 12:41 Ur Specific [place] 1.025 (1.005-1.030) 11/04/16 12:41 Urine Protein NEGATIVE mg/dL (NEGATIVE) 11/04/16 12:41 Urine Glucose (UA) NEGATIVE mg/dL (NEGATIVE) 11/04/16 12:41 Urine Ketones NEGATIVE mg/dL (NEGATIVE) 11/04/16 12:41 Urine Blood NEGATIVE (NEGATIVE) 11/04/16 12:41 Urine Nitrate NEGATIVE (NEGATIVE) 11/04/16 12:41 Urine Bilirubin NEGATIVE (NEGATIVE) 11/04/16 12:41 Urine Urobilinogen 0.2 E.U./dL (0.2 - 1.0) 11/04/16 12:41 Ur Leukocyte Esterase NEGATIVE (NEGATIVE) 11/04/16 12:41 Urine RBC NONE SEEN /hpf (0-5) 11/04/16 12:41 Urine WBC NONE SEEN /hpf (0-5) 11/04/16 12:41 Ur Epithelial Cells RARE /lpf (FEW) 11/04/16 12:41 Urine Bacteria NONE SEEN /hpf (NONE SEEN) 11/04/16 12:41 - Physical Exam Vitals and I&O: Vital Signs Temp 97.9 F 11/11/16 10:26 Pulse 81 11/11/16 10:26 Resp 19 11/11/16 10:26 BP 155/80 11/11/16 10:26 Pulse Ox 95 11/11/16 06:55 Intake & Output 11/10/16 11/11/16 11/11/16 18:59 06:59 18:59 Intake Total 290 540 100 Output Total 1000 800 Balance -710 -260 100 Weight (lbs) 159 lb 161 lb Intake: Intake, IV Amount 50 200 100 Piperacillin Sodium/ 50 100 Tazobact 3.375 gm In Sodium Chloride 0.9% 50 ml @ 100 mls/hr IV Q8H [facility] Rx#:[id number] metroNIDAZOLE 500mg/NS 100 100 100mL 500 mg In 100 ml @ 100 mls/hr IV Q8HR [facility] Rx #:[id number] Oral 240 340 Output: Urine 1000 800 Other: # Bowel Movements 0 0 Active Medications: Current Medications Acetaminophen (Tylenol) 650 mg PO Q4H PRN PRN Reason: Pain Or Fever above 101 Stop: 01/03/17 17:06 Last Admin: 11/10/16 21:15 Dose: 650 mg Al Hydrox/Mg Hydrox/Simethicone (Maalox) 30 ml PO Q6H PRN PRN Reason: Dyspepsia Stop: 01/03/17 17:06 Last Admin: 11/10/16 21:15 Dose: 30 ml Albuterol Sulfate (Albuterol 2.5mg/3ml Neb Ud) 2.5 mg HHN Q2HRT PRN PRN Reason: Shortness of Breath or Wheeze Stop: 01/03/17 17:06 Last Admin: 11/08/16 17:43 Dose: 2.5 mg Bisacodyl (Dulcolax 10 Mg Supp) 10 mg RC DAILY PRN PRN Reason: Constipation IF MOM INEFFECTIV Stop: 01/04/17 15:19 Guaifenesin (Robitussin) 200 mg PO Q4HR PRN PRN Reason: Cough or Congestion Stop: 01/03/17 17:06 Heparin Sodium (Porcine) (Heparin) 5,000 units SUBQ Q12H [facility] Stop: 01/04/17 20:59 Last Admin: 11/11/16 08:35 Dose: 5,000 units Piperacillin Sod/Tazobactam (Sod 3.375 gm/ Sodium Chloride) 50 mls @ 100 mls/ hr IV Q8H [facility] Stop: 01/08/17 11:59 Last Infusion: 11/11/16 06:14 Dose: Infused Metronidazole (Flagyl) 500 mg in 100 mls @ 100 mls/hr IV Q8HR [facility] Stop: 01/09/17 20:59 Last Infusion: 11/11/16 07:14 Dose: Infused Ipratropium [place] (Atrovent Neb 0.5mg/2.5ml) 0.5 mg HHN Q2HRT PRN PRN Reason: Shortness of Breath or Wheeze Stop: 01/03/17 17:06 Last Admin: 11/08/16 17:43 Dose: 0.5 mg Magnesium Hydroxide (Milk Of Magnesia) 30 ml PO HS PRN PRN Reason: Constipation Stop: 01/04/17 15:19 Last Admin: 11/05/16 20:42 Dose: 30 ml Meclizine HCl (Antivert) 25 mg PO DAILY PRN PRN Reason: Nausea / Vomiting Stop: 01/03/17 17:06 Miscellaneous (Vte Chemical Prophylaxis Screen/ Admission) 1 ea [facility] PRN PRN PRN Reason: PROTOCOL Stop: 01/04/17 16:59 Morphine Sulfate (Morphine) 2 mg IVP Q4H PRN PRN Reason: Pain (Severe) Stop: 01/03/17 17:06 Last Admin: 11/10/16 15:43 Dose: 2 mg Olanzapine (Zyprexa) 2.5 mg PO HS [facility] PRN Reason: Protocol Stop: 01/04/17 20:59 Last Admin: 11/10/16 21:08 Dose: 2.5 mg Ondansetron HCl (Zofran) 4 mg IV Q8H PRN PRN Reason: Nausea / Vomiting Stop: 01/03/17 17:06 Pantoprazole Sodium (Protonix) 40 mg IVP BID [facility] Stop: 01/04/17 08:59 Last Admin: 11/11/16 08:35 Dose: 40 mg Sertraline HCl (Zoloft) 25 mg PO DAILY [facility] PRN Reason: Protocol Stop: 01/05/17 08:59 Last Admin: 11/11/16 08:35 Dose: 25 mg Tamsulosin HCl (Flomax) 0.4 mg PO DAILY [facility] Stop: 01/10/17 08:59 Last Admin: 11/11/16 08:35 Dose: 0.4 mg General: alert, appears older HEENT: NC/AT, PERRLA Neck: Supple Cardiovascular: RRR, Normal S1, Normal S2 Abdomen: soft, non-tender, non-distended Extremities: excoriation Neurological: no change - Procedures Procedures: Procedures Procedure Code Date EMERGENCY DEPT VISIT 86246 06/14/11 INSERT INDWELLING CATH 57.94 06/14/11 INSERT TEMP BLADDER CATH 86764 06/14/11 REMOVAL OF GALLBLADDER 98917 11/04/16 REPAIR ABDOMINAL WALL, OPEN APPROACH [id number] 11/04/16 RESECTION OF GALLBLADDER, OPEN APPROACH [id number] 11/04/16 RPR VENTRAL CALIN INIT REDUC 44532 11/04/16 Internal Medicine Assmt/Plan - Assessment Assessment: abd pain S/P EXP. LAP. CHOLECYSTECTOMY INCISIONAL HERNIA REPAIR INCIDENTAL APPENDECTOMY generalized weakness cholelithiasis htn low albumin anxiety insomnia FECAL IMPACTION DYSURIA - Plan Plan: advance diet as tolerated incentive spirometry am labs ivf for hydration iv antibiotics Nutritional Asmnt/Malnutr-PDOC - Dietary Evaluation Malnutrition Findings (Please click <Entered> for more info): Nutritional Asmnt/Malnutrition Start: 11/09/16 14: 45 Text: Status: Complete Freq: Document 11/09/16 14:45 GSUN (Rec: 11/09/16 14:58 GSUN [email or web address]) Nutritional Asmnt/Malnutrition Patient General Information Nutritional Screening Moderate Risk Screening Diagnosis Abd pain, cholelithiasis, HTN Pertinent Medical Hx/Surgical Hx HTN, colon ca s/p resection, constipation, gastritis, anxiety Subjective Information 71 year old male. 11/08: cholecystectomy incisional hernia repair incidental appendectomy. Pt was sitting in chair next to bed resting, family at bedside. Pt was pleasant, appeared anxious, gave short responses. 11/08 breakfast: clear liquid diet ordered, pt has been toelrating well. Pt stated usually good appetite, denied nutritional concerns. Teeth intact. No muscle/fat wasting noted. Last BM 11/07 x2. Current Diet Order/ Nutrition Support Clear liquid Pertinent Medications Dulcolax, D5-0.9%ns, MOM, Morphine, Zofran, Protonix Pertinent Labs Reviewed. 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 Estimated Nutritional Goals BEE in Kcals: Using Current wt Calories/Kcals/Kg CBW 159lb/72.3kg Kcals Calculated 1808-2169kcal (25-30kcal/kg) Protein: Using Current wt Protein Calculated 72g (1g/kg) Fluid: ml 1808-2169ml (1ml/kcal) Nutritional Problem 1. Problem Problem Inadequate oral food beverage intake related to Etiology GI function s/p cholecystectomy incisional hernia repair incidental appendectomy aeb Signs/Symptoms: currently on clear liquid Intervention/Recommendation Comments 1. Recommend diet advance at tolerated to low fat diet. 2. Provided brief nutrition education on low fat diet post cholecystectomy, pt and family has no questions at this time. Expected Outcomes/Goals Expected Outcomes/Goals 1. PO intake to meet at least 75% of estimated nutritional needs.
--- NOTE | 2016-11-11 12:37 | General Progress Note ---
Subjective - Review of Systems Service Date: 11/11/16 Events since last encounter: needs Null in place tolerating oral intke, no BM yet recheck labs Subjective: brother has signed consent for surgery - will likely need open cholecystectomy due to previous surgeries Objective - Results Result Diagrams: 11/11/16 06:09 11/11/16 06:09 Recent Labs: Laboratory Last Values WBC 11.0 Th/cmm (4.8-10.8) H D 11/11/16 06:09 RBC 4.93 Mil/cmm (3.80-5.80) 11/11/16 06:09 Hgb 14.9 gm/dL (12.6-17.4) 11/11/16 06:09 Hct 44.4 % (39.0-49.0) 11/11/16 06:09 MCV 90.0 fl (80-99) 11/11/16 06:09 MCH 30.2 pg (27.0-31.0) 11/11/16 06:09 MCHC Differential 33.5 pg (28.0-36.0) 11/11/16 06:09 RDW 12.6 % (11.5-20.0) 11/11/16 06:09 Plt Count 120 Th/cmm (150-400) L D 11/11/16 06:09 MPV 9.5 fl 11/11/16 06:09 Neutrophils % 72.8 % (40.0-80.0) 11/11/16 06:09 Band Neutrophils % 1 % (0-10) 11/10/16 06:55 Lymphocytes % 13.0 % (20.0-50.0) L 11/11/16 06:09 Monocytes % 8.8 % (2.0-10.0) 11/11/16 06:09 Eosinophils % 4.5 % (0.0-5.0) 11/11/16 06:09 Basophils % 0.9 % (0.0-2.0) 11/11/16 06:09 Neutrophils (Manual) 83 % (40-80) H 11/10/16 06:55 Lymphocytes 9 % (20-50) L 11/10/16 06:55 Monocytes 7 % (2-10) 11/10/16 06:55 Platelet Estimate ADEQUATE (NORMAL) 11/10/16 06:55 Platelet Morphology PLATELET CLUMPS SEEN (NORMAL) 11/10/16 06:55 RBC Morph Micro Appear NORMAL (NORMAL) 11/10/16 06:55 PT 11.0 SECONDS (9.5-11.5) 11/05/16 05:55 INR 1.06 (0.5-1.4) 11/05/16 05:55 PTT (Actin FS) 27.9 SECONDS (26.0-38.0) 11/05/16 05:55 Sodium 138 mEq/L (136-145) 11/11/16 06:09 Potassium 3.5 mEq/L (3.5-5.1) 11/11/16 06:09 Chloride 102 mEq/L (98-107) 11/11/16 06:09 Carbon Dioxide 29.1 mEq/L (21.0-31.0) 11/11/16 06:09 Anion Gap 10.4 (7.0-16.0) 11/11/16 06:09 BUN 10 mg/dL (7-25) 11/11/16 06:09 Creatinine 0.9 mg/dL (0.7-1.3) 11/11/16 06:09 Est GFR ( Amer) TNP 11/11/16 06:09 Est GFR (Non-Af Amer) TNP 11/11/16 06:09 BUN/Creatinine Ratio 11.1 11/11/16 06:09 Glucose 102 mg/dL (70-105) 11/11/16 06:09 Calcium 9.4 mg/dL (8.6-10.3) 11/11/16 06:09 Magnesium 1.9 mg/dL (1.9-2.7) 11/10/16 06:55 Total Bilirubin 2.0 mg/dL (0.3-1.0) H 11/10/16 06:55 AST 30 U/L (13-39) 11/10/16 06:55 ALT 22 U/L (7-52) 11/10/16 06:55 Alkaline Phosphatase 84 U/L (34-104) 11/10/16 06:55 Ammonia 43 umol/L (16-53) 11/05/16 05:55 Total Protein 6.9 gm/dL (6.0-8.3) 11/10/16 06:55 Albumin 3.6 gm/dL (4.2-5.5) L 11/10/16 06:55 Globulin 3.3 gm/dL 11/10/16 06:55 Albumin/Globulin Ratio 1.1 (1.0-1.8) 11/10/16 06:55 Lipase 14 U/L (11-82) 11/04/16 12:37 Tumor Marker AFP 7.6 ng/mL (0.0-8.3) 11/05/16 05:55 Carcinoembryonic Ag 1.8 ng/mL (0.0-4.7) 11/05/16 05:55 Vitamin B12 615 pg/mL (211-946) 11/05/16 05:55 Folic Acid >20.0 ng/mL (>3.0) 11/05/16 05:55 TSH 1.42 uIU/ml (0.34-5.60) 11/05/16 05:55 Urine Source RANDOM 11/04/16 12:41 Urine Color YELLOW 11/04/16 12:41 Urine Clarity SL. CLOUDY (CLEAR) 11/04/16 12:41 Urine pH 6.5 11/04/16 12:41 Ur Specific [place] 1.025 (1.005-1.030) 11/04/16 12:41 Urine Protein NEGATIVE mg/dL (NEGATIVE) 11/04/16 12:41 Urine Glucose (UA) NEGATIVE mg/dL (NEGATIVE) 11/04/16 12:41 Urine Ketones NEGATIVE mg/dL (NEGATIVE) 11/04/16 12:41 Urine Blood NEGATIVE (NEGATIVE) 11/04/16 12:41 Urine Nitrate NEGATIVE (NEGATIVE) 11/04/16 12:41 Urine Bilirubin NEGATIVE (NEGATIVE) 11/04/16 12:41 Urine Urobilinogen 0.2 E.U./dL (0.2 - 1.0) 11/04/16 12:41 Ur Leukocyte Esterase NEGATIVE (NEGATIVE) 11/04/16 12:41 Urine RBC NONE SEEN /hpf (0-5) 11/04/16 12:41 Urine WBC NONE SEEN /hpf (0-5) 11/04/16 12:41 Ur Epithelial Cells RARE /lpf (FEW) 11/04/16 12:41 Urine Bacteria NONE SEEN /hpf (NONE SEEN) 11/04/16 12:41 - Physical Exam Vitals and I&O: Vital Signs Temp 97.9 F 11/11/16 10:26 Pulse 81 11/11/16 10:26 Resp 19 11/11/16 10:26 BP 155/80 11/11/16 10:26 Pulse Ox 95 11/11/16 06:55 Intake & Output 11/10/16 11/11/16 11/11/16 18:59 06:59 18:59 Intake Total 290 540 100 Output Total 1000 800 Balance -710 -260 100 Weight (lbs) 72.121 kg 73.028 kg Intake: Intake, IV Amount 50 200 100 Piperacillin Sodium/ 50 100 Tazobact 3.375 gm In Sodium Chloride 0.9% 50 ml @ 100 mls/hr IV Q8H [facility] Rx#:[id number] metroNIDAZOLE 500mg/NS 100 100 100mL 500 mg In 100 ml @ 100 mls/hr IV Q8HR [facility] Rx #:[id number] Oral 240 340 Output: Urine 1000 800 Other: # Bowel Movements 0 0 Active Medications: Current Medications Acetaminophen (Tylenol) 650 mg PO Q4H PRN PRN Reason: Pain Or Fever above 101 Stop: 01/03/17 17:06 Last Admin: 11/10/16 21:15 Dose: 650 mg Al Hydrox/Mg Hydrox/Simethicone (Maalox) 30 ml PO Q6H PRN PRN Reason: Dyspepsia Stop: 01/03/17 17:06 Last Admin: 11/10/16 21:15 Dose: 30 ml Albuterol Sulfate (Albuterol 2.5mg/3ml Neb Ud) 2.5 mg HHN Q2HRT PRN PRN Reason: Shortness of Breath or Wheeze Stop: 01/03/17 17:06 Last Admin: 11/08/16 17:43 Dose: 2.5 mg Bisacodyl (Dulcolax 10 Mg Supp) 10 mg RC DAILY PRN PRN Reason: Constipation IF MOM INEFFECTIV Stop: 01/04/17 15:19 Guaifenesin (Robitussin) 200 mg PO Q4HR PRN PRN Reason: Cough or Congestion Stop: 01/03/17 17:06 Heparin Sodium (Porcine) (Heparin) 5,000 units SUBQ Q12H [facility] Stop: 01/04/17 20:59 Last Admin: 11/11/16 08:35 Dose: 5,000 units Piperacillin Sod/Tazobactam (Sod 3.375 gm/ Sodium Chloride) 50 mls @ 100 mls/ hr IV Q8H [facility] Stop: 01/08/17 11:59 Last Infusion: 11/11/16 06:14 Dose: Infused Metronidazole (Flagyl) 500 mg in 100 mls @ 100 mls/hr IV Q8HR [facility] Stop: 01/09/17 20:59 Last Infusion: 11/11/16 07:14 Dose: Infused Ipratropium [place] (Atrovent Neb 0.5mg/2.5ml) 0.5 mg HHN Q2HRT PRN PRN Reason: Shortness of Breath or Wheeze Stop: 01/03/17 17:06 Last Admin: 11/08/16 17:43 Dose: 0.5 mg Magnesium Hydroxide (Milk Of Magnesia) 30 ml PO HS PRN PRN Reason: Constipation Stop: 01/04/17 15:19 Last Admin: 11/05/16 20:42 Dose: 30 ml Meclizine HCl (Antivert) 25 mg PO DAILY PRN PRN Reason: Nausea / Vomiting Stop: 01/03/17 17:06 Miscellaneous (Vte Chemical Prophylaxis Screen/ Admission) 1 ea [facility] PRN PRN PRN Reason: PROTOCOL Stop: 01/04/17 16:59 Morphine Sulfate (Morphine) 2 mg IVP Q4H PRN PRN Reason: Pain (Severe) Stop: 01/03/17 17:06 Last Admin: 11/10/16 15:43 Dose: 2 mg Olanzapine (Zyprexa) 2.5 mg PO HS ALYSA PRN Reason: Protocol Stop: 01/04/17 20:59 Last Admin: 11/10/16 21:08 Dose: 2.5 mg Ondansetron HCl (Zofran) 4 mg IV Q8H PRN PRN Reason: Nausea / Vomiting Stop: 01/03/17 17:06 Pantoprazole Sodium (Protonix) 40 mg IVP BID [facility] Stop: 01/04/17 08:59 Last Admin: 11/11/16 08:35 Dose: 40 mg Sertraline HCl (Zoloft) 25 mg PO DAILY ALYSA PRN Reason: Protocol Stop: 01/05/17 08:59 Last Admin: 11/11/16 08:35 Dose: 25 mg Tamsulosin HCl (Flomax) 0.4 mg PO DAILY ALYSA Stop: 01/10/17 08:59 Last Admin: 11/11/16 08:35 Dose: 0.4 mg - Procedures Procedures: Procedures Procedure Code Date EMERGENCY DEPT VISIT 45306 06/14/11 INSERT INDWELLING CATH 57.94 06/14/11 INSERT TEMP BLADDER CATH 53341 06/14/11 REMOVAL OF GALLBLADDER 60083 11/04/16 REPAIR ABDOMINAL WALL, OPEN APPROACH [id number] 11/04/16 RESECTION OF GALLBLADDER, OPEN APPROACH [id number] 11/04/16 RPR VENTRAL CALIN INIT REDUC 12439 11/04/16 Assessment/Plan - Problem List Patient Problems: All Active Problems EPIGASTRIC AND LOWER CHEST TIGHTNESS (Acute) URINARY RETENTION AND DISCONTINUATION FOLEYY (Acute) URINARY RETENTION WITH BLEEDING (Acute) Nutritional Asmnt/Malnutr-PDOC - Dietary Evaluation Malnutrition Findings (Please click <Entered> for more info): Nutritional Asmnt/Malnutrition Start: 11/09/16 14: 45 Text: Status: Complete Freq: Document 11/09/16 14:45 GSUN (Rec: 11/09/16 14:58 GSUN [email or web address]) Nutritional Asmnt/Malnutrition Patient General Information Nutritional Screening Moderate Risk Screening Diagnosis Abd pain, cholelithiasis, HTN Pertinent Medical Hx/Surgical Hx HTN, colon ca s/p resection, constipation, gastritis, anxiety Subjective Information 71 year old male. 11/08: cholecystectomy incisional hernia repair incidental appendectomy. Pt was sitting in chair next to bed resting, family at bedside. Pt was pleasant, appeared anxious, gave short responses. 11/08 breakfast: clear liquid diet ordered, pt has been toelrating well. Pt stated usually good appetite, denied nutritional concerns. Teeth intact. No muscle/fat wasting noted. Last BM 11/07 x2. Current Diet Order/ Nutrition Support Clear liquid Pertinent Medications Dulcolax, D5-0.9%ns, MOM, Morphine, Zofran, Protonix Pertinent Labs Reviewed. 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 Estimated Nutritional Goals BEE in Kcals: Using Current wt Calories/Kcals/Kg CBW 159lb/72.3kg Kcals Calculated 1808-2169kcal (25-30kcal/kg) Protein: Using Current wt Protein Calculated 72g (1g/kg) Fluid: ml 1808-2169ml (1ml/kcal) Nutritional Problem 1. Problem Problem Inadequate oral food beverage intake related to Etiology GI function s/p cholecystectomy incisional hernia repair incidental appendectomy aeb Signs/Symptoms: currently on clear liquid Intervention/Recommendation Comments 1. Recommend diet advance at tolerated to low fat diet. 2. Provided brief nutrition education on low fat diet post cholecystectomy, pt and family has no questions at this time. Expected Outcomes/Goals Expected Outcomes/Goals 1. PO intake to meet at least 75% of estimated nutritional needs.
[2016-11-11] MEDS: Morphine Sulfate 2 mg/mL 1mL Syr IVP PRN (12:44)
[2016-11-11 13:05] LABS: ALB/GLOB RATIO 1.1 (1.0-1.8); ALKALINE PHOSPHATASE 77 U/L (34-104); ANION GAP 14.6 (7.0-16.0); BILIRUBIN,TOTAL 1.4 mg/dL (0.3-1.0); BUN - UREA NITROGEN 10 mg/dL (7-25); BUN/CREATININE RATIO 11.1; CALCIUM SERUM 9.6 mg/dL (8.6-10.3); CARBON DIOXIDE 24.9 mEq/L (21.0-31.0); CHLORIDE 102 mEq/L (98-107); CREATININE - SERUM 0.9 mg/dL (0.7-1.3); GLUCOSE 97 mg/dL (70-105); POTASSIUM SERUM 3.5 mEq/L (3.5-5.1); SGOT 25 U/L (13-39); SGPT/ALT 17 U/L (7-52); SODIUM SERUM 138 mEq/L (136-145)
[2016-11-11] MEDS ORDERED: Magnesium Hydroxide (MOM) 30 mL UDC PO PRN (14:43)
[2016-11-11] MEDS ORDERED: Fleet Enema 135 mL RC PRN (14:44)
[2016-11-12] MEDS: metroNIDAZOLE 500mg/NS 100mL 500 MG/100 ML BAG IV SCH (04:08)
[2016-11-12 06:59] LABS: % EOSINOPHILS 7.5 % (0.0-5.0); % LYMPHOCYTES 12.1 % (20.0-50.0); % MONOCYTES 9.9 % (2.0-10.0); % NEUTROPHILS 70.5 % (40.0-80.0); MEAN CELL VOLUME 91.1 fl (80-99); MEAN CORPUSCULAR HEMOGLOBIN 30.6 pg (27.0-31.0); MEAN CORPUSCULAR HGB CONC 33.6 pg (28.0-36.0); MEAN PLATELET VOLUME 9.1 fl; NEUTROPHILE ABSOLUTE 7.3 Th/cmm (1.8-8.0); RED BLOOD COUNT 4.25 Mil/cmm (3.80-5.80); RED CELL DISTRIBUTION WIDTH 12.6 % (11.5-20.0); WHITE BLOOD COUNT 10.3 Th/cmm (4.8-10.8)
[2016-11-12 07:01] LABS: ANION GAP 9.7 (7.0-16.0); BUN - UREA NITROGEN 13 mg/dL (7-25); CALCIUM SERUM 8.9 mg/dL (8.6-10.3); CARBON DIOXIDE 29.5 mEq/L (21.0-31.0); CHLORIDE 102 mEq/L (98-107); GLUCOSE 107 mg/dL (70-105); POTASSIUM SERUM 3.2 mEq/L (3.5-5.1); SODIUM SERUM 138 mEq/L (136-145)
[2016-11-12 07:04] LABS: HEMATOCRIT 38.8 % (39.0-49.0); PLATELET COUNT 182 Th/cmm (150-400)
[2016-11-12 09:49] LABS: BILIRUBIN,DIRECT 0.38 mg/dL (0.0-0.2); BILIRUBIN,TOTAL 1.3 mg/dL (0.3-1.0)
[2016-11-12] MEDS ORDERED: Potassium Chloride 20 mEq ER Tab PO ONE (10:31)
--- NOTE | 2016-11-12 11:19 | Internal Medicine Prog Note ---
Internal Medicine Subjective - Subjective Service Date: 11/12/16 (dc summary [id number]) Patient is:: awake, verbal, interactive Patient Complaints of:: other (dysuria) Per staff patient has:: no adverse event, no episodes of fall, tolerating meds Internal Medicine Objective - Results Result Diagrams: 11/12/16 06:25 11/12/16 06:25 Recent Labs: Laboratory Last Values WBC 10.3 Th/cmm (4.8-10.8) 11/12/16 06:25 RBC 4.25 Mil/cmm (3.80-5.80) 11/12/16 06:25 Hgb 13.0 gm/dL (12.6-17.4) 11/12/16 06:25 Hct 38.8 % (39.0-49.0) L D 11/12/16 06:25 MCV 91.1 fl (80-99) 11/12/16 06:25 MCH 30.6 pg (27.0-31.0) 11/12/16 06:25 MCHC Differential 33.6 pg (28.0-36.0) 11/12/16 06:25 RDW 12.6 % (11.5-20.0) 11/12/16 06:25 Plt Count 182 Th/cmm (150-400) D 11/12/16 06:25 MPV 9.1 fl 11/12/16 06:25 Neutrophils % 70.5 % (40.0-80.0) 11/12/16 06:25 Band Neutrophils % 1 % (0-10) 11/10/16 06:55 Lymphocytes % 12.1 % (20.0-50.0) L 11/12/16 06:25 Monocytes % 9.9 % (2.0-10.0) 11/12/16 06:25 Eosinophils % 7.5 % (0.0-5.0) H 11/12/16 06:25 Basophils % 0.0 % (0.0-2.0) 11/12/16 06:25 Neutrophils (Manual) 83 % (40-80) H 11/10/16 06:55 Lymphocytes 9 % (20-50) L 11/10/16 06:55 Monocytes 7 % (2-10) 11/10/16 06:55 Platelet Estimate ADEQUATE (NORMAL) 11/10/16 06:55 Platelet Morphology PLATELET CLUMPS SEEN (NORMAL) 11/10/16 06:55 RBC Morph Micro Appear NORMAL (NORMAL) 11/10/16 06:55 PT 11.0 SECONDS (9.5-11.5) 11/05/16 05:55 INR 1.06 (0.5-1.4) 11/05/16 05:55 PTT (Actin FS) 27.9 SECONDS (26.0-38.0) 11/05/16 05:55 Sodium 138 mEq/L (136-145) 11/12/16 06:25 Potassium 3.2 mEq/L (3.5-5.1) L 11/12/16 06:25 Chloride 102 mEq/L (98-107) 11/12/16 06:25 Carbon Dioxide 29.5 mEq/L (21.0-31.0) 11/12/16 06:25 Anion Gap 9.7 (7.0-16.0) 11/12/16 06:25 BUN 13 mg/dL (7-25) 11/12/16 06:25 Creatinine 1.0 mg/dL (0.7-1.3) 11/12/16 06:25 Est GFR ( Amer) TNP 11/12/16 06:25 Est GFR (Non-Af Amer) TNP 11/12/16 06:25 BUN/Creatinine Ratio 13.0 11/12/16 06:25 Glucose 107 mg/dL (70-105) H 11/12/16 06:25 Calcium 8.9 mg/dL (8.6-10.3) 11/12/16 06:25 Magnesium 1.9 mg/dL (1.9-2.7) 11/10/16 06:55 Total Bilirubin 1.3 mg/dL (0.3-1.0) H 11/12/16 06:25 Direct Bilirubin 0.38 mg/dL (0.0-0.2) H 11/12/16 06:25 AST 23 U/L (13-39) 11/12/16 06:25 ALT 18 U/L (7-52) 11/12/16 06:25 Alkaline Phosphatase 64 U/L (34-104) 11/12/16 06:25 Ammonia 43 umol/L (16-53) 11/05/16 05:55 Total Protein 6.5 gm/dL (6.0-8.3) 11/12/16 06:25 Albumin 3.3 gm/dL (4.2-5.5) L 11/12/16 06:25 Globulin 3.2 gm/dL 11/12/16 06:25 Albumin/Globulin Ratio 1.0 (1.0-1.8) 11/12/16 06:25 Lipase 14 U/L (11-82) 11/04/16 12:37 Tumor Marker AFP 7.6 ng/mL (0.0-8.3) 11/05/16 05:55 Carcinoembryonic Ag 1.8 ng/mL (0.0-4.7) 11/05/16 05:55 Vitamin B12 615 pg/mL (211-946) 11/05/16 05:55 Folic Acid >20.0 ng/mL (>3.0) 11/05/16 05:55 TSH 1.42 uIU/ml (0.34-5.60) 11/05/16 05:55 Urine Source RANDOM 11/04/16 12:41 Urine Color YELLOW 11/04/16 12:41 Urine Clarity SL. CLOUDY (CLEAR) 11/04/16 12:41 Urine pH 6.5 11/04/16 12:41 Ur Specific [place] 1.025 (1.005-1.030) 11/04/16 12:41 Urine Protein NEGATIVE mg/dL (NEGATIVE) 11/04/16 12:41 Urine Glucose (UA) NEGATIVE mg/dL (NEGATIVE) 11/04/16 12:41 Urine Ketones NEGATIVE mg/dL (NEGATIVE) 11/04/16 12:41 Urine Blood NEGATIVE (NEGATIVE) 11/04/16 12:41 Urine Nitrate NEGATIVE (NEGATIVE) 11/04/16 12:41 Urine Bilirubin NEGATIVE (NEGATIVE) 11/04/16 12:41 Urine Urobilinogen 0.2 E.U./dL (0.2 - 1.0) 11/04/16 12:41 Ur Leukocyte Esterase NEGATIVE (NEGATIVE) 11/04/16 12:41 Urine RBC NONE SEEN /hpf (0-5) 11/04/16 12:41 Urine WBC NONE SEEN /hpf (0-5) 11/04/16 12:41 Ur Epithelial Cells RARE /lpf (FEW) 11/04/16 12:41 Urine Bacteria NONE SEEN /hpf (NONE SEEN) 11/04/16 12:41 - Physical Exam Vitals and I&O: Vital Signs Temp 98.4 F 11/12/16 08:23 Pulse 82 11/12/16 08:23 Resp 17 11/12/16 08:23 BP 153/82 11/12/16 08:23 Pulse Ox 100 11/12/16 08:23 Intake & Output 11/11/16 11/12/16 11/12/16 18:59 06:59 18:59 Intake Total 250.000 150 Output Total 200 Balance 250.000 -50 Weight (lbs) 163 lb Intake: Intake, IV Amount 250.000 150 Piperacillin Sodium/ 50 50 Tazobact 3.375 gm In Sodium Chloride 0.9% 50 ml @ 100 mls/hr IV Q8H [facility] Rx#:[id number] metroNIDAZOLE 500mg/NS 200.000 100 100mL 500 mg In 100 ml @ 100 mls/hr IV Q8HR [facility] Rx #:[id number] Output: Urine 200 Other: Stool Characteristics Soft Formed Active Medications: Current Medications Acetaminophen (Tylenol) 650 mg PO Q4H PRN PRN Reason: Pain Or Fever above 101 Stop: 01/03/17 17:06 Last Admin: 11/12/16 09:03 Dose: 650 mg Al Hydrox/Mg Hydrox/Simethicone (Maalox) 30 ml PO Q6H PRN PRN Reason: Dyspepsia Stop: 01/03/17 17:06 Last Admin: 11/10/16 21:15 Dose: 30 ml Albuterol Sulfate (Albuterol 2.5mg/3ml Neb Ud) 2.5 mg HHN Q2HRT PRN PRN Reason: Shortness of Breath or Wheeze Stop: 01/03/17 17:06 Last Admin: 11/08/16 17:43 Dose: 2.5 mg Bisacodyl (Dulcolax 10 Mg Supp) 10 mg RC DAILY PRN PRN Reason: Constipation IF MOM INEFFECTIV Stop: 01/04/17 15:19 Last Admin: 11/11/16 16:49 Dose: 10 mg Guaifenesin (Robitussin) 200 mg PO Q4HR PRN PRN Reason: Cough or Congestion Stop: 01/03/17 17:06 Heparin Sodium (Porcine) (Heparin) 5,000 units SUBQ Q12H [facility] Stop: 01/04/17 20:59 Last Admin: 11/12/16 09:03 Dose: 5,000 units Piperacillin Sod/Tazobactam (Sod 3.375 gm/ Sodium Chloride) 50 mls @ 100 mls/ hr IV Q8H [facility] Stop: 01/08/17 11:59 Last Admin: 11/12/16 03:18 Dose: 100 mls/hr Metronidazole (Flagyl) 500 mg in 100 mls @ 100 mls/hr IV Q8HR [facility] Stop: 01/09/17 20:59 Last Admin: 11/12/16 04:08 Dose: 100 mls/hr Ipratropium [place] (Atrovent Neb 0.5mg/2.5ml) 0.5 mg HHN Q2HRT PRN PRN Reason: Shortness of Breath or Wheeze Stop: 01/03/17 17:06 Last Admin: 11/08/16 17:43 Dose: 0.5 mg Magnesium Hydroxide (Milk Of Magnesia) 30 ml PO HS PRN PRN Reason: Constipation Stop: 01/04/17 15:19 Last Admin: 11/05/16 20:42 Dose: 30 ml Magnesium Hydroxide (Milk Of Magnesia) 30 ml PO HS PRN PRN Reason: Constipation Stop: 01/10/17 14:42 Meclizine HCl (Antivert) 25 mg PO DAILY PRN PRN Reason: Nausea / Vomiting Stop: 01/03/17 17:06 Miscellaneous (Vte Chemical Prophylaxis Screen/ Admission) 1 ea [facility] PRN PRN PRN Reason: PROTOCOL Stop: 01/04/17 16:59 Morphine Sulfate (Morphine) 2 mg IVP Q4H PRN PRN Reason: Pain (Severe) Stop: 01/03/17 17:06 Last Admin: 11/11/16 12:44 Dose: 2 mg Olanzapine (Zyprexa) 2.5 mg PO HS ALYSA PRN Reason: Protocol Stop: 01/04/17 20:59 Last Admin: 11/11/16 21:52 Dose: 2.5 mg Ondansetron HCl (Zofran) 4 mg IV Q8H PRN PRN Reason: Nausea / Vomiting Stop: 01/03/17 17:06 Pantoprazole Sodium (Protonix) 40 mg IVP BID [facility] Stop: 01/04/17 08:59 Last Admin: 11/12/16 10:20 Dose: Not Given Sertraline HCl (Zoloft) 25 mg PO DAILY ALYSA PRN Reason: Protocol Stop: 01/05/17 08:59 Last Admin: 11/12/16 09:03 Dose: 25 mg Sodium Phosphate (Fleet Enema) 135 ml RC PRN PRN PRN Reason: Constipation Stop: 01/10/17 14:43 Tamsulosin HCl (Flomax) 0.4 mg PO DAILY ALYSA Stop: 01/10/17 08:59 Last Admin: 11/12/16 09:04 Dose: 0.4 mg General: alert, appears older HEENT: NC/AT, PERRLA Neck: Supple Cardiovascular: RRR, Normal S1, Normal S2 Abdomen: soft, non-tender, non-distended Extremities: excoriation Neurological: no change - Procedures Procedures: Procedures Procedure Code Date EMERGENCY DEPT VISIT 98684 06/14/11 INSERT INDWELLING CATH 57.94 06/14/11 INSERT TEMP BLADDER CATH 78844 06/14/11 REMOVAL OF GALLBLADDER 10308 11/04/16 REPAIR ABDOMINAL WALL, OPEN APPROACH [id number] 11/04/16 RESECTION OF GALLBLADDER, OPEN APPROACH [id number] 11/04/16 RPR VENTRAL CALIN INIT REDUC 17509 11/04/16 Internal Medicine Assmt/Plan - Assessment Assessment: abd pain S/P EXP. LAP. CHOLECYSTECTOMY INCISIONAL HERNIA REPAIR INCIDENTAL APPENDECTOMY generalized weakness cholelithiasis htn low albumin anxiety insomnia FECAL IMPACTION DYSURIA - Plan Plan: advance diet as tolerated incentive spirometry am labs ivf for hydration iv antibiotics Nutritional Asmnt/Malnutr-PDOC - Dietary Evaluation Malnutrition Findings (Please click <Entered> for more info): Nutritional Asmnt/Malnutrition Start: 11/09/16 14: 45 Text: Status: Complete Freq: Document 11/09/16 14:45 GSUN (Rec: 11/09/16 14:58 GSUN [email or web address]) Nutritional Asmnt/Malnutrition Patient General Information Nutritional Screening Moderate Risk Screening Diagnosis Abd pain, cholelithiasis, HTN Pertinent Medical Hx/Surgical Hx HTN, colon ca s/p resection, constipation, gastritis, anxiety Subjective Information 71 year old male. 11/08: cholecystectomy incisional hernia repair incidental appendectomy. Pt was sitting in chair next to bed resting, family at bedside. Pt was pleasant, appeared anxious, gave short responses. 11/08 breakfast: clear liquid diet ordered, pt has been toelrating well. Pt stated usually good appetite, denied nutritional concerns. Teeth intact. No muscle/fat wasting noted. Last BM 11/07 x2. Current Diet Order/ Nutrition Support Clear liquid Pertinent Medications Dulcolax, D5-0.9%ns, MOM, Morphine, Zofran, Protonix Pertinent Labs Reviewed. 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 Estimated Nutritional Goals BEE in Kcals: Using Current wt Calories/Kcals/Kg CBW 159lb/72.3kg Kcals Calculated 1808-2169kcal (25-30kcal/kg) Protein: Using Current wt Protein Calculated 72g (1g/kg) Fluid: ml 1808-2169ml (1ml/kcal) Nutritional Problem 1. Problem Problem Inadequate oral food beverage intake related to Etiology GI function s/p cholecystectomy incisional hernia repair incidental appendectomy aeb Signs/Symptoms: currently on clear liquid Intervention/Recommendation Comments 1. Recommend diet advance at tolerated to low fat diet. 2. Provided brief nutrition education on low fat diet post cholecystectomy, pt and family has no questions at this time. Expected Outcomes/Goals Expected Outcomes/Goals 1. PO intake to meet at least 75% of estimated nutritional needs.
--- NOTE | 2016-11-12 14:33 | Discharge Summary ---
DATE OF DISCHARGE: 11/12/2016 DISCHARGE DIAGNOSES: Abdominal pain status post exploratory laparotomy, cholecystectomy, incisional hernia repair, incidental appendectomy, generalized weakness, cholelithiasis, hypertension, anxiety, insomnia, dysuria, fecal impaction, which resolved. HISTORY OF PRESENT ILLNESS: This is a 71-year-old male with previous colon cancer, status post resection, comes in for his vague abdominal discomfort and not feeling well, seen initially in the ER 1-2 weeks ago with the same complaints. The patient is admitted for further management. PHYSICAL EXAMINATION: GENERAL: The patient is well developed, well nourished, in no acute distress. VITAL SIGNS: Stable. HEENT: Head normocephalic, atraumatic. NECK: Supple. No mass. LUNGS: Clear bilaterally. HEART: Regular rate and rhythm. ABDOMEN: Soft, nontender. HOSPITAL COURSE: During the hospital stay, the patient was admitted to the telemetry unit. The patient had a surgical consultation done by Dr. Orosco. The patient had a HIDA scan done and the impression was chronic cholecystitis cannot be excluded, so on 11/08/2016, the patient had an open cholecystectomy, lysis of dense adhesions, repair of ventral hernia and incidental appendectomy. The patient tolerated the procedure well. The patient was kept on empiric antibiotics of Flagyl. The patient complained of dysuria, so the patient was placed on Flomax 0.4 mg p.o. daily. Also, Null catheter was in place as well. The patient's white count was being monitored daily. The patient's potassium on November 12 was 3.2, and the patient's potassium was replaced with 40 mEq p.o. The patient was stable for discharge. CONDITION UPON DISCHARGE: Fair. DISPOSITION: The patient is going home. Educated the patient to follow up with his urologist on November 16 since he has appointment and to follow up with PCP in 2-3 days. JOB# [id number]
--- NOTE | 2016-11-12 14:48 | General Progress Note ---
Subjective - Review of Systems Service Date: 11/12/16 Events since last encounter: improving labs tolerating diet moderate pain with moving, otherwise ok Subjective: brother has signed consent for surgery - will likely need open cholecystectomy due to previous surgeries Objective - Results Result Diagrams: 11/12/16 06:25 11/12/16 06:25 Recent Labs: Laboratory Last Values WBC 10.3 Th/cmm (4.8-10.8) 11/12/16 06:25 RBC 4.25 Mil/cmm (3.80-5.80) 11/12/16 06:25 Hgb 13.0 gm/dL (12.6-17.4) 11/12/16 06:25 Hct 38.8 % (39.0-49.0) L D 11/12/16 06:25 MCV 91.1 fl (80-99) 11/12/16 06:25 MCH 30.6 pg (27.0-31.0) 11/12/16 06:25 MCHC Differential 33.6 pg (28.0-36.0) 11/12/16 06:25 RDW 12.6 % (11.5-20.0) 11/12/16 06:25 Plt Count 182 Th/cmm (150-400) D 11/12/16 06:25 MPV 9.1 fl 11/12/16 06:25 Neutrophils % 70.5 % (40.0-80.0) 11/12/16 06:25 Band Neutrophils % 1 % (0-10) 11/10/16 06:55 Lymphocytes % 12.1 % (20.0-50.0) L 11/12/16 06:25 Monocytes % 9.9 % (2.0-10.0) 11/12/16 06:25 Eosinophils % 7.5 % (0.0-5.0) H 11/12/16 06:25 Basophils % 0.0 % (0.0-2.0) 11/12/16 06:25 Neutrophils (Manual) 83 % (40-80) H 11/10/16 06:55 Lymphocytes 9 % (20-50) L 11/10/16 06:55 Monocytes 7 % (2-10) 11/10/16 06:55 Platelet Estimate ADEQUATE (NORMAL) 11/10/16 06:55 Platelet Morphology PLATELET CLUMPS SEEN (NORMAL) 11/10/16 06:55 RBC Morph Micro Appear NORMAL (NORMAL) 11/10/16 06:55 PT 11.0 SECONDS (9.5-11.5) 11/05/16 05:55 INR 1.06 (0.5-1.4) 11/05/16 05:55 PTT (Actin FS) 27.9 SECONDS (26.0-38.0) 11/05/16 05:55 Sodium 138 mEq/L (136-145) 11/12/16 06:25 Potassium 3.2 mEq/L (3.5-5.1) L 11/12/16 06:25 Chloride 102 mEq/L (98-107) 11/12/16 06:25 Carbon Dioxide 29.5 mEq/L (21.0-31.0) 11/12/16 06:25 Anion Gap 9.7 (7.0-16.0) 11/12/16 06:25 BUN 13 mg/dL (7-25) 11/12/16 06:25 Creatinine 1.0 mg/dL (0.7-1.3) 11/12/16 06:25 Est GFR ( Amer) TNP 11/12/16 06:25 Est GFR (Non-Af Amer) TNP 11/12/16 06:25 BUN/Creatinine Ratio 13.0 11/12/16 06:25 Glucose 107 mg/dL (70-105) H 11/12/16 06:25 Calcium 8.9 mg/dL (8.6-10.3) 11/12/16 06:25 Magnesium 1.9 mg/dL (1.9-2.7) 11/10/16 06:55 Total Bilirubin 1.3 mg/dL (0.3-1.0) H 11/12/16 06:25 Direct Bilirubin 0.38 mg/dL (0.0-0.2) H 11/12/16 06:25 AST 23 U/L (13-39) 11/12/16 06:25 ALT 18 U/L (7-52) 11/12/16 06:25 Alkaline Phosphatase 64 U/L (34-104) 11/12/16 06:25 Ammonia 43 umol/L (16-53) 11/05/16 05:55 Total Protein 6.5 gm/dL (6.0-8.3) 11/12/16 06:25 Albumin 3.3 gm/dL (4.2-5.5) L 11/12/16 06:25 Globulin 3.2 gm/dL 11/12/16 06:25 Albumin/Globulin Ratio 1.0 (1.0-1.8) 11/12/16 06:25 Lipase 14 U/L (11-82) 11/04/16 12:37 Tumor Marker AFP 7.6 ng/mL (0.0-8.3) 11/05/16 05:55 Carcinoembryonic Ag 1.8 ng/mL (0.0-4.7) 11/05/16 05:55 Vitamin B12 615 pg/mL (211-946) 11/05/16 05:55 Folic Acid >20.0 ng/mL (>3.0) 11/05/16 05:55 TSH 1.42 uIU/ml (0.34-5.60) 11/05/16 05:55 Urine Source RANDOM 11/04/16 12:41 Urine Color YELLOW 11/04/16 12:41 Urine Clarity SL. CLOUDY (CLEAR) 11/04/16 12:41 Urine pH 6.5 11/04/16 12:41 Ur Specific Kimberly 1.025 (1.005-1.030) 11/04/16 12:41 Urine Protein NEGATIVE mg/dL (NEGATIVE) 11/04/16 12:41 Urine Glucose (UA) NEGATIVE mg/dL (NEGATIVE) 11/04/16 12:41 Urine Ketones NEGATIVE mg/dL (NEGATIVE) 11/04/16 12:41 Urine Blood NEGATIVE (NEGATIVE) 11/04/16 12:41 Urine Nitrate NEGATIVE (NEGATIVE) 11/04/16 12:41 Urine Bilirubin NEGATIVE (NEGATIVE) 11/04/16 12:41 Urine Urobilinogen 0.2 E.U./dL (0.2 - 1.0) 11/04/16 12:41 Ur Leukocyte Esterase NEGATIVE (NEGATIVE) 11/04/16 12:41 Urine RBC NONE SEEN /hpf (0-5) 11/04/16 12:41 Urine WBC NONE SEEN /hpf (0-5) 11/04/16 12:41 Ur Epithelial Cells RARE /lpf (FEW) 11/04/16 12:41 Urine Bacteria NONE SEEN /hpf (NONE SEEN) 11/04/16 12:41 - Physical Exam Vitals and I&O: Vital Signs Temp 98.1 F 11/12/16 13:22 Pulse 77 11/12/16 13:22 Resp 18 11/12/16 13:22 BP 137/79 11/12/16 13:22 Pulse Ox 96 11/12/16 13:22 Intake & Output 11/11/16 11/12/16 11/12/16 18:59 06:59 18:59 Intake Total 250.000 150 Output Total 200 Balance 250.000 -50 Weight (lbs) 73.936 kg Intake: Intake, IV Amount 250.000 150 Piperacillin Sodium/ 50 50 Tazobact 3.375 gm In Sodium Chloride 0.9% 50 ml @ 100 mls/hr IV Q8H [facility] Rx#:[id number] metroNIDAZOLE 500mg/NS 200.000 100 100mL 500 mg In 100 ml @ 100 mls/hr IV Q8HR [facility] Rx #:[id number] Output: Urine 200 Other: Stool Characteristics Soft Formed Active Medications: Current Medications Tamsulosin HCl (Flomax) 0.4 mg PO DAILY [facility] Stop: 01/10/17 08:59 Last Admin: 11/12/16 09:04 Dose: 0.4 mg - Procedures Procedures: Procedures Procedure Code Date EMERGENCY DEPT VISIT 07847 06/14/11 INSERT INDWELLING CATH 57.94 06/14/11 INSERT TEMP BLADDER CATH 09960 06/14/11 REMOVAL OF GALLBLADDER 65434 11/04/16 REPAIR ABDOMINAL WALL, OPEN APPROACH [id number] 11/04/16 RESECTION OF GALLBLADDER, OPEN APPROACH [id number] 11/04/16 RPR VENTRAL CALIN INIT REDUC 97994 11/04/16 Assessment/Plan - Problem List Patient Problems: All Active Problems EPIGASTRIC AND LOWER CHEST TIGHTNESS (Acute) URINARY RETENTION AND DISCONTINUATION FOLEYY (Acute) URINARY RETENTION WITH BLEEDING (Acute) Nutritional Asmnt/Malnutr-PDOC - Dietary Evaluation Malnutrition Findings (Please click <Entered> for more info): Nutritional Asmnt/Malnutrition Start: 11/09/16 14: 45 Text: Status: Complete Freq: Document 11/09/16 14:45 GSUN (Rec: 11/09/16 14:58 GSUN [id number]) Nutritional Asmnt/Malnutrition Patient General Information Nutritional Screening Moderate Risk Screening Diagnosis Abd pain, cholelithiasis, HTN Pertinent Medical Hx/Surgical Hx HTN, colon ca s/p resection, constipation, gastritis, anxiety Subjective Information 71 year old male. 11/08: cholecystectomy incisional hernia repair incidental appendectomy. Pt was sitting in chair next to bed resting, family at bedside. Pt was pleasant, appeared anxious, gave short responses. 11/08 breakfast: clear liquid diet ordered, pt has been toelrating well. Pt stated usually good appetite, denied nutritional concerns. Teeth intact. No muscle/fat wasting noted. Last BM 11/07 x2. Current Diet Order/ Nutrition Support Clear liquid Pertinent Medications Dulcolax, D5-0.9%ns, MOM, Morphine, Zofran, Protonix Pertinent Labs Reviewed. Nutritional Hx/Data Height 1.78 m Height (Calculated Centimeters) 177.8 Current Weight (lbs) 72.121 kg Weight (Calculated Kilograms) 72.1 Weight (Calculated Grams) 97194.2 [place] Body Weight 166 Weight Status Approriate GI Symptoms Skin Integrity/Comment: Ashwin Saenz. assessment specialist: skin intact. Estimated Nutritional Goals BEE in Kcals: Using Current wt Calories/Kcals/Kg CBW 159lb/72.3kg Kcals Calculated 1808-2169kcal (25-30kcal/kg) Protein: Using Current wt Protein Calculated 72g (1g/kg) Fluid: ml 1808-2169ml (1ml/kcal) Nutritional Problem 1. Problem Problem Inadequate oral food beverage intake related to Etiology GI function s/p cholecystectomy incisional hernia repair incidental appendectomy aeb Signs/Symptoms: currently on clear liquid Intervention/Recommendation Comments 1. Recommend diet advance at tolerated to low fat diet. 2. Provided brief nutrition education on low fat diet post cholecystectomy, pt and family has no questions at this time. Expected Outcomes/Goals Expected Outcomes/Goals 1. PO intake to meet at least 75% of estimated nutritional needs.
== END 2016-11-12 14:35 | disposition home or self-care (01) | DRG 415 ==
LOC: ER 11:56 → MSI 16:45
PROVIDERS: ADMIT Internal Medicine; ATTEND Internal Medicine
PROC: 0FT40ZZ Resection of Gallbladder, Open Approach (ICD-10-PCS; principal; 2016-11-08)
PROC: 0DTJ0ZZ Resection of Appendix, Open Approach (ICD-10-PCS; 2016-11-08)
PROC: 0WQF0ZZ Repair Abdominal Wall, Open Approach (ICD-10-PCS; 2016-11-08)
PROC: 0DNW0ZZ Release Peritoneum, Open Approach (ICD-10-PCS; 2016-11-08)
DX: K80.10 Calculus of gallbladder with chronic cholecystitis without obstruction (principal); E44.0 Moderate protein-calorie malnutrition; K43.0 Incisional hernia with obstruction, without gangrene; I10 Essential (primary) hypertension; F41.9 Anxiety disorder, unspecified; G47.00 Insomnia, unspecified; F32.9 Major depressive disorder, single episode, unspecified; K66.0 Peritoneal adhesions (postprocedural) (postinfection); R33.9 Retention of urine, unspecified; I25.10 Atherosclerotic heart disease of native coronary artery without angina pectoris; Z68.23 Body mass index [BMI] 23.0-23.9, adult; Z87.891 Personal history of nicotine dependence; Z85.038 Personal history of other malignant neoplasm of large intestine; Z90.49 Acquired absence of other specified parts of digestive tract
CPT/HCPCS: 36415-UA; 71010-TC; 74000-TC; 76857-TC; 78226-TC; 80048-TC; 80053-TC; 80076-TC; 81001-TC; 82105-90; 82140-TC; 82378-90; 82607-90; 82746-90; 83690-TC; 83735-TC; 84443-TC; 85007-TC; 85025-TC; 85027-TC; 85610-TC; 88304-TC; 90779; 90799; 93005; 93970-TC-50; 94760; 96372; A9537; C9113; J0360; J1644; J1940; J2250; J2270; J2543; J2704; J2710; J7042; J7613; V2790; X6024; X6026; X6258; Z7610

== ENCOUNTER 2016-11-24 13:06 | Emergency (ER) | payer MEDICARE, MEDICAID ==
--- NOTE | 2016-11-24 13:36 | ED Physician Chart ---
Chief Complaint/HPI - Patient Information Date Seen:: 11/24/16 Time Seen:: 13:15 Chief Complaint:: dysuria History of Present Illness:: onset x 2 days of dysuria, urinary retention, urinary hesitancy, and trouble urinating; pt had a normal bladder scan yesterday; pt denies Abd. Pain, Flank Pain, hematuria, C/P, SOB, cough, A/N/V/D/C, fever, chills, neck pain, or headaches; pt has no abd. distention, bladder distention, or urinary retention today; pt is eatingv and urinating well; pt last urinated one hour SPECIALIST PHYSICIAN Allergies:: Allergies Allergy/AdvReac Type Severity Reaction Status Date / Time No Known Allergies Allergy Verified 11/04/16 12:16 Vitals:: Vital Signs - 8 hr 11/24/16 13:14 Temp 98.3 F HR 81 RR 16 BP 128/61 O2 Sat % 97 Historian:: Patient, Family Member Review:: Nurse's Note Reviewed Review of Systems - Review of Systems General/Constitutional: Fever, Chills, No weight loss, No weakness, No diaphoresis, No edema, No loss of appetite Skin: Skin lesions, Rash, No bruising Head: No headache, No light-headedness Eyes: No loss of vision, No pain, No diplopia ENT: No earache, No nasal drainage, No sore throat, No tinnitus Neck: No neck pain, No swelling, No thyromegaly, No stiffness, No mass noted Cardio Vascular: No chest pain, No palpitations, No PND, No orthopnea, No edema Pulmonary: No SOB, No cough, No sputum, No wheezing GI: Nausea, Vomiting, Diarrhea, Pain, No melena, No hematochezia, Constipation, No hematemesis G/U: Dysuria, No frequency, No hematuria Musculoskeletal: No bone or joint pain, No back pain, No muscle pain Endocrine: No polyuria, No polydipsia Psychiatric: No prior psych history, No depression, No anxiety, No suicidal ideation, No homicidal ideation, No auditory hallucination, No visual hallucination Hematopoietic: No bruising, No lymphadenopathy Allergic/Immuno: No urticaria, No angioedema Neurological: No syncope, No focal symptoms, No weakness, No paresthesia, No headache, No seizure, No dizziness, No confusion, No vertigo Past Medical History - Past Medical History Obtainable: Yes Past Medical History: HTN, PUD/GERD, Arthritis, Other (Cholithiasis; BPH; UTI) Family History: HTN Social History: Non Smoker, No Alcohol, No Drug Use, Single Surgical History: Cholecystectomy Psychiatricy History: None Medication: Reviewed Family Medical History - Family Member Mother History Unknown: Yes Ethnicity: Non- Living Status: Still Living Hx Family Cancer: No Hx Family Coronary Artery Disease: No Hx Family Congestive Heart Failure: No Hx Family Hypertension: No Hx Family Stroke: No Hx Family Diabetes: No Hx Family Seizures: No Hx Family Dementia: No Hx Family AIDS: No Hx Family HIV: No Hx Family COPD: No Hx Family Hepatitis: No Hx Family Psychiatric Problems: No Hx Family Tuberculosis: No Physical Exam - Physical Examination General/Constitutional: Awake, Well-developed, well-nourished, Alert, No distress, GCS 15, Non-toxic appearing, Ambulatory Head: Atraumatic Eyes: Lids, conjuctiva normal, PERRL, EOMI Skin: Nl inspection, No rash, No skin lesions, No ecchymosis, Well hydrated, No lymphadenopathy ENMT: External ears, nose nl, Nasal exam nl, Lips, teeth, gums nl Neck: Nontender, Full ROM w/o pain, No JVD, No nuchal rigidity, No bruit, No mass, No stridor Respiratory: Nl effort/Exclusion, Clear to Auscultation, No Wheeze/Rhonchi/Rales Cardio Vascular: RRR, No murmur, gallop, rubs, NL S1 S2 GI: No tenderness/rebounding/guarding, No organomegaly, No hernia, Normal BS's, Nondistended, No mass/bruits, No McBurney tenderness : No CVA tenderness Extremities: No tenderness or effusion, Full ROM, normal strength in all extremities, No edema, Normal digits & nails Neuro/Psych: Alert/oriented, DTR's symmetric, Normal sensory exam, Normal motor strength, Judgement/insight normal, Mood normal, Normal gait, No focal deficits Misc: normal gait, Normal back, No paraspinal tenderness ED Septic Shock - . Is Septic Shock (SBP<90, OR Lactate>4 mmol\L) present?: No - <6hrs of presentation: Vital Signs: Vital Signs - 8 hr 08// 13:14 Temp 98.3 F HR 81 RR 16 BP 128/61 O2 Sat % 97 Reassessment (Disposition) - Reassessment Reassessment:: pt is comfortable upon discharge Reassessment Condition:: Improved - Diagnosis Diagnosis:: UTI; Urinary Retention; Cystitis; BPH; Abd. Pain/ Flank Pain-resolved; Fever; Dysuria - Aftercare/Follow up Instructions Aftercare/Follow-Up Instructions:: Counseled pt regarding lab results/diagnosis & need follow up, Refer to Discharge Instructions, Counseled pt & family regarding lab results/diagnosis & need follow up Medication Prescribed:: Rx: Levaquin 500mg po qd x 10 days; Tylenol 500mg po qid prn fever - Patient Disposition Discharge/Transfer:: Home Condition at Disposition:: Stable, Improved (RTER prn if existing s/s reoccur and/or get worse and/or any other new s/s occur; ACIs given for all above Dx; Refer to GI/ Specialists/[employer] [facility]; F/U with PMD in one day or prn; RTER prn if concerned)
== END 2016-11-24 13:45 | disposition home or self-care (01) ==
LOC: ER 13:06
DX: N39.0 Urinary tract infection, site not specified (principal); R33.9 Retention of urine, unspecified; N30.90 Cystitis, unspecified without hematuria; N40.0 Benign prostatic hyperplasia without lower urinary tract symptoms; R30.0 Dysuria; I10 Essential (primary) hypertension; K21.9 Gastro-esophageal reflux disease without esophagitis; Z90.49 Acquired absence of other specified parts of digestive tract
CPT/HCPCS: Z7502

== ENCOUNTER 2017-01-28 19:42 | Emergency (ER) | payer MEDICARE, MEDICAID ==
[2017-01-28 21:07] LABS: % BASOPHILS 0.8 % (0.0-2.0); % EOSINOPHILS 1.2 % (0.0-5.0); % LYMPHOCYTES 15.2 % (20.0-50.0); % MONOCYTES 6.1 % (2.0-10.0); % NEUTROPHILS 76.7 % (40.0-80.0); MEAN CORPUSCULAR HEMOGLOBIN 30.1 pg (27.0-31.0); MEAN CORPUSCULAR HGB CONC 33.9 pg (28.0-36.0); MEAN PLATELET VOLUME 8.2 fl; PLATELET COUNT 217 Th/cmm (150-400); RED BLOOD COUNT 5.23 Mil/cmm (3.80-5.80); RED CELL DISTRIBUTION WIDTH 12.8 % (11.5-20.0); WHITE BLOOD COUNT 9.2 Th/cmm (4.8-10.8)
[2017-01-28 21:10] LABS: HEMATOCRIT 46.6 % (41.0-60); HEMOGLOBIN 15.8 gm/dL (12-16)
[2017-01-28] MEDS ORDERED: Levofloxacin 750mg/150mL 750 MG/150 ML BAG IV ONE ×2 (21:17→21:39)
[2017-01-28 21:22] LABS: BUN - UREA NITROGEN 11 mg/dL (7-25); BUN/CREATININE RATIO 12.2; CALCIUM SERUM 9.1 mg/dL (8.6-10.3); CARBON DIOXIDE 26.4 mEq/L (21.0-31.0); CHLORIDE 105 mEq/L (98-107); CREATININE - SERUM 0.9 mg/dL (0.7-1.3); GLUCOSE 117 mg/dL (70-105); MAGNESIUM 2.3 mg/dL (1.9-2.7); POTASSIUM SERUM 4.4 mEq/L (3.5-5.1); SODIUM SERUM 139 mEq/L (136-145)
[2017-01-28 21:35] LABS: URINE BILIRUBIN NEGATIVE (NEGATIVE); URINE BLOOD TRACE (NEGATIVE); URINE GLUCOSE (UA) NEGATIVE (NEGATIVE); URINE KETONE NEGATIVE (NEGATIVE); URINE PROTEIN NEGATIVE (NEGATIVE); URINE UROBILINOGEN 0.2 E.U./dL (0.2 - 1.0)
[2017-01-28 21:41] LABS: URINE AMORPHOUS SEDIMENT FEW URATES (NONE SEEN); URINE BACTERIA FEW /hpf (NONE SEEN); URINE COLOR YELLOW; URINE EPITHELIAL CELLS RARE /lpf (FEW); URINE RBC 0-2 /hpf (0-5); URINE WBC 0-2 /hpf (0-5)
--- NOTE | 2017-02-01 14:35 | ER Physician Documentation ---
DATE OF SERVICE: 01/28/2017 This is a 71-year-old male patient who was seen in the Emergency Room on bed #3 with his , I believe, at the bedside. TIME SEEN: 2120 hours. CHIEF COMPLAINT: Urinary retention, starting from 3 o'clock till 9 p.m. The patient is having discomfort in the abdomen and hence he came to the hospital. The patient was immediately taken over. The history was taken from the patient. HISTORY OF PRESENT ILLNESS: The patient says that he has benign prostatic hypertrophy. He has had urinary retention, almost 3-4 times so far. This is his fourth time. He does not know about the surgery. He understands that surgery was ordered by the doctor, but so far, he has not achieved this goal of undergoing surgical treatment, I believe in the form of transurethral resection of the prostate, which is TURP. The patient was in respiratory distress, having pain, and the patient is not very anxious in getting any surgery done. The patient about 2 weeks ago stopped taking medication, Flomax, which was given to him. He says he has high blood pressure, but he does not take any medication. He also has some depression for which the gave me three medications. The dosage was not written. Restoril was for sleep. I am not sure it is 5 mg or 10 mg. Trazodone for depression is given. Again, the dose is not written. Klonopin whether it is 1 mg, 2 mg, or 0.5 mg, I am not sure, but these are the 3 medications plus Flomax he was taking, and Flomax was stopped. He is not taking any antibiotics. He does not have any fever, rigors, or any other complaints. PAST MEDICAL AND SURGICAL HISTORY: The patient had undergone surgery for removal of the gallbladder done by Dr. Orosco at this institution. I see a vertical scar in the abdomen, so I believe that it might not have been through laparoscopic surgery. It might have been open surgery unless it for some reason had to open up the patient. HOSPITAL COURSE: Here in the Emergency Room immediately Guero, the nurse, was kind enough to insert a Null catheter. Urine was collected and sent for urine routine and culture. Antibiotic Levaquin was given after the culture was sent. The patient was started on Flomax 0.4 mg twice a day. Proscar was given 5 mg once a day and the labs were ordered, urine routine and culture, magnesium, BNP, and CBC was ordered. CBC showed white count of 9.2, hemoglobin of 15.8, and hematocrit of 46.6. Other past history is essentially benign and negative except for depression, he was never hospitalized. PERSONAL HISTORY AND FAMILY HISTORY: He does not have any children. He does not have any other significant medical problems. He does smoke cigars once in a while. Alcohol: He denies it. Family history otherwise is benign and negative. REVIEW OF SYSTEMS: EYES: No history of double vision, blurring, or blindness. CENTRAL NERVOUS SYSTEM: Denied any TIA, stroke, encephalitis, and meningitis. No fever, chills, or rigors. No history of any intracranial tumors. The patient has depression as I mentioned is major problem that he has. CARDIAC: No history of chest pain. No history of any palpitations. No history of any cardiac arrhythmias like atrial fibrillation and atrial flutter. No history of any radiofrequency ablation done. No history of any chest pain, myocardial infarction, rheumatic fever, valvular heart disease, or pericardial disease. PULMONARY: No history of pneumonia, TB, pulmonary embolism, COPD, emphysema, or bronchitis. ABDOMEN: The patient has surgical scar in the abdomen of gallbladder surgery done at this institution by Dr. Orosco, and the patient has a small right-sided reducible indirect inguinal hernia, but there is no evidence of hydrocele at present. ENDOCRINE: No history of diabetes mellitus. The patient has no history of any hypo or hyperthyroidism. Bones and joints, no complaints. For hypertension, the patient is not taking any medication, also should be noted. GENITOURINARY: The patient denied any history of pyelonephritis or cystitis, but history of four times urinary retention was present. Peripheral vascular disease is essentially benign and negative. Trauma, injury, accident, etc. are benign and negative. PHYSICAL EXAMINATION: GENERAL: The patient appears to be awake, alert, oriented, and not in any acute cardiorespiratory distress. VITAL SIGNS: Temperature taken by the nurse shows temperature of 97.9, pulse of 86, blood pressure 137/87, respiratory rate of 19, oxygen saturation on room air 95%. Pain ratio is 9/10 at 1950 hours and 8 hours roughly an hour because he was short of breath. It is 9 and now that the Null catheter is in, draining nice clear white urine, the pain threshold will be measured again. I am pretty sure it must have gone down to 3 or 4 and will come down to near normal or 0 level pretty soon. The nurse will take that record of that. GENERAL: Otherwise, general examination shows the patient to be a little bit flushed up in the face. NECK: Veins are slightly distended. Jugular venous pressure is not elevated. The patient's jugular venous pressure is essentially normal. Carotids are normal. No bruit heard over the carotid artery. EXTREMITIES: No cyanosis, no petechia, and no ecchymosis. There is no edema. Peripheral pulses are normal. Upper extremity pulses are normal. Blood pressure was 165/61. CHEST: Clear. Trachea to be central. Fairly decent air entry present in both lungs without any rales, rhonchi, or bronchial wheezing. ABDOMEN: Soft. The patient has distention of the abdomen, mostly in the lower part of the abdomen where bladder is distended almost a little more than the umbilicus area and a surgical scar of cholecystectomy was done. He is being seen and right-sided small indirect inguinal hernia, reducible is noted. Bowel sounds are present. No evidence of any other abnormality is noted. CENTRAL NERVOUS SYSTEM: Grossly within normal limits. The patient has no tenderness noted in the costovertebral angle of both sides. This is because the patient has BPH and because of that, sometimes the patient has urinary tract infection, pyelonephritis, and this was mentioned. LABORATORY DATA: Kindly Dr. Garcia gave me the lab results. Also, as I mentioned earlier, the CBC count was normal. Electrolytes showed sodium of 139, potassium 4.4, chloride 105, CO2 of 26.4. Glucose is touch high 117, but this is a random glucose level. BUN is 11, creatinine 0.9, which is a very good finding. Magnesium level is normal 2.3, calcium is 9.1, so all these are normal except for random glucose is slightly high. CLINICAL IMPRESSION: The patient presented with urinary retention, most likely etiology of this is benign prostatic hypertrophy. This is the fourth episode of this patient so whenever we send the patient home, we will send the patient home on Null catheter with a bag tied to the leg and patient should see his M.D. followed by visit to the urologist so that TURP could be done JC, so that we do not have to keep on doing this thing. Urine was sent for routine and culture and till we get the culture back, one dose of Levaquin 750 mg IV was given to the patient and once we get the culture report, which is any abnormality is present, other bacteria is present, or any resistance of the organism is present, we will notify his M.D. about the findings of urine culture report. Other diagnosis that the patient carries is noncompliance should be noted both for TURP and both for not taking antihypertensive medications. Other diagnosis that he has includes depression and he takes three medications for this. Restoril is for sleep, whether he takes 5 mg or 10 mg, I am not aware, neither does the know, plus he takes trazodone, plus he takes Klonopin. Once the patient is stable and once we get some urine report back and showing no infection or anything, and the patient's pain level goes down, foot bag for Null catheter would be prudent and we will inform the patient's primary care physician that this procedure was done over here and the patient will be referred back to him to see tomorrow JC so one can arrange for the TURP whenever it is possible. Thanks to allow friends nurses for helping me, for the computer, and getting me lab results etc. JOB# [id number]
== END 2017-01-28 23:15 | disposition home or self-care (01) ==
LOC: ER 19:42
DX: Z46.6 Encounter for fitting and adjustment of urinary device (principal); R33.9 Retention of urine, unspecified
CPT/HCPCS: 99284; 96365; 51702; 36415; 85025; 87086; 81001; 83735; 80048; J1956; Z7502; Z7610

== ENCOUNTER 2017-01-29 11:00 | Emergency (ER) | payer MEDICARE, MEDICAID ==
[2017-01-29 11:53] LABS: URINE BILIRUBIN NEGATIVE (NEGATIVE); URINE BLOOD LARGE (NEGATIVE); URINE GLUCOSE (UA) NEGATIVE (NEGATIVE); URINE KETONE 15 mg/dL (NEGATIVE); URINE PH 5.5 (4.6 - 8.0); URINE PROTEIN 30 mg/dL (NEGATIVE); URINE UROBILINOGEN 0.2 E.U./dL (0.2 - 1.0)
[2017-01-29 12:06] LABS: URINE COLOR YELLOW
[2017-01-29 12:14] LABS: URINE BACTERIA FEW /hpf (NONE SEEN); URINE EPITHELIAL CELLS FEW /lpf (FEW); URINE RBC 50-100 /hpf (0-5); URINE WBC 0-2 /hpf (0-5)
--- NOTE | 2017-02-01 14:38 | ER Physician Documentation ---
DATE OF SERVICE: 01/29/2017 HISTORY OF PRESENT ILLNESS: This is a 71-year-old male patient. I am the ER physician. The patient was seen in the ER. The patient came today because he had a Null catheter that was inserted yesterday because of enlarged prostate and the patient had urinary retention 4 times and yesterday was the fourth time the Null catheter was inserted and the patient comes today saying that he is having pain and discomfort. He does not feel fine and he would like a Null catheter to be taken out. All the pros, risk, alternatives about not keeping the Nlul catheter were explained to the patient, but despite that the patient was insistent that the Null catheter should be taken out. Urine was rightly sent by the nurse and fortunately there are no wbc's seen. The patient was given Levaquin to cover the insertion of the Null that was done yesterday by ____. Another fine nurse working at our institution here in the ER. The patient other diagnoses were essentially ____ same. REVIEW OF SYSTEMS: Also reported yesterday, they are same. There is no change. The patient has some depression and for which he takes some medication, which were listed last night, not more than 12-15 hours ago. Review of systems is benign and negative except for the ones mentioned yesterday. PHYSICAL EXAMINATION: GENERAL: The patient appears to be awake, alert, oriented. He seems to be distressed with the Null catheter. The nurse rightly removed the Null catheter without any undue side effect. There is no bleeding in the urine. Urine was sent before. EYES: Conjunctivae pink. Sclerae white. HENT: Normal. GENERAL: Benign and negatives. No cyanosis, petechia, or ecchymosis. CHEST: Clear. Trachea being central with fairly decent air entry present in both lung patton without any rales, rhonchi, or bronchial breathing. ABDOMEN: Soft, benign, negative. Minimal tenderness was present when the Null catheter was in, but after the Null catheter out, the patient became comfortable. He still has some aches and pain and hopefully in a few hours that should also disappear. Liver and spleen not enlarged. No free fluid in the abdominal cavity. CENTRAL NERVOUS SYSTEMS: Normal. HEART: Normal heart sounds. ____. Second heart sound is physiologically split. Third heart sound is absent. CLINICAL IMPRESSION: The patient has a Null catheter because of benign prostatic hypertrophy inserted last night, close to 10:11 p.m. at night. Today around 12:30, the patient was here and Null catheter was removed per patient's request as it is bothering the patient. Other conditions with the patient are depression and other diagnosis that he has ____. Thank you again to the nurse taking care of the patient. The patient is going home. All the instructions were given to the patient and if the patient comes back again with retention, let us hope that Null catheter could be placed in again. In the meantime, the patient was instructed again and again that he would need a TURP and that should be done. The patient's other diagnosis remains the same. JOB# [id number]
== END 2017-01-29 12:50 | disposition home or self-care (01) ==
LOC: ER 11:00
DX: T83.84XA Pain due to genitourinary prosthetic devices, implants and grafts, initial encounter (principal)
CPT/HCPCS: 81001-TC; Z7502